=== PATIENT | male | born 1945 | race Caucasian/White ===

== ENCOUNTER 2018-07-17 23:59 | Observation (INO) ==
[2018-07-18 00:23] VITALS: BMI 27.2
--- NOTE | 2018-07-18 00:27 | DR.GENAD ---
HPI - Complaint/Symptoms Chief Complaint Doctors Comments: Patient states he has been having problems with his speech for the past three hours with a dull headache. states he has had a subdural 2002 and has been having TIA since. States he has had a lacunar infarct and has been diagnosed with cognitive decline. He denies chest pain or SOB. States he has a neuropathy and do not feel pain in his chest and did not feel any pain when he had his last ID. States he had a ID in 2000 and had two stents placed in [place]. He denies tobacco or alcohol usage. He is a patient of Dr. galeano and states he just saw his doctor in [place], neurologist a few months ago. States he is not taking a baby aspirin any more and is not taking any anticoagulation. Patient denies any recent trauma. - Nurses notes reviewed Nurses Notes Review: Yes - Source History Provided: Patient, Family Member - Mode of Arrival Mode of Arrival: Ambulatory - Timing Came on: Gradually - Duration Duration: Constant How lon Duration: Hours - Location Location: slurred speech; headache - Severity Severity: Mild - Modifying Factors Worsens:: nothing Improves:: nothing PMH - PMH Past Medical History: Coronary Artery Disease, Diabetes (Controlled with diet), Dyslipidemia, Hypertension, Kidney Stones Past Surgical History: Yes Surgical History: Angioplasty/Stents, Cholecystectomy, Lithotripsy - Family History Family Medical History: Diabetes Mellitus, Cancer, ID, Coronary Artery Disease, Heart Failure, Hypertension - Social History Do you use any recreational Drugs:: No ROS - Review of Systems Constitutional: No Symptoms Reported. negative: See HPI, Chills, Diaphoresis, Fever, Malaise, Weakness, Irritable, Fatigue, Loss of Appetite, Other Eyes: No Symptoms Reported ENTM: No Symptoms Reported Respiratoy: No Symptoms Reported. negative: See HPI, Productive Cough, Non- Productive Cough, Moist Cough, Dry Cough, Hacking Cough, Barking Cough, Brassy Cough, Orthopnea, Short of Breath, Stridor, Wheezing, Hemoptysis, Other Cardiovascular: No Symptoms Reported. negative: See HPI, Chest Pain, Edema, Palpitations, Syncope, Cyanosis, Skin Mottling, Other Gastrointestinal/Abdominal: No Symptoms Reported. negative: See HPI, Abdominal Pain, Constipation, Diarrhea, Nausea, Vomiting, Food Intolerance, Other Genitourinary: No Symptoms Reported. negative: See HPI, Discharge, Dysuria, Frequency, Hematuria, Pain, Bleeding, Other Neurological: No Symptoms Reported, Headache, Speech Problem Musculoskeletal: No Symptoms Reported Integumentary: No Symptoms Reported. negative: See HPI, Change in Color, Change in Hair/Nails, Dryness, Lesions, Lumps, Rash, Itching, Wound, Bruises, Juandice, Other Hematologic/Lymphatic: No Symptoms Reported Endocrine: No Symptoms Reported Psychiatric: No Symptoms Reported. negative: See HPI, Anxiety, Depression, Hallucinations, Excessive crying, Suicidal, Other PE - General Limitations: No Limitations General Appearance: Alert, In Distress (slight) - Head Head Exam: Normal Inspection, Atraumatic, Normocephalic - Eyes Eye exam: Normal Appearance, PERRL, EOMI. negative: Scleral Icterus, Conjunctival Injection, Nystagmus, Miosis, Mydrasis, Periorbital Swelling, Periorbital Tenderness, Other - ENT ENT Exam: Normal Exam, Normal Oropharynx, Normal External Ear Exam, Mucous Membranes Moist, TM's Normal Bilaterally External Ear Exam: Normal External Inspection TM/Canal Exam: Bilateral Normal Nose Exam: Normal Nose Exam Mouth Exam: Normal Inspection. negative: Drooling, Trismus, Lip Swelling, Tongue Elevation, Tongue Swelling, Laceration, Other Throat Exam: Normal Inspection. negative: Tonsillar Erythema, Tonsillomegaly, Tonsillar Exudate, R Peritonsillar Mass, L Peritonsillar Mass, Muffled Voice, Other - Neck Neck Exam: Normal Inspection, Full ROM, Trachea Midline. negative: Tenderness, Meningismus, Lymphadenopathy, Thyromegaly, Other - Chest Chest Inspection: Normal Inspection, Symmetric Chest Wall Rise - Respiratory Respiratory Exam: Normal Lung Sounds Bilat Respiratory Exam: Bilateral Clear to Auscultation - Cardiovascular Cardiovascular Exam: Regular Rate, Normal Rhythm, Normal Heart Sounds, Systolic Murmur - Abdominal Exam Abdominal Exam: Normal Inspection, Normal Bowel Sounds, Soft. negative: Distention, Tenderness, Guarding, Rebound, Rigidity, Dimnished Bowel Sounds, Hyperactive Bowel Sounds, Hypoactive Bowel Sounds, Organomegaly, Trauma, Incision, Ascites, Mass, Bruit, Pulsatile Mass, Hernia, Other Abdominal Tenderness: negative: RUQ, RLQ, LUQ, LLQ, Epigastrium, Suprapubic, Diffuse, Mild, Moderate, Severe, Other - Extremities Extremities Exam: Normal Inspection, Full ROM, Normal Capillary Refill. negative: Tenderness, Edema, Joint Swelling, Calf Tenderness, Other - Back Back Exam: Normal Inspection, Full ROM. negative: Tenderness, (R) CVA Tende rness, (L) CVA Tenderness, Muscle Spasm, Paraspinal Tenderness, Vertebral Tenderness, Rashes, (R) Sciatic Notch Tenderness, (L) Sciatic Notch Tendern, (R) Straight Leg Raise, (L) Straight Leg Raise, Other - Neurologic Neurological Exam: Alert, Oriented X3, CN II-XII Intact, Reflexes Normal. negative: Normal Gait (gait not tested) - Psychiatric Psychiatric Exam: Normal Affect, Normal Mood. negative: Depressed, Agitated, Anxious, Flat Affect, Manic, Homicidal Ideation, Suicidal Ideation, Other - Skin Skin Exam: Warm, Dry, Intact, Normal Color - Vital Signs Vitals: Temperature 97.8 F Pulse Rate [Apical] 67 Pulse Rate 76 Respiratory Rate 16 Blood Pressure [Left Arm] 183/97 Blood Pressure 193/95 O2 Sat by Pulse Oximetry 100 Course - Reevaluation 1st: Improved - Consultation Called: : Call Returned: :28 (Dr. Galeano to admit) - Education/Counseling Education/Counseling: Patient, Family Educated On: Treatment, Diagnosis, Needs for Follow Up ROR - Labs Reviewed Laboratory Results Reviewed?: Yes (All labs and x-ray results reviewed and discussed with patient and spouse) Result Diagrams: 07/18/18 00:20 07/18/18 00:20 - XRAY XRAY Interpreted by: Radiologist (CT head: No acute intracranial abnormality. Lacunar infarct of left thalamus, chronic) XRAY Findings: CXR: No acute cardiopulmonary changes noted. - Labs Reviewed Laboratory: WBC 8.5 X10^3/uL (3.6-10.0) 07/18/18 00:20 RBC 5.28 X10^6/uL (4.7-6.0) 07/18/18 00:20 Hgb 16.0 g/dL (13.5-18.0) 07/18/18 00:20 Hct 47.2 % (42.0-54.0) 07/18/18 00:20 MCV 89.4 fL (80.0-100.0) 07/18/18 00:20 MCH 30.3 pg (27.0-34.0) 12/09/18 00:20 MCHC 33.9 g/dL (33.0-35.0) 07/18/18 00:20 RDW 14.4 % (11.6-16.5) 07/18/18 00:20 Plt Count 168 X10^3/uL (150.0-450.0) 07/18/18 00:20 MPV 8.7 fL (7.4-11.0) 07/18/18 00:20 Neut % (Auto) 66.1 % (42.0-75.0) 07/18/18 00:20 Lymph % (Auto) 19.7 % (21.0-51.0) L 07/18/18 00:20 [place] % (Auto) 9.4 % (0.0-13.0) 07/18/18 00:20 Eos % (Auto) 4.2 % (0.9-2.9) H 07/18/18 00:20 Baso % (Auto) 0.6 % (0.2-1.0) 07/18/18 00:20 Neut # (Auto) 5.6 x10^3/uL (2.2-4.8) H 07/18/18 00:20 Lymph # (Auto) 1.7 X10^3/uL (1.3-2.9) 07/18/18 00:20 [place] # (Auto) 0.8 x10^3/uL (0.3-0.8) 07/18/18 00:20 Eos # (Auto) 0.4 x10^3/uL (0.0-0.2) H 07/18/18 00:20 Baso # (Auto) 0.0 X10^3/uL (0.0-0.1) 07/18/18 00:20 Absolute Nucleated RBC 0.1 /100WBC 07/18/18 00:20 INR Target Range - 07/18/18 00:20 INR 0.98 (0.8-1.3) 07/18/18 00:20 APTT 26.1 SECONDS (22.9-36.5) 07/18/18 00:20 PTT Comment - 07/18/18 00:20 Sodium 141 mmol/L (136-145) 07/18/18 00:20 Corrected Sodium TNP 07/18/18 00:20 Potassium 3.9 mmol/L (3.5-5.1) 07/18/18 00:20 Chloride 104 mmol/L (98-107) 07/18/18 00:20 Carbon Dioxide 27.1 mmol/L (21-32) 07/18/18 00:20 BUN 11 mg/dL (7-18) 07/18/18 00:20 Creatinine 1.01 mg/dL (0.70-1.30) 07/18/18 00:20 Est GFR (MDRD) Af Amer > 60 (>60) 07/18/18 00:20 Est GFR (MDRD) Non-Af > 60 (>60) 07/18/18 00:20 Glucose 100 mg/dL (65-99) H 07/18/18 00:20 Calcium 8.6 mg/dL (8.5-10.1) 07/18/18 00:20 Corrected Calcium TNP 07/18/18 00:20 Magnesium 1.8 mg/dL (1.7-2.9) 07/18/18 00:20 Total Bilirubin 1.40 mg/dL (0.2-1.0) H 07/18/18 00:20 AST 17 Units/L (15-37) 07/18/18 00:20 ALT 21 Units/L (12-78) 07/18/18 00:20 Alkaline Phosphatase 83 Units/L (46-116) 07/18/18 00:20 Creatine Kinase 81 Units/L (39-308) 07/18/18 00:20 CK-MB (CK-2) 2.0 ng/mL (0-4.0) 07/18/18 00:20 CK/CKMB % Calc 2.5 % (<4) 07/18/18 00:20 Troponin I < 0.02 ng/mL (0-1.5) 07/18/18 00:20 Total Protein 7.2 g/dL (6.4-8.2) 07/18/18 00:20 Albumin 3.8 g/dL (3.4-5.0) 07/18/18 00:20 Globulin 3.4 g/dL (2.5-4.5) 07/18/18 00:20 Albumin/Globulin Ratio 1.1 Ratio (1.1-2.1) 07/18/18 00:20 - Diagnosis Discharge Problem: Acute alteration in mental status, Speech abnormality, TIA (transient ischemic attack), Essential hypertension, History of subdural hemorrhage, Left sided lacunar infarction - Discharge Plan Disposition: ADMITTED INPATIENT Condition: Stable - Follow ups/Referrals Follow ups/Referrals: GORDO SETHI [Primary Care Provider] - 3 days - Instructions
[2018-07-18 00:33] LABS: BASOPHILS % (AUTO) 0.6 % (0.2-1.0); EOSINOPHILS # (AUTO) 0.4 x10^3/uL (0.0-0.2); EOSINOPHILS % (AUTO) 4.2 % (0.9-2.9); HEMATOCRIT 47.2 % (42.0-54.0); LYMPHOCYTES # (AUTO) 1.7 X10^3/uL (1.3-2.9); LYMPHOCYTES % (AUTO) 19.7 % (21.0-51.0); MEAN CORPUSCULAR HEMOGLOBIN 30.3 pg (27.0-34.0); MEAN CORPUSCULAR HGB CONC 33.9 g/dL (33.0-35.0); MEAN CORPUSCULAR VOLUME 89.4 fL (80.0-100.0); MEAN PLATELET VOLUME 8.7 fL (7.4-11.0); MONOCYTES # (AUTO) 0.8 x10^3/uL (0.3-0.8); MONOCYTES % (AUTO) 9.4 % (0.0-13.0); NEUTROPHILS # (AUTO) 5.6 x10^3/uL (2.2-4.8); NEUTROPHILS % (AUTO) 66.1 % (42.0-75.0); PLATELET COUNT 168 X10^3/uL (150.0-450.0); RED BLOOD COUNT 5.28 X10^6/uL (4.7-6.0); RED CELL DISTRIBUTION WIDTH 14.4 % (11.6-16.5); WHITE BLOOD COUNT 8.5 X10^3/uL (3.6-10.0)
--- NOTE | 2018-07-18 00:50 | CT ---
CT head without contrast Indication: Slurred speech, headache Technique: Helical CT images of the brain were obtained without IV contrast. Reformatted images in the coronal and sagittal planes were also generated for review. Comparison: None Findings: There is age-appropriate generalized cerebral atrophy with commensurate ventricular and sulcal enlargement. There is a small chronic lacunar infarct of the left thalamus. There are patchy and confluent areas of periventricular and subcortical white matter hypoattenuation, which are nonspecific but likely reflect chronic microangiopathic disease. Juan-white differentiation is otherwise maintained. No visible acute infarction, intracranial hemorrhage, extra-axial collection, hydrocephalus or mass is identified. The visualized paranasal sinuses and mastoid air cells are grossly clear. Ana holes are present within the right frontal and parietal calvarium. The remaining imaged extracranial structures are grossly unremarkable. Impression: No acute intracranial abnormality. Age-related atrophy, moderate microangiopathy and additional chronic findings as above. Reported By:
[2018-07-18 00:58] LABS: BLOOD UREA NITROGEN 11 mg/dL (7-18); CALCIUM 8.6 mg/dL (8.5-10.1); CARBON DIOXIDE 27.1 mmol/L (21-32); CHLORIDE 104 mmol/L (98-107); CREATININE 1.01 mg/dL (0.70-1.30); SODIUM 141 mmol/L (136-145); TROPONIN I < 0.02 ng/mL (0-1.5); eGFR NON BLACK RACES > 60 (>60)
[2018-07-18 01:12] LABS: ALANINE AMINOTRANSFERASE 21 Units/L (12-78); ALBUMIN 3.8 g/dL (3.4-5.0); ALKALINE PHOSPHATASE 83 Units/L (46-116); ASPARTATE AMINO TRANSFERASE 17 Units/L (15-37); CKMB % 2.5 % (<4); CREATINE KINASE 81 Units/L (39-308); MAGNESIUM 1.8 mg/dL (1.7-2.9); TOTAL PROTEIN 7.2 g/dL (6.4-8.2)
[2018-07-18] MEDS ORDERED: CATAPRES TAB 0.2 MG PO ONE (01:25)
[2018-07-18] MEDS ORDERED: CATAPRES TAB 0.1 MG PO ONE (01:32)
[2018-07-18] MEDS ORDERED: CATAPRES TAB 0.1 MG ONE (01:32)
--- NOTE | 2018-07-18 01:45 | RAD ---
Chest, one view Indication: Chest pain Comparison: None Findings: The heart is borderline enlarged without congestive failure. No focal infiltrate, significant effusion or pneumothorax is identified. There is no acute osseous abnormality. Impression: Mild cardiomegaly without CHF or additional acute cardiopulmonary abnormality. Reported By:
[2018-07-18] MEDS ORDERED: FIORICET TAB PO ONE ×3 (02:56→08:07)
[2018-07-18 03:31] LABS: BILIRUBIN,URINE NEGATIVE (NEGATIVE); BLOOD/HEMOGLOBIN,URINE NEGATIVE (NEGATIVE); GLUCOSE, URINE NEGATIVE (NEGATIVE); KETONES,URINE 1+ (NEGATIVE); LEUKOCYTE ESTERASE ,URINE 1+ (NEGATIVE); NITRITES,URINE NEGATIVE (NEGATIVE); PROTEIN,URINE 1+ (NEGATIVE); UROBILINOGEN,URINE NORMAL (NORMAL)
[2018-07-18 03:37] LABS: APPEARANCE,URINE SLIGHTLY HAZY (CLEAR); COLOR,URINE YELLOW (YELLOW)
[2018-07-18 03:43] LABS: BACTERIA,URINE NEGATIVE /HPF (NEGATIVE); MUCUS,URINE FEW /HPF (NEGATIVE); RBC,URINE NONE SEEN /HPF (NONE SEEN); SQUAMOUS EPITHELIAL CELL,UR RARE /HPF (NEGATIVE)
[2018-07-18 06:32] LABS: CHOL/HDL RATIO 3.6 (0.0-5.0)
[2018-07-18] MEDS ORDERED: FIORICET TAB PO PRN (08:03)
[2018-07-18] MEDS: ZESTRIL TAB 5 MG PO SCH (08:16)
[2018-07-18] MEDS: LOPRESSOR TAB 50 MG PO SCH ×2 (08:16→20:37)
[2018-07-18] MEDS: CHOLECALCIFEROL 800 UNIT PO SCH (08:17)
[2018-07-18] MEDS: VITAMIN B-12 PO SCH (08:17)
[2018-07-18] MEDS: ALPHA LIPOIC ACID PO SCH (08:19)
[2018-07-18] MEDS: MAGNESIUM 250 MG PO SCH (08:19)
[2018-07-18] MEDS: COENZYME Q10 100 MG PO SCH (08:20)
[2018-07-18] MEDS: NORVASC TAB 5 MG PO SCH (10:57)
[2018-07-18] MEDS ORDERED: ZOCOR TAB 40 MG PO SCH (21:00)
[2018-07-19 05:24] LABS: BASOPHILS % (AUTO) 0.8 % (0.2-1.0); EOSINOPHILS # (AUTO) 0.3 x10^3/uL (0.0-0.2); HEMATOCRIT 45.5 % (42.0-54.0); HEMOGLOBIN 15.4 g/dL (13.5-18.0); LYMPHOCYTES # (AUTO) 1.4 X10^3/uL (1.3-2.9); LYMPHOCYTES % (AUTO) 21.6 % (21.0-51.0); MEAN CORPUSCULAR HEMOGLOBIN 30.7 pg (27.0-34.0); MEAN CORPUSCULAR HGB CONC 33.9 g/dL (33.0-35.0); MEAN CORPUSCULAR VOLUME 90.4 fL (80.0-100.0); MEAN PLATELET VOLUME 8.9 fL (7.4-11.0); MONOCYTES # (AUTO) 0.7 x10^3/uL (0.3-0.8); MONOCYTES % (AUTO) 10.8 % (0.0-13.0); NEUTROPHILS % (AUTO) 62.8 % (42.0-75.0); PLATELET COUNT 149 X10^3/uL (150.0-450.0); RED BLOOD COUNT 5.03 X10^6/uL (4.7-6.0); RED CELL DISTRIBUTION WIDTH 14.4 % (11.6-16.5); WHITE BLOOD COUNT 6.3 X10^3/uL (3.6-10.0)
[2018-07-19 05:36] LABS: ALANINE AMINOTRANSFERASE 18 Units/L (12-78); ALBUMIN 3.4 g/dL (3.4-5.0); ALKALINE PHOSPHATASE 70 Units/L (46-116); ASPARTATE AMINO TRANSFERASE 15 Units/L (15-37); BLOOD UREA NITROGEN 11 mg/dL (7-18); CALCIUM 8.3 mg/dL (8.5-10.1); CARBON DIOXIDE 27.1 mmol/L (21-32); CHLORIDE 105 mmol/L (98-107); CREATININE 1.04 mg/dL (0.70-1.30); SODIUM 142 mmol/L (136-145); TOTAL PROTEIN 6.5 g/dL (6.4-8.2); eGFR NON BLACK RACES > 60 (>60)
[2018-07-19] MEDS: NORVASC TAB 5 MG PO SCH (08:23)
[2018-07-19] MEDS: ZESTRIL TAB 5 MG PO SCH (08:23)
[2018-07-19] MEDS: ALPHA LIPOIC ACID PO SCH (08:23)
[2018-07-19] MEDS: MAGNESIUM 250 MG PO SCH (08:23)
[2018-07-19] MEDS: CHOLECALCIFEROL 800 UNIT PO SCH (08:23)
[2018-07-19] MEDS: LOPRESSOR TAB 50 MG PO SCH (08:23)
[2018-07-19] MEDS: COENZYME Q10 100 MG PO SCH (08:23)
[2018-07-19] MEDS: VITAMIN B-12 PO SCH (08:23)
[2018-07-19 12:32] VITALS: BP 132/77
--- NOTE | 2018-07-19 12:52 | MRI ---
MRI of the brain without contrast Indication: Altered mental status, speech aphasia Comparison: CT head 07/18/2018 Technique: Multiplanar multi sequence MR images of the brain were obtained without contrast. Findings: There is no abnormal restricted diffusion to suggest acute or subacute infarct. There are small chronic lacunar infarcts of both thalami and nadege. There is periventricular and patchy deep white matter T2/FLAIR hyperintensity, compatible with moderate chronic microangiopathy. Multiple small scattered foci of cerebral and cerebellar blooming artifact are observed on the gradient sequence. No acute bleed, mass, mass effect, or abnormal extra-axial collection is identified. The major intracranial flow voids are noted. 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 Impression: No acute intracranial abnormality. Chronic white matter microangiopathy with multiple small old lacunar infarcts. Scattered small foci of blooming artifact, suggestive for chronic microhemorrhages, possibly hypertensive or secondary to amyloid angiopathy. Reported By:
--- NOTE | 2018-07-27 08:43 | DR.CARTERS ---
Short Stay Summary - Admission Date Date of Admission: 07/18/18 - Discharge Date Discharge Date: 07/19/18 - Admission Diagnoses (1) Acute alteration in mental status Status: Acute (2) Speech abnormality Status: Acute (3) TIA (transient ischemic attack) Status: Acute (4) Essential hypertension Status: Acute - Hospital Course Hospital Course: IS A 73 YEAR OLD WHITE MALE WHO PRESENTED TO THE ER WITH COMPLAINTS OF CHANGES IN SPEECH FOR THE PAST THREE HOURS WITH A DULL HEADACHE. PATIENT REPORTED A SUBDURAL IN 2001 WHICH HAS CAUSED MULTIPLE TIAs SINCE. HE REPORTED BEING DIAGNOSED WITH COGNITIVE DECLINE FROM A LACUNAR INFARCT. HE DENIED CHEST PAIN OR SOB. PATIENT ALSO HAS A HISTORY OF MA IN 2000 FOR WHICH STENTS WERE PLACED. ON ARRIVAL, VITALS WERE 97.8-76-20-97%-193/95. LABS WERE OBTAINED. GLUCOSE 100, TOTAL BILI 1.40, OTHERWISE, HE WAS HEMODYNAMICALLY STABLE. CHEST XRAY REVEALED: Mild cardiomegaly without CHF or additional acute cardiopulmonary abnormality. BRAIN CT REVEALED: No acute intracranial abnormality. Age-related atrophy, moderate microangiopathy and additional chronic findings as above. EKG REVEALED: SINUS RHYTHM WITH HR 67. HE WAS GIVEN CAPATRES 0.1MG PO X 1 DOSE AND FIORCET IN THE ER. BLOOD PRESSURE DECREASED TO 164/94. HE WAS ADMITTED FOR FURTHER EVALUATION AND TREATMENT OF AMS, TIA, SPEECH APHASIA. WE ADDED AMLODIPINE 5MG PO DAILY. OTHERWISE, WE PLANNED TO FOLLOW UP WITH AM LABS AND MRI AND CONTINUE TO MONITOR. THE MORNING FOLLOWING ADMISSION, PATIENT IS ALERT AND ORIENTED, LYING IN BED ON MORNING ROUNDS. HE DENIES HEADACHE OR SLURRED SPEECH. HIS VITALS ON MORNING ROUNDS WERE 98.0-73-18-96%-144/88. LABS WERE HEMODYNAMICALLY STABLE. A BRAIN MRI WAS OBTAINED THIS MORNING AND REVEALED: No acute intracranial abnormality. Chronic white matter microangiopathy with multiple small old lacunar infarcts. Scattered small foci of blooming artifact, suggestive for chronic microhemorrhages, possibly hypertensive or secondary to amyloid angiopathy. WE PLANNED FOR DISCHARGE. INSTRUCTIONS FOR MEDICATIONS AND FOLLOW UP WERE DISCUSSED WITH PATIENT AND SPOUSE. THEY VERBALIZED UNDERSTANDING. HE WAS DISCHARGED WITH A NEW PRESCRIPTION FOR NORVASC 5MG PO DAILY AND INSTRUCTED TO FOLLOW UP WITH HIS PRIMARY CARE PHYSICIAN. HE WAS DISCHARGED HOME WITH FAMILY IN STABLE CONDITION. - Discharge Medications Discharge Medications: Home Medication List amitriptyline 10 mg PO QHS PRN 07/18/18 [History] lisinopril 5 mg PO QDAY 07/18/18 [History] amlodipine 5 mg PO DAILY #30 tab 07/19/18 [Rx] Prescriptions: amlodipine Jose Roberto Henderson - Discharge Plan Disposition: HOME, SELF-CARE Condition: Stable Prescriptions: amlodipine 5 mg PO DAILY #30 tab - Follow up/Referrals Follow up/Referrals: Jose Roberto Henderson [STAFF PHYSICIAN] - 07/26/18 10:50 am GORDO SETHI [Primary Care Provider] - 07/22/18 10:30 am - Instructions Instructions: Coronary Artery Disease, Male, Transient Ischemic Attack, [id number], Hypertension, [id number], General Headache Without Cause, [id number] Additional Instructions: DIET TOLERATED. ACTIVITY TOLERATED. Forms: Patient Portal
== END 2018-07-19 15:47 | disposition home or self-care (01) ==
LOC: ER 07-18 00:03 → MED/SURG 07-18 00:03
PROVIDERS: ADMIT Internal Medicine; ATTEND Internal Medicine
DX: E78.2 Mixed hyperlipidemia; R47.81 Slurred speech; I25.10 Atherosclerotic heart disease of native coronary artery without angina pectoris; Z86.79 Personal history of other diseases of the circulatory system; I25.2 Old myocardial infarction; G45.8 Other transient cerebral ischemic attacks and related syndromes; R40.4 Transient alteration of awareness; Z95.5 Presence of coronary angioplasty implant and graft; Z79.899 Other long term (current) drug therapy; I10 Essential (primary) hypertension; R51 Headache; R94.31 Abnormal electrocardiogram [ECG] [EKG]
CPT/HCPCS: 36415; 70450; 70551; 71010; 71045; 80053; 80061; 81001; 82550; 82553; 83735; 84484; 85025; 85610; 85730; 93005; 94760; 96365; 99284; A4222; G0378

== ENCOUNTER 2021-09-08 06:18 | Observation (INO) ==
[2021-09-08] MEDS ORDERED: APRESOLINE INJ 20 MG VIAL IVP ONE (06:30)
--- NOTE | 2021-09-08 06:33 | DR.HTN ---
HPI <Kailyn Santiago - Last Filed: 09/08/21 08:00> Time Seen Time Seen by Provider: 09/08/21 06:30 HPI Comment HPI Comment: Pt with Parkinson's with dementia brought in by ems for "making no sense" this morning when he woke to go to bathroom; according to his , his bp was elevated and he had a bower so she called ems; no cp, sob, cough, fever, chills, abd pain, n/v/d <CASEYNICOL NUVIAOWALE - Last Filed: 09/08/21 09:20> Primary Care Physician Primary Care Physician: Santiago HPI Comment HPI Comment: 76 y/o male presenting with altered mental status according to his spouse. Pt. was endorsed over to me by Dr. Santiago. The hx. was reviewed and I went by to see pt., examine him. His spouse was in the room PMH <Kailyn Santiago - Last Filed: 09/08/21 08:00> PMH Past Medical History: Coronary Artery Disease, Dementia, Depression, Diabetes, Dyslipidemia, Hypertension, Kidney Stones and Sleep Apnea Past Surgical History: Yes Surgical History: Angioplasty/Stents, Cholecystectomy, Ortho Surgery, Li thotripsy and Other Family History Family Medical History: Diabetes Mellitus, Cancer, [place], Coronary Artery Disease, Heart Failure and Hypertension Social History Do you use any recreational Drugs:: No ROS <Kailyn Santiago - Last Filed: 09/08/21 08:00> Review of Systems Unable to Obtain Due To: Dementia PE <Kailyn Santiago - Last Filed: 09/08/21 08:00> Vital Signs Vitals: Temperature 98.2 F Pulse Rate 90 Respiratory Rate 16 Blood Pressure [Left Arm] 112/65 Blood Pressure [Standing] 138/65 Blood Pressure [Sitting] 140/68 Blood Pressure [Lying] 135/73 Blood Pressure 167/83 O2 Sat by Pulse Oximetry 99 General Limitations: No Limitations General Appearance: Alert and In No Apparent Distress Head Head Exam: Normal Inspection Eyes Eye exam: Normal Appearance ENT ENT Exam: Normal Exam Neck Neck Exam: Normal Inspection Chest Chest Inspection: Normal Inspection and Symmetric Chest Wall Rise Respiratory Respiratory Exam: Normal Lung Sounds Bilat Respiratory Exam: Bilateral: Clear to Auscultation Cardiovascular Cardiovascular Exam: Regular Rate and Normal Rhythm Abdominal Exam Abdominal Exam: Normal Inspection, Normal Bowel Sounds and Soft Extremities Extremities Exam: Normal Inspection Neurologic Neurological Exam: Alert Skin Skin Exam: Warm, Dry, Intact and Normal Color <STACIE ALSTON - Last Filed: 09/08/21 09:20> Vital Signs Vitals: Temperature 98.2 F Pulse Rate 90 Respiratory Rate 16 Blood Pressure [Left Arm] 112/65 Blood Pressure [Standing] 138/65 Blood Pressure [Sitting] 140/68 Blood Pressure [Lying] 135/73 Blood Pressure 167/83 O2 Sat by Pulse Oximetry 99 General Limitations: No Limitations General Appearance: Alert and In No Apparent Distress Head Head Exam: Normal Inspection, Atraumatic and Normocephalic Eyes Eye exam: Normal Appearance and EOMI ENT ENT Exam: Normal Exam, Normal Oropharynx, Normal External Ear Exam and Mucous Membranes Moist Neck Neck Exam: Normal Inspection, Full ROM and Trachea Midline Chest Chest Inspection: Normal Inspection and Symmetric Chest Wall Rise Respiratory Respiratory Exam: Normal Lung Sounds Bilat Cardiovascular Cardiovascular Exam: Regular Rate, Normal Rhythm, Normal Heart Sounds, +S1 and +S2 Abdominal Exam Abdominal Exam: Normal Inspection, Normal Bowel Sounds and Soft Extremities Extremities Exam: Normal Inspection Back Back Exam: Normal Inspection Neurologic Neurological Exam: Alert Psychiatric Psychiatric Exam: Normal Affect and Normal Mood Skin Skin Exam: Intact MDM <Kailyn Santiago - Last Filed: 09/08/21 08:00> Differential Diagnosis Differential Diagnosis: HTN encephalopathy and Hypertensive urgency Differential Diagnosis Comment: cva, uti COURSE <Kailyn Santiago - Last Filed: 09/08/21 08:00> Treatment Treatment: 714 several runs of vtach caught on telemetry; tsh, mag added to bloodwork; vss 0745 pt with cp per ; he nods yes when asked; no vomiting; wants him "shipped out as soon as you can" for the vtach; living will wants everything done as long as md has reasonable expectation of recovery 0800 76 y/o with Parkinson's, dementia, cad w/several runs of vtach now with cp; ntg placed; asa and lopressor 5mg given; cardiac enzymes drawn; ekg benign; care to Dr Alston <STACIE ALSTON - Last Filed: 09/08/21 09:20> Treatment Treatment: I have reviewed labs. ( before my arrival and pending). His cardiac enzyme set was normal. I then spoke with Dr. Steve about presentation, v/s and events here with recommendation for admit to observation status. Dr. Steve admits to placement in obsevation. Admit orders have been written. Reevaluation 1st: Resolved Education/Counseling Education/Counseling: Patient, Family, Education and Counseling Educated On: Treatment, Diagnosis, Prognosis and Needs for Follow Up ROR <Kailyn Santiago - Last Filed: 09/08/21 08:00> Labs Reviewed Result Diagrams: 09/08/21 06:44 09/08/21 06:44 Laboratory: WBC 5.5 X10^3/uL (3.6-10.0) 09/08/21 06:44 RBC 4.35 X10^6/uL (4.7-6.0) L 09/08/21 06:44 Hgb 12.8 g/dL (13.5-18.0) L 09/08/21 06:44 Hct 37.8 % (42.0-54.0) L 09/08/21 06:44 MCV 86.9 fL (80.0-100.0) 09/08/21 06:44 MCH 29.5 pg (27.0-34.0) 09/08/21 06:44 MCHC 34.0 g/dL (33.0-35.0) 09/08/21 06:44 RDW 14.7 % (11.6-16.5) 09/08/21 06:44 Plt Count 110 X10^3/uL (150.0-450.0) L 09/08/21 06:44 MPV 8.0 fL (7.4-11.0) 09/08/21 06:44 Neut % (Auto) 63.6 % (42.0-75.0) 09/08/21 06:44 Lymph % (Auto) 23.5 % (21.0-51.0) 09/08/21 06:44 [place] % (Auto) 9.2 % (0.0-13.0) 09/08/21 06:44 Eos % (Auto) 3.3 % (0.9-2.9) H 09/08/21 06:44 Baso % (Auto) 0.4 % (0.2-1.0) 09/08/21 06:44 Neut # (Auto) 3.5 x10^3/uL (2.2-4.8) 09/08/21 06:44 Lymph # (Auto) 1.3 X10^3/uL (1.3-2.9) 09/08/21 06:44 [place] # (Auto) 0.5 x10^3/uL (0.3-0.8) 09/08/21 06:44 Eos # (Auto) 0.2 x10^3/uL (0.0-0.2) 09/08/21 06:44 Baso # (Auto) 0.0 X10^3/uL (0.0-0.1) 09/08/21 06:44 Absolute Nucleated RBC 0.0 /100WBC 09/08/21 06:44 Sodium 140 mmol/L (136-145) 09/08/21 06:44 Corrected Sodium 141 mmol/L (136-145) 09/08/21 06:44 Potassium 3.8 mmol/L (3.5-5.1) 09/08/21 06:44 Chloride 103 mmol/L (98-107) 09/08/21 06:44 Carbon Dioxide 26.9 mmol/L (21-32) 09/08/21 06:44 BUN 18 mg/dL (7-18) 09/08/21 06:44 Creatinine 0.91 mg/dL (0.70-1.30) 09/08/21 06:44 Est GFR (MDRD) Af Amer > 60 (>60) 09/08/21 06:44 Est GFR (MDRD) Non-Af > 60 (>60) 09/08/21 06:44 Glucose 132 mg/dL (65-99) H 09/08/21 06:44 Calcium 9.1 mg/dL (8.5-10.1) 09/08/21 06:44 Corrected Calcium Cancelled 09/08/21 06:44 Total Bilirubin Cancelled 09/08/21 06:44 AST Cancelled 09/08/21 06:44 ALT Cancelled 09/08/21 06:44 Alkaline Phosphatase Cancelled 09/08/21 06:44 Creatine Kinase 36 Units/L (39-308) L 09/08/21 06:44 CK-MB (CK-2) 1.3 ng/mL (0-4.0) 09/08/21 06:44 CK/CKMB % Calc 3.6 % (<4) 09/08/21 06:44 Troponin I High Sens 15.2 ng/L (4.0-60.0) 09/08/21 06:44 Total Protein Cancelled 09/08/21 06:44 Albumin Cancelled 09/08/21 06:44 Globulin Cancelled 09/08/21 06:44 Albumin/Globulin Ratio Cancelled 09/08/21 06:44 TSH 3rd Generation Cancelled 09/08/21 06:41 Specimen Type Clean catch urine 09/08/21 07:12 Urine Color Yellow (YELLOW) 09/08/21 07:12 Urine Appearance Clear (CLEAR) 09/08/21 07:12 Urine pH 8.0 (5.0 - 8.0) 09/08/21 07:12 Ur Specific [place] 1.015 (1.000-1.030) 09/08/21 07:12 Urine Protein 2+ (NEGATIVE) 09/08/21 07:12 Urine Glucose (UA) Negative (NEGATIVE) 09/08/21 07:12 Urine Ketones Negative (NEGATIVE) 09/08/21 07:12 Urine Occult Blood 5+ (NEGATIVE) 09/08/21 07:12 Urine Nitrite Negative (NEGATIVE) 09/08/21 07:12 Urine Bilirubin Negative (NEGATIVE) 09/08/21 07:12 Urine Urobilinogen Normal (NORMAL) 09/08/21 07:12 Ur Leukocyte Esterase Negative (NEGATIVE) 09/08/21 07:12 Urine RBC Tntc /HPF (0-3) A 09/08/21 07:12 Urine WBC 0-2 /HPF (0-5) 09/08/21 07:12 Ur Squamous Epith Cells Negative /HPF (NEGATIVE) 09/08/21 07:12 Urine Bacteria Negative /HPF (NEGATIVE) 09/08/21 07:12 Ur Culture Indicated? No/not indicated 09/08/21 07:12 SARS CoV-2 RNA Rapid JOHNNY Negative (NEGATIVE) 09/08/21 07:41 <ADEWUNMI SOBOWALE - Last Filed: 09/08/21 09:20> Labs Reviewed Laboratory Results Reviewed?: Yes Laboratory: WBC 5.5 X10^3/uL (3.6-10.0) 09/08/21 06:44 RBC 4.35 X10^6/uL (4.7-6.0) L 09/08/21 06:44 Hgb 12.8 g/dL (13.5-18.0) L 09/08/21 06:44 Hct 37.8 % (42.0-54.0) L 09/08/21 06:44 MCV 86.9 fL (80.0-100.0) 09/08/21 06:44 MCH 29.5 pg (27.0-34.0) 09/08/21 06:44 MCHC 34.0 g/dL (33.0-35.0) 09/08/21 06:44 RDW 14.7 % (11.6-16.5) 09/08/21 06:44 Plt Count 110 X10^3/uL (150.0-450.0) L 09/08/21 06:44 MPV 8.0 fL (7.4-11.0) 09/08/21 06:44 Neut % (Auto) 63.6 % (42.0-75.0) 09/08/21 06:44 Lymph % (Auto) 23.5 % (21.0-51.0) 09/08/21 06:44 [place] % (Auto) 9.2 % (0.0-13.0) 09/08/21 06:44 Eos % (Auto) 3.3 % (0.9-2.9) H 09/08/21 06:44 Baso % (Auto) 0.4 % (0.2-1.0) 09/08/21 06:44 Neut # (Auto) 3.5 x10^3/uL (2.2-4.8) 09/08/21 06:44 Lymph # (Auto) 1.3 X10^3/uL (1.3-2.9) 09/08/21 06:44 [place] # (Auto) 0.5 x10^3/uL (0.3-0.8) 09/08/21 06:44 Eos # (Auto) 0.2 x10^3/uL (0.0-0.2) 09/08/21 06:44 Baso # (Auto) 0.0 X10^3/uL (0.0-0.1) 09/08/21 06:44 Absolute Nucleated RBC 0.0 /100WBC 09/08/21 06:44 Sodium 140 mmol/L (136-145) 09/08/21 06:44 Corrected Sodium 141 mmol/L (136-145) 09/08/21 06:44 Potassium 3.8 mmol/L (3.5-5.1) 09/08/21 06:44 Chloride 103 mmol/L (98-107) 09/08/21 06:44 Carbon Dioxide 26.9 mmol/L (21-32) 09/08/21 06:44 BUN 18 mg/dL (7-18) 09/08/21 06:44 Creatinine 0.91 mg/dL (0.70-1.30) 09/08/21 06:44 Est GFR (MDRD) Af Amer > 60 (>60) 09/08/21 06:44 Est GFR (MDRD) Non-Af > 60 (>60) 09/08/21 06:44 Glucose 132 mg/dL (65-99) H 09/08/21 06:44 Calcium 9.1 mg/dL (8.5-10.1) 09/08/21 06:44 Corrected Calcium Cancelled 09/08/21 06:44 Total Bilirubin Cancelled 09/08/21 06:44 AST Cancelled 09/08/21 06:44 ALT Cancelled 09/08/21 06:44 Alkaline Phosphatase Cancelled 09/08/21 06:44 Creatine Kinase 36 Units/L (39-308) L 09/08/21 06:44 CK-MB (CK-2) 1.3 ng/mL (0-4.0) 09/08/21 06:44 CK/CKMB % Calc 3.6 % (<4) 09/08/21 06:44 Troponin I High Sens 15.2 ng/L (4.0-60.0) 09/08/21 06:44 Total Protein Cancelled 09/08/21 06:44 Albumin Cancelled 09/08/21 06:44 Globulin Cancelled 09/08/21 06:44 Albumin/Globulin Ratio Cancelled 09/08/21 06:44 TSH 3rd Generation Cancelled 09/08/21 06:41 Specimen Type Clean catch urine 09/08/21 07:12 Urine Color Yellow (YELLOW) 09/08/21 07:12 Urine Appearance Clear (CLEAR) 09/08/21 07:12 Urine pH 8.0 (5.0 - 8.0) 09/08/21 07:12 Ur Specific [place] 1.015 (1.000-1.030) 09/08/21 07:12 Urine Protein 2+ (NEGATIVE) 09/08/21 07:12 Urine Glucose (UA) Negative (NEGATIVE) 09/08/21 07:12 Urine Ketones Negative (NEGATIVE) 09/08/21 07:12 Urine Occult Blood 5+ (NEGATIVE) 09/08/21 07:12 Urine Nitrite Negative (NEGATIVE) 09/08/21 07:12 Urine Bilirubin Negative (NEGATIVE) 09/08/21 07:12 Urine Urobilinogen Normal (NORMAL) 09/08/21 07:12 Ur Leukocyte Esterase Negative (NEGATIVE) 09/08/21 07:12 Urine RBC Tntc /HPF (0-3) A 09/08/21 07:12 Urine WBC 0-2 /HPF (0-5) 09/08/21 07:12 Ur Squamous Epith Cells Negative /HPF (NEGATIVE) 09/08/21 07:12 Urine Bacteria Negative /HPF (NEGATIVE) 09/08/21 07:12 Ur Culture Indicated? No/not indicated 09/08/21 07:12 SARS CoV-2 RNA Rapid JOHNNY Negative (NEGATIVE) 09/08/21 07:41 Opioid <Kailyn Santiago - Last Filed: 09/08/21 08:00> Opioid Risk Tool Age (Jorge box if 16-45): No History of Preadolescent Sexual Abuse: No Total: 0 Total Score Risk Category: Low Risk Copyright: Marck HAYES predicting aberrant behaviors <ADEWUNMI SOBOWALE - Last Filed: 09/08/21 09:20> Opioid Risk Tool Total: 0 Total Score Risk Category: Low Risk <Kailyn Santiago - Last Filed: 09/08/21 08:00> Diagnosis Discharge Problem: Non-sustained ventricular tachycardia, Hypertension, uncontrolled Instructions Forms: Precautions for COVID19 [facility] Social Distancing
[2021-09-08] MEDS ORDERED: APRESOLINE INJ 20 MG VIAL ONE (06:41)
[2021-09-08 06:51] LABS: BASOPHILS % (AUTO) 0.4 % (0.2-1.0); EOSINOPHILS # (AUTO) 0.2 x10^3/uL (0.0-0.2); EOSINOPHILS % (AUTO) 3.3 % (0.9-2.9); HEMATOCRIT 37.8 % (42.0-54.0); HEMOGLOBIN 12.8 g/dL (13.5-18.0); LYMPHOCYTES # (AUTO) 1.3 X10^3/uL (1.3-2.9); LYMPHOCYTES % (AUTO) 23.5 % (21.0-51.0); MEAN CORPUSCULAR HEMOGLOBIN 29.5 pg (27.0-34.0); MEAN CORPUSCULAR VOLUME 86.9 fL (80.0-100.0); MONOCYTES # (AUTO) 0.5 x10^3/uL (0.3-0.8); MONOCYTES % (AUTO) 9.2 % (0.0-13.0); NEUTROPHILS # (AUTO) 3.5 x10^3/uL (2.2-4.8); NEUTROPHILS % (AUTO) 63.6 % (42.0-75.0); RED BLOOD COUNT 4.35 X10^6/uL (4.7-6.0); RED CELL DISTRIBUTION WIDTH 14.7 % (11.6-16.5); WHITE BLOOD COUNT 5.5 X10^3/uL (3.6-10.0)
[2021-09-08] MEDS ORDERED: ZOFRAN INJ 4 MG VIAL ONE ×2 (06:52→08:45)
[2021-09-08] MEDS ORDERED: ZOFRAN INJ 4 MG VIAL IVP ONE ×2 (06:53→08:56)
[2021-09-08 07:05] LABS: BLOOD UREA NITROGEN 18 mg/dL (7-18); CALCIUM 9.1 mg/dL (8.5-10.1); CARBON DIOXIDE 26.9 mmol/L (21-32); CHLORIDE 103 mmol/L (98-107); COR NA(FOR HYPERGLY) 141 mmol/L (136-145); CREATININE 0.91 mg/dL (0.70-1.30); SODIUM 140 mmol/L (136-145); eGFR NON BLACK RACES > 60 (>60)
[2021-09-08 07:16] LABS: BILIRUBIN,URINE NEGATIVE (NEGATIVE); BLOOD/HEMOGLOBIN,URINE 5+ (NEGATIVE); GLUCOSE, URINE NEGATIVE (NEGATIVE); KETONES,URINE NEGATIVE (NEGATIVE); LEUKOCYTE ESTERASE ,URINE NEGATIVE (NEGATIVE); NITRITES,URINE NEGATIVE (NEGATIVE); PROTEIN,URINE 2+ (NEGATIVE); UROBILINOGEN,URINE NORMAL (NORMAL)
[2021-09-08 07:20] LABS: APPEARANCE,URINE CLEAR (CLEAR); BACTERIA,URINE NEGATIVE /HPF (NEGATIVE); COLOR,URINE YELLOW (YELLOW); RBC,URINE TNTC /HPF (0-3); SQUAMOUS EPITHELIAL CELL,UR NEGATIVE /HPF (NEGATIVE)
[2021-09-08] MEDS ORDERED: NITRO-BID OINT 2% UD (E.R. USE ONLY) TD ONE (07:26)
--- NOTE | 2021-09-08 07:28 | CT ---
HISTORYAMS, HTNSTUDYCT HEAD WITHOUT CONTRASTCOMPARISONDecember 2020TECHNIQUEAxial CT of the head is performed from the base of the skull through the vertex WITHOUT contrast . Multiplaner reformats are generated from the original axial data.FINDINGSAge related cortical volume loss is observed. There is commensurate dilation of the lateral ventricles. Moderate chronic microangiopathic ischemic white matter changes of the supratentorial brain are observed. There is also a chronic appearing lacunar infarct associated with the left lateral thalamic nucleus. There is no evidence of an acute intracranial hemorrhage or extra-axial fluid collection. There is no mass effect, shift or cerebral edema. Atherosclerotic calcifications are associated with the cavernous ICA segments. There is no acute stage, large artery territorial infarct.Sinuses and mastoid air cells are predominantly clear. Surgical sandra holes of the right frontal and parietal skull are observed. Otherwise the calvarium is intact. The cranial cervical alignment is maintained. The cerebellar tonsils are in a normal position. There is no suprasellar asymmetry identified.IMPRESSIONNo acute intracranial abnormalitiesAge related involutional changes of the brain parenchyma and chronic small vessel ischemic changes, as detailed above.Radiation dose reduction was achieved through individualized adjustment of kVP and/or mA, through adaptive statistical iterative reconstruction, and/or through automated tube current modulation.Electronically signed by: ALFREDO HIDALGO (Sep 08, 2021 07:27:13)
[2021-09-08] MEDS ORDERED: LOPRESSOR INJ 5 MG AMP IVP ONE (07:31)
[2021-09-08] MEDS ORDERED: NITRO-BID OINT 2% UD (E.R. USE ONLY) ONE (07:34)
[2021-09-08] MEDS ORDERED: ASPIRIN 81 MG CHEWTAB ONE (07:34)
[2021-09-08] MEDS ORDERED: LOPRESSOR INJ 5 MG AMP ONE (07:36)
[2021-09-08] MEDS ORDERED: ASPIRIN 81 MG CHEWTAB PO ONE (07:39)
[2021-09-08 08:09] LABS: CKMB % 3.6 % (<4); CREATINE KINASE MB 1.3 ng/mL (0-4.0)
[2021-09-08] MEDS ORDERED: COMPAZINE INJ IM ONE (08:43)
[2021-09-08] MEDS ORDERED: COMPAZINE INJ ONE (08:44)
[2021-09-08] MEDS ORDERED: COMPAZINE INJ IVP ONE (08:54)
[2021-09-08] MEDS ORDERED: ASPIRIN PO SCH (09:00)
[2021-09-08] MEDS ORDERED: GLUCOPHAGE PO SCH (09:46)
[2021-09-08] MEDS ORDERED: PRASTERONE 25 MG PO SCH (09:46)
[2021-09-08] MEDS ORDERED: ESCITALOPRAM OXALATE 20 MG PO SCH (09:46)
[2021-09-08] MEDS ORDERED: CHOLECALCIFEROL 400 UNIT PO SCH (09:46)
[2021-09-08] MEDS ORDERED: PATIENT'S HOME MEDICATION (Iron-Folic Acid-Mv, Min Cmb#15 [Hemocyte-Plus] 106 mg iron- 1 m PO SCH (09:46)
[2021-09-08] MEDS ORDERED: LOPRESSOR TAB 50 MG PO SCH (09:46)
[2021-09-08] MEDS ORDERED: NovoLIN R (or HumuLIN R) SC PRN (09:46)
[2021-09-08] MEDS ORDERED: EXELON PO SCH (09:46)
[2021-09-08] MEDS ORDERED: ADVIL TAB 200 MG PO PRN (09:46)
[2021-09-08] MEDS ORDERED: ULTRAM PO PRN (09:46)
[2021-09-08] MEDS ORDERED: APRESOLINE INJ 20 MG VIAL IVP PRN (10:15)
[2021-09-08 10:20] VITALS: BMI 22.4
[2021-09-08] MEDS ORDERED: GLUCOPHAGE ONE (11:01)
[2021-09-08] MEDS ORDERED: ATIVAN TAB 1 MG PO ONE (11:32)
--- NOTE | 2021-09-08 11:37 | DR.H&P ---
H&P History & Physical for Day of: H&P Date: 09/08/21 Chief Complaint Chief Complaint: Chest pain Altered mental status Allergies Allergies Allergy/AdvReac Type Severity Reaction Status Date / Time codeine Allergy Verified 07/10/21 17:07 haloperidol [From Haldol] Allergy Verified 07/10/21 17:07 lactose Allergy Verified 07/10/21 17:07 promethazine [From Phenergan] Allergy Verified 07/10/21 17:07 shellfish derived Allergy Verified 07/10/21 17:07 History of Present Illness History of Present Illness: Pt is a 76 year old male past medical history of Lewy Body Dementia, Parkinson's Disease, Hypertension, DMT2, presenting with altered mental status and chest pain that per his started this morning. Pt was then taken to ER via EMS and was noted to have accelerated hypertension and few brief episodes of non-sustained ventricular tachycardia. Labs/imaging: Wbc 5.5, Hgb 12.8, Plt 110, Na 140, K 3.8, Creatinine 0.91, Glucose 132, Ekg atrial flutter, Troponin negative, UA not c/w infection. CT head: no acute intracranial abnormality. Pt was admitted for chest pain rule out and altered mental status. Due to dementia, difficult to determine baseline mentation. Per pt appears more agitated than usual, will give ativan 1mg x [address] on telemetry, trend cardiac enzymes and restart home medications. IV hydralazine prn for hypertension. CXR does not appear to be have been performed, will order. Magnesium pending. Will continue to monitor and follow up labs/imaging. Past Medical History Past Medical History: Coronary Artery Disease, Dementia, Depression, Diabetes, Dyslipidemia, Hypertension, Kidney Stones and Sleep Apnea Additional Medical History: Urinary Retention, Vision Deficit, Subdural Hematoma, [place], Sleep Apnea, Esophageal Disorders, UTI's, BPH, Muscle Weakness Past Surgical History Surgical History: Angioplasty/Stents, Cholecystectomy, Ortho Surgery, Lithotripsy and Other Additional Surgical History: Vasectomy, Cardiac Stents x2, Right Ulnar Relocation, Esphageal Dilation Family History Family Medical History: Diabetes Mellitus, Cancer, [place], Coronary Artery Disease, Heart Failure and Hypertension Social History Does patient currently use any type of tobacco product: No Have you used tobacco products in the last 12 months: No Type of Tobacco Use: None Does any household member use tobacco: No Alcohol Use: None Drug Use: None Medications Home Medications: codeine Allergy (Verified 07/10/21 17:07) haloperidol [From Haldol] Allergy (Verified 07/10/21 17:07) lactose Allergy (Verified 07/10/21 17:07) promethazine [From Phenergan] Allergy (Verified 07/10/21 17:07) shellfish derived Allergy (Verified 07/10/21 17:07) CONTINUE taking the following medications doxazosin 2 mg PO HS 09/08/21 [History] ibuprofen 200 mg PO PRN PRN 09/08/21 [History] niacin [Slo-Niacin] 500 mg PO BID 09/08/21 [History] Labs Result Diagrams: 09/08/21 06:44 09/08/21 06:44 Labs: Laboratory WBC 5.5 X10^3/uL (3.6-10.0) 09/08/21 06:44 RBC 4.35 X10^6/uL (4.7-6.0) L 09/08/21 06:44 Hgb 12.8 g/dL (13.5-18.0) L 09/08/21 06:44 Hct 37.8 % (42.0-54.0) L 09/08/21 06:44 MCV 86.9 fL (80.0-100.0) 09/08/21 06:44 MCH 29.5 pg (27.0-34.0) 09/08/21 06:44 MCHC 34.0 g/dL (33.0-35.0) 09/08/21 06:44 RDW 14.7 % (11.6-16.5) 09/08/21 06:44 Plt Count 110 X10^3/uL (150.0-450.0) L 09/08/21 06:44 MPV 8.0 fL (7.4-11.0) 09/08/21 06:44 Neut % (Auto) 63.6 % (42.0-75.0) 09/08/21 06:44 Lymph % (Auto) 23.5 % (21.0-51.0) 09/08/21 06:44 [place] % (Auto) 9.2 % (0.0-13.0) 09/08/21 06:44 Eos % (Auto) 3.3 % (0.9-2.9) H 09/08/21 06:44 Baso % (Auto) 0.4 % (0.2-1.0) 09/08/21 06:44 Neut # (Auto) 3.5 x10^3/uL (2.2-4.8) 09/08/21 06:44 Lymph # (Auto) 1.3 X10^3/uL (1.3-2.9) 09/08/21 06:44 [place] # (Auto) 0.5 x10^3/uL (0.3-0.8) 09/08/21 06:44 Eos # (Auto) 0.2 x10^3/uL (0.0-0.2) 09/08/21 06:44 Baso # (Auto) 0.0 X10^3/uL (0.0-0.1) 09/08/21 06:44 Absolute Nucleated RBC 0.0 /100WBC 09/08/21 06:44 Sodium 140 mmol/L (136-145) 09/08/21 06:44 Corrected Sodium 141 mmol/L (136-145) 09/08/21 06:44 Potassium 3.8 mmol/L (3.5-5.1) 09/08/21 06:44 Chloride 103 mmol/L (98-107) 09/08/21 06:44 Carbon Dioxide 26.9 mmol/L (21-32) 09/08/21 06:44 BUN 18 mg/dL (7-18) 09/08/21 06:44 Creatinine 0.91 mg/dL (0.70-1.30) 09/08/21 06:44 Est GFR (MDRD) Af Amer > 60 (>60) 09/08/21 06:44 Est GFR (MDRD) Non-Af > 60 (>60) 09/08/21 06:44 Glucose 132 mg/dL (65-99) H 09/08/21 06:44 POC Glucose (mg/dL) 178 mg/dL (65-99) H 09/08/21 11:16 Calcium 9.1 mg/dL (8.5-10.1) 09/08/21 06:44 Corrected Calcium Cancelled 09/08/21 06:44 Total Bilirubin Cancelled 09/08/21 06:44 AST Cancelled 09/08/21 06:44 ALT Cancelled 09/08/21 06:44 Alkaline Phosphatase Cancelled 09/08/21 06:44 Creatine Kinase 36 Units/L (39-308) L 09/08/21 06:44 CK-MB (CK-2) 1.3 ng/mL (0-4.0) 09/08/21 06:44 CK/CKMB % Calc 3.6 % (<4) 09/08/21 06:44 Troponin I High Sens 15.2 ng/L (4.0-60.0) 09/08/21 06:44 Total Protein Cancelled 09/08/21 06:44 Albumin Cancelled 09/08/21 06:44 Globulin Cancelled 09/08/21 06:44 Albumin/Globulin Ratio Cancelled 09/08/21 06:44 TSH 3rd Generation Cancelled 09/08/21 06:41 Specimen Type Clean catch urine 09/08/21 07:12 Urine Color Yellow (YELLOW) 09/08/21 07:12 Urine Appearance Clear (CLEAR) 09/08/21 07:12 Urine pH 8.0 (5.0 - 8.0) 09/08/21 07:12 Ur Specific [place] 1.015 (1.000-1.030) 09/08/21 07:12 Urine Protein 2+ (NEGATIVE) 09/08/21 07:12 Urine Glucose (UA) Negative (NEGATIVE) 09/08/21 07:12 Urine Ketones Negative (NEGATIVE) 09/08/21 07:12 Urine Occult Blood 5+ (NEGATIVE) 09/08/21 07:12 Urine Nitrite Negative (NEGATIVE) 09/08/21 07:12 Urine Bilirubin Negative (NEGATIVE) 09/08/21 07:12 Urine Urobilinogen Normal (NORMAL) 09/08/21 07:12 Ur Leukocyte Esterase Negative (NEGATIVE) 09/08/21 07:12 Urine RBC Tntc /HPF (0-3) A 09/08/21 07:12 Urine WBC 0-2 /HPF (0-5) 09/08/21 07:12 Ur Squamous Epith Cells Negative /HPF (NEGATIVE) 09/08/21 07:12 Urine Bacteria Negative /HPF (NEGATIVE) 09/08/21 07:12 Ur Culture Indicated? No/not indicated 09/08/21 07:12 SARS CoV-2 RNA Rapid JOHNNY Negative (NEGATIVE) 09/08/21 07:41 Review of Systems Constitutional: No Symptoms Reported Eyes: No Symptoms Reported ENT: No Symptoms Reported Respiratory: No Symptoms Reported Cardiovascular: Chest Pain Gastrointestinal: No Symptoms Reported Genitourinary: No Symptoms Reported Musculoskeletal: No Symptoms Reported Skin: No Symptoms Reported Neurological: No Symptoms Reported Physical Exam Vital Signs: Temperature 98.3 F Pulse Rate [Left Radial] 102 Pulse Rate 98 Respiratory Rate 18 Blood Pressure [Left Arm] 197/99 Blood Pressure [Standing] 138/65 Blood Pressure [Sitting] 140/68 Blood Pressure [Lying] 135/73 Blood Pressure 158/91 O2 Sat by Pulse Oximetry 98 Oriented: Not Oriented Eyes: Normal Ear: Normal Nose: Normal Throat: Normal Respiratory: Clear Throughout Cardiovascular: Tachycardia : Normal Auscultation: Bowel Sounds: Normal Palpation: Normal Tenderness: Normal Skin: Normal Musculoskeletal: Normal Psychiatric: Other Affect: Anxious Speech Pattern: Inappropriate Assessment/Plan (1) Chest pain, rule out acute myocardial infarction: Status: Acute Plan: Trend cardiac enzymes Telemetry (2) Hypertension, uncontrolled: Status: Acute (3) Altered mental status: Status: Acute Review H&P Reviewed: Yes Patient was examined?: Yes
[2021-09-08] MEDS ORDERED: BENADRYL INJ 50 MG VIAL IVP PRN (13:14)
[2021-09-08] MEDS ORDERED: LOPRESSOR INJ 5 MG AMP IVP PRN (13:14)
[2021-09-08] MEDS ORDERED: LOPRESSOR INJ 5 MG AMP IVP SCH (14:00)
[2021-09-08] MEDS ORDERED: BENADRYL INJ 50 MG VIAL IVP SCH (14:00)
[2021-09-08] MEDS ORDERED: CARDIZEM INJ 50 MG VIAL IVP ONE (15:29)
[2021-09-08] MEDS ORDERED: GEODON INJ IM ONE ×3 (15:50→15:58)
--- NOTE | 2021-09-08 15:51 | RAD ---
HISTORYCHEST PAINSTUDYCHEST, 1 VIEWCOMPARISONNoneTECHNIQUEChest x-ray portable single frontal viewFINDINGSHeart size and mediastinal contours are normal. Lungs are clear as are the pleural spaces. No free air or pneumothorax. No acute osseous abnormalities are demonstrated. Degenerative changes of the bilateral acromioclavicular and glenohumeral joints are observed.There is minimal scarring or discoid type atelectasis of the medial aspect of the left lung base.IMPRESSIONMinimal scarring or discoid type atelectasis of the medial aspect of the left lung base. Otherwise, no acute radiographic abnormalities of the chest.Electronically signed by: ALFREDO HIDALGO (Sep 08, 2021 15:50:39)
[2021-09-08] MEDS ORDERED: CARDIZEM INJ 50 MG VIAL ONE (16:00)
[2021-09-08] MEDS ORDERED: GEODON INJ IM NR (16:00)
[2021-09-08 16:10] LABS: CKMB % 8.5 % (<4)
[2021-09-08 16:16] LABS: CREATINE KINASE MB 13.7 ng/mL (0-4.0)
[2021-09-08] MEDS ORDERED: HEPARIN SODIUM IN D5W 25,000 UNITS/500 ML BAG IV PRN (16:21)
[2021-09-08 16:44] VITALS: BP 140/77
[2021-09-08] MEDS ORDERED: HEPARIN SODIUM INJ 5000 UNITS IVP ONE (17:18)
[2021-09-08] MEDS ORDERED: ZESTRIL TAB 5 MG PO SCH (21:00)
[2021-09-08] MEDS ORDERED: NIASPAN ER TAB 500 MG PO SCH (21:00)
[2021-09-08] MEDS ORDERED: ZOCOR TAB 40 MG PO SCH (21:00)
[2021-09-08] MEDS ORDERED: COENZYME Q10 100 MG PO SCH (21:00)
[2021-09-08] MEDS ORDERED: CARDURA PO SCH (21:00)
[2021-09-08] MEDS ORDERED: DESYREL PO SCH (21:00)
[2021-09-09] MEDS ORDERED: LEXAPRO PO SCH (09:00)
[2021-09-09] MEDS ORDERED: ASPIRIN 81 MG CHEWTAB PO SCH (09:00)
== END 2021-09-08 19:05 | disposition short-term general hospital (02) ==
LOC: ER 06:18 → MED/SURG 06:18
PROVIDERS: ADMIT Internal Medicine; ATTEND Internal Medicine
DX: G20 Parkinson's disease; I25.10 Atherosclerotic heart disease of native coronary artery without angina pectoris; Z20.822 Contact with and (suspected) exposure to COVID-19; I10 Essential (primary) hypertension; E11.65 Type 2 diabetes mellitus with hyperglycemia; R94.31 Abnormal electrocardiogram [ECG] [EKG]; R07.89 Other chest pain; R41.82 Altered mental status, unspecified

== ENCOUNTER 2021-11-11 17:07 | Inpatient (IN) ==
--- NOTE | 2021-11-11 17:27 | DR.AMS ---
HPI Time Seen Time Seen by Provider: 11/11/21 17:25 HPI Comment HPI Comment: PATIENT IS 76YR OLD MALE IN ER WITH INCREASING LLE PAIN WITH DISCOLORATION SINCE YESTERDAY. Complaint Cheif Complaint Doctors Comments: LEFT LOWER EXTREMITY PAIN. COVID-19 Coronavirus risk:travel/contact w/high risk person: No Has patient experienced Coronavirus symptoms: No Coronavirus symptoms experienced: Fever Reviewed Nurses Notes Reviewed: Yes Source History Provided: Patient PMH PMH Past Medical History: Coronary Artery Disease, Dementia, Depression, Diabetes, Dyslipidemia, Hypertension, Kidney Stones and Sleep Apnea Past Surgical History: Yes Surgical History: Angioplasty/Stents, Cholecystectomy, Ortho Surgery, Lithotripsy and Other Family History Family Medical History: Diabetes Mellitus, Cancer, PA, Coronary Artery Disease, Heart Failure and Hypertension Social History Do you use any recreational Drugs:: No ROS Review of Systems Constitutional: No Symptoms Reported Eyes: No Symptoms Reported ENTM: No Symptoms Reported Respiratoy: No Symptoms Reported Cardiovascular: No Symptoms Reported Gastrointestinal/Abdominal: No Symptoms Reported Genitourinary: No Symptoms Reported Neurological: No Symptoms Reported Musculoskeletal: No Symptoms Reported Integumentary: No Symptoms Reported Hematologic/Lymphatic: No Symptoms Reported Endocrine: No Symptoms Reported Psychiatric: No Symptoms Reported All Other Systems: Reviewed and Negative PE Vitals Vital Signs: Temp Pulse Resp BP BP Pulse Ox 11/11/21 20:31 115 H 26 H 107/64 95 11/11/21 20:30 133 H 21 96 11/11/21 20:25 17 11/11/21 20:15 130 H 21 138/61 97 11/11/21 20:00 142 H 21 136/67 98 11/11/21 19:45 143 H 23 150/70 98 11/11/21 19:30 132 H 20 146/72 98 11/11/21 19:25 16 11/11/21 19:15 133 H 22 148/78 11/11/21 19:12 122 H 20 139/81 11/11/21 19:00 153 H 22 134/77 96 11/11/21 18:50 153 H 23 127/84 96 11/11/21 18:47 154 H 24 129/92 94 L 11/11/21 18:35 151 H 21 136/73 96 11/11/21 18:30 159 H 24 152/86 95 11/11/21 18:28 162 H 23 143/95 95 11/11/21 18:15 160 H 23 95 11/11/21 18:00 157 H 26 H 128/95 95 11/11/21 17:55 157 H 24 95 11/11/21 17:20 98.8 F 101 H 20 188/87 95 09/08/21 16:00 140/77 General Limitations: Language Barrier General Appearance: Alert Head Head Exam: Normal Inspection Eyes Eye exam: Normal Appearance ENT ENT Exam: Normal Exam External Ear Exam: Normal External Inspection Nose Exam: Normal Nose Exam Mouth Exam: Normal Inspection Throat Exam: Normal Inspection Neck Neck Exam: Normal Inspection Chest Chest Inspection: Normal Inspection Respiratory Respiratory Exam: Normal Lung Sounds Bilat Cardiovascular Cardiovascular Exam: Regular Rate and Normal Rhythm Abdominal Exam Abdominal Exam: Normal Inspection, Normal Bowel Sounds and Soft Extremities Extremities Exam: Normal Inspection Back Back Exam: Normal Inspection Neurological Neurological Exam: Alert and Oriented X3 Psychological Psychiatric Exam: Normal Affect and Normal Mood Skin Skin Exam: Warm, Dry, Intact and Normal Color MDM Additional Information Obtained Additional Information Obtained From: Old Records COURSE Treatment Treatment: Labs, EKG, xray and Brain CT Reevaluation 1st: Unchanged Consultation Called: 19:17 Consultation Comments: Spoke with Dr. Sarmiento agrees to admit patient Education/Counseling Education/Counseling: Patient and Family Educated On: Treatment and Diagnosis ROR Labs Reviewed Laboratory Results Reviewed?: Yes Result Diagrams: 11/18/21 05:20 11/18/21 05:20 Laboratory: 11/11/21 19:15 Blood Blood Culture - Final 11/11/21 18:53 Blood Blood Culture - Final WBC 4.9 X10^3/uL (3.6-10.0) 11/11/21 18:53 RBC 4.01 X10^6/uL (4.7-6.0) L 11/11/21 18:53 Hgb 11.6 g/dL (13.5-18.0) L 11/11/21 18:53 Hct 34.3 % (42.0-54.0) L 11/11/21 18:53 MCV 85.5 fL (80.0-100.0) 11/11/21 18:53 MCH 28.8 pg (27.0-34.0) 11/11/21 18:53 MCHC 33.7 g/dL (33.0-35.0) 11/11/21 18:53 RDW 15.2 % (11.6-16.5) 11/11/21 18:53 Plt Count 106 X10^3/uL (150.0-450.0) L 11/11/21 18:53 MPV 8.6 fL (7.4-11.0) 11/11/21 18:53 Neut % (Auto) 85.3 % (42.0-75.0) H 11/11/21 18:53 Lymph % (Auto) 7.7 % (21.0-51.0) L 11/11/21 18:53 [place] % (Auto) 6.4 % (0.0-13.0) 11/11/21 18:53 Eos % (Auto) 0.5 % (0.9-2.9) L 11/11/21 18:53 Baso % (Auto) 0.1 % (0.2-1.0) L 11/11/21 18:53 Neut # (Auto) 4.2 x10^3/uL (2.2-4.8) 11/11/21 18:53 Lymph # (Auto) 0.4 X10^3/uL (1.3-2.9) L 11/11/21 18:53 [place] # (Auto) 0.3 x10^3/uL (0.3-0.8) 11/11/21 18:53 Eos # (Auto) 0.0 x10^3/uL (0.0-0.2) 11/11/21 18:53 Baso # (Auto) 0.0 X10^3/uL (0.0-0.1) 11/11/21 18:53 Absolute Nucleated RBC 0.0 /100WBC 11/11/21 18:53 PT 14.5 SECONDS (11.8-14.3) 11/11/21 18:53 INR Target Range - 11/11/21 18:53 INR 1.17 (0.8-1.3) 11/11/21 18:53 APTT 30.0 SECONDS (22.9-36.5) 11/11/21 18:53 PTT Comment - 11/11/21 18:53 Sodium 141 mmol/L (136-145) 11/11/21 18:53 Corrected Sodium 142 mmol/L (136-145) 11/11/21 18:53 Potassium 3.4 mmol/L (3.5-5.1) L 11/11/21 18:53 Chloride 107 mmol/L (98-107) 11/11/21 18:53 Carbon Dioxide 23.4 mmol/L (21-32) 11/11/21 18:53 BUN 12 mg/dL (7-18) 11/11/21 18:53 Creatinine 0.90 mg/dL (0.70-1.30) 11/11/21 18:53 Est GFR (MDRD) Af Amer > 60 (>60) 11/11/21 18:53 Est GFR (MDRD) Non-Af > 60 (>60) 11/11/21 18:53 Glucose 122 mg/dL (65-99) H 11/11/21 18:53 Lactic Acid 1.2 mmol/L (0.4-2.0) 11/11/21 18:53 Calcium 8.9 mg/dL (8.5-10.1) 11/11/21 18:53 Corrected Calcium 9.5 mg/dL (8.5-10.1) 11/11/21 18:53 Magnesium 1.3 mg/dL (1.7-2.9) L 11/11/21 18:53 Total Bilirubin 1.50 mg/dL (0.2-1.0) H 11/11/21 18:53 AST 12 Units/L (15-37) L 11/11/21 18:53 ALT 12 Units/L (12-78) 11/11/21 18:53 Alkaline Phosphatase 81 Units/L (46-116) 11/11/21 18:53 Creatine Kinase 22 Units/L (39-308) L 11/11/21 18:53 CK-MB (CK-2) < 1.0 ng/mL (0-4.0) 11/11/21 18:53 CK/CKMB % Calc 4.6 % (<4) 11/11/21 18:53 Troponin I High Sens 33.5 ng/L (4.0-60.0) 11/11/21 18:53 Total Protein 6.8 g/dL (6.4-8.2) 11/11/21 18:53 Albumin 3.2 g/dL (3.4-5.0) L 11/11/21 18:53 Globulin 3.6 g/dL (2.5-4.5) 11/11/21 18:53 Albumin/Globulin Ratio 0.9 Ratio (1.1-2.1) L 11/11/21 18:53 XRAY XRAY Interpreted by: Radiologist X-ray Results: Name: SHADIA SALINAS : 1945 Sex: M Location: ER Order Number(s): [id number] Procedure(s):BRAIN W/O CON Ordering Physician: LARRY BIRMINGHAM Primary Care: Jose Roberto Henderson Service Date: 11/11/21 Service Time: 1805 HISTORY EMS STATES PATIENTS STATED PATIENT WASN'T ACTING LIKE HIS NORMAL FOR APPROX 1 HOUR. PATIENT WENT TO PCP AND HAD A URINE DONE TODAY WHICH WAS NEGATIVE. Altered mental status for 1 hour. Witnessed by the . STUDY BRAIN W/O CON COMPARISON Head CT 09/08/[address] axial images of the head were obtained without IV contrast. Coronal and sagittal images were reconstructed. Dose reduction techniques included Automated Exposure Control (AEC) and adjustment of mA and kV. FINDINGS Age-related findings include central and cortical atrophy with areas of low density in the periventricular white matter compatible with micro-ischemic changes. 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 Cerebellar tonsils are at an appropriate level. No fluid in the sinuses or mucosal thickening to suggest sinusitis. There is no mastoid effusion. IMPRESSION 1. No acute finding Electronically signed by: Samy Santiago (Nov 11, 2021 19:06:09) Report Electronically signed: 11/11/211905 CC: Larry Birmingham Name: SHADIA SALINAS : 1945 Sex: M Location: ER Order Number(s): [id number] Procedure(s):CHEST, 1 VIEW Ordering Physician: LARRY BIRMINGHAM Primary Care: Jose Roberto Henderson Service Date: 11/11/21 Service Time: 1805 HISTORY EMS STATES PATIENTS STATED PATIENT WASN'T ACTING LIKE HIS NORMAL FOR APPROX 1 HOUR. PATIENT WENT TO PCP AND HAD A URINE DONE TODAY WHICH WAS NEGATIVE. Relevant Clinical Information STUDY CHEST, 1 VIEW COMPARISON Chest x-ray dated September 08, 2021. FINDINGS The trachea is midline. The cardiac silhouette is unremarkable. Chronic emphysematous and interstitial lung changes. Patchy bibasilar airspace disease. No significant pleural effusion or pneumothorax. The bony thorax is unremarkable. IMPRESSION Patchy bibasilar airspace disease. Recommend clinical/laboratory correlation and following to resolution. Electronically signed by: AMBER KING (Nov 11, 2021 19:28:31) Report Electronically signed: 11/11/211927 CC: Larry Birmingham EKG Rate: 161 Rhythm: Afib (RVR) Opioid Opioid Risk Tool Age (Jorge box if 16-45): No History of Preadolescent Sexual Abuse: No Total: 0 Total Score Risk Category: Low Risk Copyright: Acharya predicting aberrant behaviors Instructions Instructions: Fall Prevention in the Home, Adult, Cadq-wd-Uttg Type 2 Diabetes Mellitus, Self-Care, Adult, Oont-uv-Erbn Weakness, Qfny-ya-Cmhg Hypertension, Adult, Ivez-cf-Oikz Atrial Fibrillation, Extp-ep-Ijmb Community-Acquired Pneumonia, Adult, Rfes-ug-Pzlf Forms: Precautions for COVID19 [facility] Social Distancing ADDITIONAL NOTES Additional Notes Additional Notes: Pt admitted to hospital with medications started for tx of A FIB with RVR and Pneumonia
[2021-11-11 17:36] VITALS: BMI 22.4
[2021-11-11] MEDS ORDERED: CARDIZEM INJ 50 MG VIAL IVP ONE ×4 (18:10→19:17)
[2021-11-11] MEDS ORDERED: CARDIZEM INJ 50 MG VIAL ONE (18:21)
[2021-11-11] MEDS ORDERED: NS 100 ML IV 100 ML ONE ×2 (18:21→20:51)
[2021-11-11] MEDS ORDERED: CARDIZEM INJ 125 MG VIAL ONE (18:22)
[2021-11-11] MEDS: CARDIZEM INJ 125 MG VIAL 125 MG in NS 100 ML IV 100 ML IV PRN (18:34)
--- NOTE | 2021-11-11 19:06 | CT ---
HISTORYEMS STATES PATIENTS STATED PATIENT WASN'T ACTING LIKE HIS NORMAL FOR APPROX 1 HOUR. PATIENT WENT TO PCP AND HAD A URINE DONE TODAY WHICH WAS NEGATIVE. Altered mental status for 1 hour. Witnessed by the .STUDYBRAIN W/O CONCOMPARISONHead CT 09/08/2021TECHNIQUEMultiple CT axial images of the head were obtained without IV contrast. Coronal and sagittal images were reconstructed. Dose reduction techniques included Automated Exposure Control (AEC) and adjustment of mA and kV.FINDINGSAge-related findings include central and cortical atrophy with areas of low density in the periventricular white matter compatible with micro-ischemic changes. 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 Cerebellar tonsils are at an appropriate level. No fluid in the sinuses or mucosal thickening to suggest sinusitis. There is no mastoid effusion.IMPRESSION1. No acute findingElectronically signed by: Samy Santiago (Nov 11, 2021 19:06:09)
[2021-11-11 19:23] LABS: BASOPHILS % (AUTO) 0.1 % (0.2-1.0); EOSINOPHILS % (AUTO) 0.5 % (0.9-2.9); HEMATOCRIT 34.3 % (42.0-54.0); HEMOGLOBIN 11.6 g/dL (13.5-18.0); LYMPHOCYTES # (AUTO) 0.4 X10^3/uL (1.3-2.9); LYMPHOCYTES % (AUTO) 7.7 % (21.0-51.0); MEAN CORPUSCULAR HEMOGLOBIN 28.8 pg (27.0-34.0); MEAN CORPUSCULAR HGB CONC 33.7 g/dL (33.0-35.0); MEAN CORPUSCULAR VOLUME 85.5 fL (80.0-100.0); MEAN PLATELET VOLUME 8.6 fL (7.4-11.0); MONOCYTES # (AUTO) 0.3 x10^3/uL (0.3-0.8); MONOCYTES % (AUTO) 6.4 % (0.0-13.0); NEUTROPHILS # (AUTO) 4.2 x10^3/uL (2.2-4.8); NEUTROPHILS % (AUTO) 85.3 % (42.0-75.0); RED BLOOD COUNT 4.01 X10^6/uL (4.7-6.0); RED CELL DISTRIBUTION WIDTH 15.2 % (11.6-16.5); WHITE BLOOD COUNT 4.9 X10^3/uL (3.6-10.0)
[2021-11-11] MEDS ORDERED: TYLENOL 325 MG TAB PO ONE ×2 (19:25→19:31)
--- NOTE | 2021-11-11 19:28 | RAD ---
HISTORYEMS STATES PATIENTS STATED PATIENT WASN'T ACTING LIKE HIS NORMAL FOR APPROX 1 HOUR. PATIENT WENT TO PCP AND HAD A URINE DONE TODAY WHICH WAS NEGATIVE. Relevant Clinical InformationSTUDYCHEST, 1 VIEWCOMPARISONChest x-ray dated September 08, 2021.FINDINGSThe trachea is midline. The cardiac silhouette is unremarkable. Chronic emphysematous and interstitial lung changes. Patchy bibasilar airspace disease. No significant pleural effusion or pneumothorax. The bony thorax is unremarkable.IMPRESSIONPatchy bibasilar airspace disease. Recommend clinical/laboratory correlation and following to resolution.Electronically signed by: AMBER KING (Nov 11, 2021 19:28:31)
[2021-11-11 19:36] LABS: LACTIC ACID 1.2 mmol/L (0.4-2.0)
[2021-11-11 19:44] LABS: ALANINE AMINOTRANSFERASE 12 Units/L (12-78); ALBUMIN 3.2 g/dL (3.4-5.0); ALKALINE PHOSPHATASE 81 Units/L (46-116); ASPARTATE AMINO TRANSFERASE 12 Units/L (15-37); BLOOD UREA NITROGEN 12 mg/dL (7-18); CALCIUM 8.9 mg/dL (8.5-10.1); CARBON DIOXIDE 23.4 mmol/L (21-32); CHLORIDE 107 mmol/L (98-107); CKMB % 4.6 % (<4); COR CA(FOR HYPOALB) 9.5 mg/dL (8.5-10.1); COR NA(FOR HYPERGLY) 142 mmol/L (136-145); CREATINE KINASE 22 Units/L (39-308); CREATINE KINASE MB < 1.0 ng/mL (0-4.0); MAGNESIUM 1.3 mg/dL (1.7-2.9); SODIUM 141 mmol/L (136-145); TOTAL PROTEIN 6.8 g/dL (6.4-8.2); eGFR NON BLACK RACES > 60 (>60)
[2021-11-11] MEDS ORDERED: ZOSYN VIAL 3.375 GRAMS 3.375 G in NS 100 ML IV 100 ML IV SCH (20:43)
[2021-11-11] MEDS ORDERED: ZOSYN VIAL 3.375 GRAMS IV ONE (20:51)
[2021-11-11] MEDS ORDERED: NS 1,000 ML IV 1,000 ML ONE (20:51)
[2021-11-11] MEDS: NS 1,000 ML IV 1,000 ML IV SCH (21:02)
[2021-11-11] MEDS ORDERED: LEVAQUIN PREMIX IV 500 MG 500 MG/100 ML BAG IV ONE (21:07)
[2021-11-11] MEDS ORDERED: ZOSYN VIAL 3.375 GRAMS 3.375 G in NS 100 ML IV 100 ML IV ONE (21:24)
[2021-11-11] MEDS ORDERED: LEVAQUIN PREMIX IV 500 MG 500 MG/100 ML BAG IV SCH (22:00)
[2021-11-11] MEDS ORDERED: MICRO K EXTEN CAP 10 MEQ PO PRN (23:05)
[2021-11-11] MEDS ORDERED: POTASSIUM CHL 40 MEQ/NS 0.45% 500 ML IV PRN (23:05)
[2021-11-11] MEDS ORDERED: K-RIDER 10 MEQ/NS 100 ML 10 MEQ/100 ML BAG IV PRN (23:05)
[2021-11-11] MEDS ORDERED: POTASSIUM CHL 60 MEQ/NS 0.45% 500 ML IV PRN (23:05)
[2021-11-11] MEDS ORDERED: POTASSIUM CHLORIDE LIQ 20 MEQ UDC PO PRN (23:05)
[2021-11-11] MEDS ORDERED: KLOR-CON PO PRN (23:05)
[2021-11-11] MEDS: MAGNESIUM SULFATE 1 GRAM/100 mL PREMIX 1 G/100 ML BAG IV PRN (23:28)
[2021-11-11] MEDS: K-DUR TAB 20 MEQ PO PRN (23:28)
[2021-11-11 23:53] LABS: CKMB % 1.5 % (<4); CREATINE KINASE 66 Units/L (39-308); CREATINE KINASE MB < 1.0 ng/mL (0-4.0)
[2021-11-12] MEDS: MAGNESIUM SULFATE 1 GRAM/100 mL PREMIX 1 G/100 ML BAG IV PRN ×3 (00:30→03:54)
[2021-11-12 05:10] LABS: HEMOGLOBIN 10.5 g/dL (13.5-18.0); WHITE BLOOD COUNT 7.3 X10^3/uL (3.6-10.0)
[2021-11-12 05:14] LABS: BASOPHILS % (AUTO) 0.2 % (0.2-1.0); EOSINOPHILS # (AUTO) 0.1 x10^3/uL (0.0-0.2); EOSINOPHILS % (AUTO) 1.1 % (0.9-2.9); HEMATOCRIT 30.5 % (42.0-54.0); LYMPHOCYTES # (AUTO) 0.8 X10^3/uL (1.3-2.9); LYMPHOCYTES % (AUTO) 10.5 % (21.0-51.0); MEAN CORPUSCULAR HEMOGLOBIN 29.3 pg (27.0-34.0); MEAN CORPUSCULAR HGB CONC 34.4 g/dL (33.0-35.0); MEAN PLATELET VOLUME 8.6 fL (7.4-11.0); MONOCYTES # (AUTO) 0.6 x10^3/uL (0.3-0.8); MONOCYTES % (AUTO) 8.2 % (0.0-13.0); NEUTROPHILS # (AUTO) 5.8 x10^3/uL (2.2-4.8); RED BLOOD COUNT 3.58 X10^6/uL (4.7-6.0)
[2021-11-12 05:33] LABS: ALANINE AMINOTRANSFERASE 9 Units/L (12-78); ALBUMIN 2.6 g/dL (3.4-5.0); ALKALINE PHOSPHATASE 69 Units/L (46-116); ASPARTATE AMINO TRANSFERASE 10 Units/L (15-37); BLOOD UREA NITROGEN 12 mg/dL (7-18); CALCIUM 8.6 mg/dL (8.5-10.1); CARBON DIOXIDE 24.7 mmol/L (21-32); CHLORIDE 107 mmol/L (98-107); CKMB % 4.1 % (<4); COR CA(FOR HYPOALB) 9.7 mg/dL (8.5-10.1); CREATINE KINASE 27 Units/L (39-308); CREATINE KINASE MB 1.1 ng/mL (0-4.0); CREATININE 0.89 mg/dL (0.70-1.30); MAGNESIUM 2.2 mg/dL (1.7-2.9); SODIUM 140 mmol/L (136-145); TOTAL PROTEIN 5.8 g/dL (6.4-8.2); eGFR NON BLACK RACES > 60 (>60)
[2021-11-12] MEDS: CARDIZEM INJ 125 MG VIAL 125 MG in NS 100 ML IV 100 ML IV PRN (08:00)
[2021-11-12 09:21] LABS: CKMB % 4.8 % (<4); CREATINE KINASE MB 1.2 ng/mL (0-4.0)
[2021-11-12] MEDS ORDERED: PRASTERONE 25 MG PO SCH (09:45)
[2021-11-12] MEDS: VITAMIN B-12 PO SCH (11:41)
[2021-11-12] MEDS: LOPRESSOR TAB 25 MG PO SCH ×2 (11:41→20:16)
[2021-11-12] MEDS: WELCHOL PO SCH ×2 (11:41→20:15)
[2021-11-12] MEDS: ECOTRIN TAB 325 MG PO SCH (11:41)
[2021-11-12] MEDS: ULTRAM PO PRN (11:41)
[2021-11-12] MEDS: EXELON PO SCH ×2 (11:42→20:14)
[2021-11-12] MEDS: LOVENOX INJ 40 MG SYR SC SCH (11:42)
[2021-11-12 11:51] LABS: BILIRUBIN,URINE NEGATIVE (NEGATIVE); BLOOD/HEMOGLOBIN,URINE 1+ (NEGATIVE); GLUCOSE, URINE NEGATIVE (NEGATIVE); KETONES,URINE NEGATIVE (NEGATIVE); LEUKOCYTE ESTERASE ,URINE NEGATIVE (NEGATIVE); NITRITES,URINE NEGATIVE (NEGATIVE); PROTEIN,URINE 1+ (NEGATIVE); UROBILINOGEN,URINE NORMAL (NORMAL)
[2021-11-12 11:56] LABS: APPEARANCE,URINE CLEAR (CLEAR); COLOR,URINE YELLOW (YELLOW)
[2021-11-12 11:57] LABS: BACTERIA,URINE NEGATIVE /HPF (NEGATIVE); RBC,URINE 0-2 /HPF (0-3); SQUAMOUS EPITHELIAL CELL,UR NEGATIVE /HPF (NEGATIVE)
[2021-11-12 13:31] LABS: CKMB % 4.4 % (<4); CREATINE KINASE 23 Units/L (39-308); CREATINE KINASE MB < 1.0 ng/mL (0-4.0)
[2021-11-12] MEDS: NS 1,000 ML IV 1,000 ML IV SCH ×2 (15:40→22:36)
--- NOTE | 2021-11-12 17:58 | DR.H&P ---
H&P - History & Physical for Day of: H&P Date: 11/11/21 - Chief Complaint Chief Complaint: LEFT LEG PAIN, COUGH, SOB, WEAKNESS - History of Present Illness History of Present Illness: IS A 76 YEAR OLD PATIENT OF OURS. HE PRESENTED TO THE ER WITH COMPLAINTS OF LEFT LOWER EXTREMITY PAIN AND SHORTNESS OF BREATH X 1 DAY. HIS SPOUSE REPORTS THAT HE HAS HAD FEVER, AND COUGH X 2 DAYS. HE HAS TAKEN TYLENOL AND MOTRIN AT HOME. THIS HAS HELPED WITH FEVER, BUT HE CONTINUES WITH LEG PAIN AND SHORTNESS OF BREATH. HE DESCRIBED PAIN CONSTANT, DULL, AND RATED IT A 5/10 ON ARRIVAL. SPOUSE REPORTS THAT PATIENT ALSO HAS ALTERED MENTAL STATUS, ONSET APPROXIMATELY 1 HOUR PRIOR. EXAMINATION REVEALED TENDERNESS TO THE LEFT LOWER LEG. NO REDNESS OR EDEMA NOTED. AUSCULTATION OF HEART REVEALED ATRIAL FIBRILLATION WITH RAPID HEART RATE. AUSCULTATION OF LUNG LLOYD REVEALED RHONCHI THROUGHOUT, DIMINISHED. HE WAS ORIENTED AND ABLE TO FOLLOW COMMANDS APPROPRIATELY. PMH INCLUDES CAD, HTN, SLEEP APNEA, KIDNEY STONES, DM TYPE I, DEPRESSION, CARDIAC STENTS, CHOLECYSTECTOMY, PROSTECTOMY, DRAINAGE OF SUBDURAL HEMATOMA. ON ARRIVAL TO THE ER, VITALS WERE 98.8-157-24-95%-188/87. LABS WERE OBTAINED. WBC 4.9, RBC 4.01, HGB 11.6, HCT 34.3, PLT COUNT 106, D-DIMER 1.59, SODIUM 141, POTASISUM 3.4, BUN 12, CREATININE 0.90, GLUCOSE 122, LACTIC ACID 1.2, MAGNESIUM 1.3, TOTAL BILI 1.50, AST 12, ALT 12, ALK PHOS 81, CREATINE KINASE 22, TOTAL PROTEIN 6.8, ALBUMIN 3.2. CARDIAC ENZYMES WERE WITHIN NORMAL LIMITS. URINALYSIS OBTAINED AND REVEALED: WBC NONE, RBC 0-2, BACTERIA NEGATIVE, LEUKOCYTES NEGATIVE. BLOOD CULTURES WERE SET UP. EKG REVEALED: ATRIAL FIBRILLATION WITH RVR. HR 161. A BRAIN CT WITHOUT CONTRAST WAS OBTAINED AND REVEALED NO ACUTE FINDINGS. A CHEST XRAY WAS OBTAINED AND REVEALED: Patchy bibasilar airspace disease. Recommend clinical/laboratory correlation and following to resolution. IN THE ER, HE WAS GIVEN CARDIZEM 5 IV BOLUS X 2 DOSES. HR REMAINED ELEVATED, THEREFORE, HE WAS STARTED ON A CARDIZEM DRIP. HE WAS ALSO GIVEN TYLENOL 650MG PO X 1 AND LEVAQUIN 500MG IV X 1 DOSE. HR DECREASED TO 105 ON THE CARDIZEM DRIP. HE WAS ADMITTED TO THE HOSPITAL INPATIENT STATUS FOR FURTHER EVALUATION AND TREATMENT OF NEW ONSET A-FIB WITH RVR, PNEUMONIA, GENERALIZED WEAKNESS, AND AMS. HE WAS STARTED ON NORMAL SALINE AT KVO, LEVAQUIN 500MG IV DAILY, CARDIZEM IV DRIP, XOPENEX NEB TX TID, LOVENOX 40MG SC DAILY, ECOTRIN 325MG PO DAILY, THE POTASSIUM AND MAGNESIUM PROTOCOLS, AND HIS HOME MEDICATIONS WERE RESUMED. WE WILL OBTAIN A LOWER EXTREMITY VENOUS DOPPLER TO RULE OUT DVT. OTHERWISE, WE PLAN TO FOLLOW UP WITH AM LABS AND CONTINUE TO [facility]. TIME SPENT ON CLINICAL ASSESSMENT, REVIEWING LABS AND IMAGING, DECISION MAKING, AND DOCUMENTATION GREATER THAN 75 MINUTES. - Past Medical History Past Medical History: Coronary Artery Disease, Hypertension, Dyslipidemia, Diabetes, Dementia, Depression, Kidney Stones, Sleep Apnea Additional Medical History: Urinary Retention, Vision Deficit, Subdural Hematoma, MT, Sleep Apnea, Esophageal Disorders, UTI's, BPH, Muscle Weakness - Past Surgical History Surgical History: Angioplasty/Stents, Cholecystectomy, Ortho Surgery Additional Surgical History: Vasectomy, Cardiac Stents x2, Right Ulnar Relocation, Esphageal Dilation - Family History Family Medical History: Diabetes Mellitus, MT, Heart Failure, Hypertension - Social History Does patient currently use any type of tobacco product: No Have you used tobacco products in the last 12 months: No Type of Tobacco Use: None Does any household member use tobacco: No Alcohol Use: None - Medications Home Medications: amoxicillin [From Augmentin] Allergy (Verified 11/11/21 21:01) clavulanic acid [From Augmentin] Allergy (Verified 11/11/21 21:01) codeine Allergy (Verified 07/10/21 17:07) haloperidol [From Haldol] Allergy (Verified 07/10/21 17:07) lactose Allergy (Verified 07/10/21 17:07) promethazine [From Phenergan] Allergy (Verified 07/10/21 17:07) shellfish derived Allergy (Verified 07/10/21 17:07) CONTINUE taking the following medications colesevelam 3.75 g PO DAILY 11/11/21 [History] cyanocobalamin (vitamin B-12) [B-12 DOTS] 500 mcg PO DAILY 11/11/21 [History] - Review of Systems Constitutional: Fever, Weakness Eyes: No Symptoms Reported ENT: No Symptoms Reported Respiratory: Cough, Shortness of Breath Cardiovascular: See HPI, Palpitations Gastrointestinal: No Symptoms Reported Genitourinary: No Symptoms Reported Musculoskeletal: See HPI, Leg Pain (LEFT LEG PAIN AND TENDERNESS ) Skin: No Symptoms Reported Neurological: Weakness, Confusion - Physical Exam Vital Signs: Temperature 97.7 F Pulse Rate [Bilateral Radial] 101 Pulse Rate 60 Respiratory Rate 37 Blood Pressure [Left Arm] 123/57 Blood Pressure 130/62 O2 Sat by Pulse Oximetry 99 Oriented: Person, Place Eyes: Normal Ear: Normal Nose: Normal Throat: Normal Respiratory: Diminished Throughout, Rhonchi Throughout Cardiovascular: Tachycardia, Irregular : Normal Auscultation: Bowel Sounds: Normal Palpation: Normal Tenderness: Normal Skin: Normal Musculoskeletal: Right, Leg, Tender Psychiatric: Normal Mood Description: Calm Affect: Normal Speech Pattern: Clear, Appropriate - Assessment/Plan (1) Atrial fibrillation with RVR Status: Acute Plan: ADMIT, NORMAL SALINE AT KVO, LEVAQUIN 500MG IV DAILY, CARDIZEM IV DRIP, XOPENEX NEB TX TID, LOVENOX 40MG SC DAILY, ECOTRIN 325MG PO DAILY, THE POTASSIUM AND MAGNESIUM PROTOCOLS, AND HIS HOME MEDICATIONS WERE RESUMED. OBTAIN LEFT LEG VENOUS DOPPLER (2) Pneumonia Qualifiers: Pneumonia type: due to unspecified organism Laterality: bilateral Lung location: lower lobe of lung Qualified Code(s): J18.9 - Pneumonia, unspecified organism Status: Acute (3) Shortness of breath Status: Acute (4) Left leg pain Status: Acute (5) Generalized weakness Status: Acute - Allergies Allergies/Adverse Reactions: Allergies Allergy/AdvReac Type Severity Reaction Status Date / Time amoxicillin [From Augmentin] Allergy Verified 11/11/21 21:01 clavulanic acid Allergy Verified 11/11/21 21:01 [From Augmentin] codeine Allergy Verified 07/10/21 17:07 haloperidol [From Haldol] Allergy Verified 07/10/21 17:07 lactose Allergy Verified 07/10/21 17:07 promethazine [From Phenergan] Allergy Verified 07/10/21 17:07 shellfish derived Allergy Verified 07/10/21 17:07
[2021-11-12] MEDS ORDERED: XOPENEX 1.25 MG/3 ML NEBULE NEB ONE (19:39)
[2021-11-12] MEDS: DESYREL PO SCH (20:14)
[2021-11-12] MEDS: CARDURA PO SCH (20:14)
[2021-11-12] MEDS: ZOCOR TAB 40 MG PO SCH (20:15)
[2021-11-12] MEDS: ZESTRIL TAB 5 MG PO SCH (20:15)
[2021-11-12] MEDS: XOPENEX 1.25 MG/3 ML NEBULE NEB SCH (20:43)
[2021-11-12] MEDS ORDERED: COENZYME Q10 100 MG PO SCH (21:00)
[2021-11-12] MEDS: LEVAQUIN PREMIX IV 500 MG 500 MG/100 ML BAG IV SCH (22:36)
[2021-11-13] MEDS: ULTRAM PO PRN ×2 (01:26→22:16)
[2021-11-13 04:01] LABS: BASOPHILS % (AUTO) 0.1 % (0.2-1.0); EOSINOPHILS # (AUTO) 0.1 x10^3/uL (0.0-0.2); EOSINOPHILS % (AUTO) 2.2 % (0.9-2.9); HEMATOCRIT 27.2 % (42.0-54.0); HEMOGLOBIN 9.3 g/dL (13.5-18.0); LYMPHOCYTES # (AUTO) 0.8 X10^3/uL (1.3-2.9); LYMPHOCYTES % (AUTO) 14.4 % (21.0-51.0); MEAN CORPUSCULAR HEMOGLOBIN 29.4 pg (27.0-34.0); MEAN CORPUSCULAR HGB CONC 34.3 g/dL (33.0-35.0); MEAN CORPUSCULAR VOLUME 85.8 fL (80.0-100.0); MEAN PLATELET VOLUME 8.9 fL (7.4-11.0); MONOCYTES # (AUTO) 0.5 x10^3/uL (0.3-0.8); MONOCYTES % (AUTO) 9.7 % (0.0-13.0); NEUTROPHILS # (AUTO) 3.9 x10^3/uL (2.2-4.8); NEUTROPHILS % (AUTO) 73.6 % (42.0-75.0); RED BLOOD COUNT 3.17 X10^6/uL (4.7-6.0); RED CELL DISTRIBUTION WIDTH 15.2 % (11.6-16.5); WHITE BLOOD COUNT 5.3 X10^3/uL (3.6-10.0)
[2021-11-13 04:02] LABS: ALANINE AMINOTRANSFERASE 10 Units/L (12-78); ALBUMIN 2.3 g/dL (3.4-5.0); ALKALINE PHOSPHATASE 65 Units/L (46-116); ASPARTATE AMINO TRANSFERASE 9 Units/L (15-37); BLOOD UREA NITROGEN 10 mg/dL (7-18); CALCIUM 8.4 mg/dL (8.5-10.1); CARBON DIOXIDE 25.2 mmol/L (21-32); CHLORIDE 106 mmol/L (98-107); COR CA(FOR HYPOALB) 9.8 mg/dL (8.5-10.1); COR NA(FOR HYPERGLY) 139 mmol/L (136-145); CREATININE 0.86 mg/dL (0.70-1.30); SODIUM 139 mmol/L (136-145); TOTAL PROTEIN 5.6 g/dL (6.4-8.2); eGFR NON BLACK RACES > 60 (>60)
[2021-11-13] MEDS: K-DUR TAB 20 MEQ PO PRN (05:45)
[2021-11-13] MEDS: XOPENEX 1.25 MG/3 ML NEBULE NEB SCH ×3 (05:55→20:49)
[2021-11-13] MEDS: CARDIZEM INJ 125 MG VIAL 125 MG in NS 100 ML IV 100 ML IV PRN (06:53)
--- NOTE | 2021-11-13 07:18 | RAD ---
HISTORYShortness of breathSTUDYChest AP [id number] heart is upper limits normal in size. No congestive heart failure is noted. The yasmine are normal. The aorta is calcified. The upper lung nair are clear. Increased density in the right lung base is likely due to subsegmental atelectasis. Increased density in the retrocardiac area medially obscuring the medial hemidiaphragm could be due to atelectasis or infiltrate. Findings are unchanged. Bony thorax is unremarkable.IMPRESSIONNo significant change from the prior examinationElectronically signed by: MELECIO SHAW (Nov 13, 2021 07:18:45)
--- NOTE | 2021-11-13 07:24 | VAS ---
HISTORYBIL LEG PAIN, R>L, ELEVATED D-DIMERSTUDYLOWER EXT VENOUS, BILATERALCOMPARISON[None.]TECHNIQUEDoppl er ultrasound of the [bilateral lower] extremity deep venous system.FINDINGSNegative for DVT in the [bilateral lower] extremity deep venous system.IMPRESSION[Negative for DVT in the visualized veins.]Electronically signed by: Rob Servin (Nov 13, 2021 07:24:36)
[2021-11-13] MEDS ORDERED: LEXAPRO ONE (08:51)
[2021-11-13] MEDS: ECOTRIN TAB 325 MG PO SCH (08:52)
[2021-11-13] MEDS: EXELON PO SCH ×2 (08:53→20:46)
[2021-11-13] MEDS: LOPRESSOR TAB 25 MG PO SCH ×2 (08:54→20:46)
[2021-11-13] MEDS: HEMOCYTE-PLUS PO SCH (08:54)
[2021-11-13] MEDS: LEXAPRO PO SCH (08:54)
[2021-11-13] MEDS: WELCHOL PO SCH ×2 (08:55→20:46)
[2021-11-13] MEDS: VITAMIN D3 25 mcg (1,000 UNITS) PO SCH (08:55)
[2021-11-13] MEDS: LOVENOX INJ 40 MG SYR SC SCH (08:56)
[2021-11-13] MEDS: VITAMIN B-12 PO SCH (09:03)
--- NOTE | 2021-11-13 09:37 | PCM.PROG ---
Progress Note - Progress Note for Day of Date of Exam: 11/13/21 - Subjective Subjective: WAS ADMITTED INPATIENT STATUS FOR TREATMENT OF NEW ONSET A-FIB WITH RVR, PNEUMONIA, AND GENERALIZED WEAKNESS. TODAY, HE IS ALERT AND ORIENTED, LYING IN BED ON MORNING ROUNDS. HE CONTINUES WITH COMPLAINTS OF A NON- PRODUCTIVE COUGH, INTERMITTENT SHORTNESS OF BREATH, AND INTERMITTENT LEFT LEG PAIN. HE REMAINS IN THE INTENSIVE CARE UNIT ON A CARDIZEM DRIP. HR HAS BEEN IN THE 70s-80s THIS MORNING AND THROUGHOUT THE NIGHT. ON EXAMINATION, A-FIB NOTED TO AUSCULTATION WITH NORMAL HR. BILATERAL LUNGS NOTED WITH DIMINISHED LUNG SOUNDS THROUGHOUT. ABDOMEN IS ROUND, SOFT, AND NON-TENDER WITH NORMAL BOWEL SOUNDS NOTED IN ALL QUADRANTS. LLE TENDERNESS NOTED. NO UPPER OR LOWER EXTREMITY EDEMA NOTED. HIS VITALS THIS MORNING ARE: 97.7-79-19-94%-129/63. LABS WERE OBTAINED. ABNORMAL LAB VALUES INCLUDE THE FOLLOWING: RBC 3.17, HGB 9.3, HCT 27.2, GLUCOSE 118, CALCIUM 8.4, AST 9, ALT 10, TOTAL PROTEIN 5.6, ALBUMIN 2.3. TROPONIN HAS DECREASED TO 220.9. NO CHANGES NOTED TO EKGs. I FEEL THAT INCREASED TROPONIN IS DUE TO A-FIB, BUT WE WILL CONSULT WITH , [employer] TODAY. A CHEST XRAY WAS OBTAINED TODAY AND REVEALED: The heart is upper limits normal in size. No congestive heart failure is noted. The yasmine are normal. The aorta is calcified. The upper lung nair are clear. Increased density in the right lung base is likely due to subsegmental atelectasis. Increased density in the retrocardiac area medially obscuring the medial hemidiaphragm could be due to atelectasis or infiltrate. Findings are unchanged. Bony thorax is unremarkable. WE OBTAINED A LLE VENOUS DOPPLER YESTERDAY. IT WAS NEGATIVE FOR DVT. HE IS CURRENTLY RECEIVING NORMAL SALINE AT KVO, LEVAQUIN 500MG IV DAILY, CARDIZEM IV DRIP, XOPENEX NEB TX TID, LOVENOX 40MG SC DAILY, ECOTRIN 325MG PO DAILY, THE POTASSIUM AND MAGNESIUM PROTOCOLS, AND HIS HOME MEDICATIONS WERE RESUMED. WE WILL DISCONTINUE THE CARDIZEM DRIP AND START CARDIZEM CD 120MG PO DAILY. OTHERWISE, WE PLAN TO FOLLOW UP WITH AM LABS AND CHEST XRAY AND CONTINUE TO MONITOR. TIME SPENT ON CLINICAL ASSESSMENT, REVIEWING LABS AND IMAGING, DECISION MAKING, AND DOCUMENTATION GREATER THAN 45 MINUTES. - Past Medical Family Social History Past Med/Fam/Surg Hx: No changes since H&P Allergies: Allergies amoxicillin [From Augmentin] Allergy (Verified 11/11/21 21:01) clavulanic acid [From Augmentin] Allergy (Verified 11/11/21 21:01) codeine Allergy (Verified 07/10/21 17:07) haloperidol [From Haldol] Allergy (Verified 07/10/21 17:07) lactose Allergy (Verified 07/10/21 17:07) promethazine [From Phenergan] Allergy (Verified 07/10/21 17:07) shellfish derived Allergy (Verified 07/10/21 17:07) - Review of Systems ROS: No change since H&P - Vital Signs and I&O's Vital Signs: Temperature 97.7 F Pulse Rate [Bilateral Radial] 101 Pulse Rate 75 Respiratory Rate 22 Blood Pressure [Left Arm] 123/57 Blood Pressure 123/57 O2 Sat by Pulse Oximetry 97 Intake and Output: Intake & Output 11/10/21 11/11/21 11/12/21 11/13/21 11:59 11:59 11:59 11:59 Intake Total 1112 / 1112 1754 / 1754 Balance 1112 / 1112 1754 / 1754 - Physical Exam Oriented: Person, Place Eyes: Normal Ear: Normal Nose: Normal Throat: Normal Respiratory: Generalized, Diminished Cardiovascular: Tachycardia, Irregular : Normal Auscultation: Bowel Sounds: Normal Palpation: Normal Tenderness: Normal Skin: Normal Musculoskeletal: Right, Leg, Tender Psychiatric: Normal Mood Description: Calm Affect: Normal Speech Pattern: Clear, Appropriate - Laboratory and Diagnostics Result Diagrams: 11/13/21 03:05 11/13/21 03:05 Labs: Laboratory WBC 5.3 X10^3/uL (3.6-10.0) 11/13/21 03:05 RBC 3.17 X10^6/uL (4.7-6.0) L 11/13/21 03:05 Hgb 9.3 g/dL (13.5-18.0) L 11/13/21 03:05 Hct 27.2 % (42.0-54.0) L 11/13/21 03:05 MCV 85.8 fL (80.0-100.0) 11/13/21 03:05 MCH 29.4 pg (27.0-34.0) 11/13/21 03:05 MCHC 34.3 g/dL (33.0-35.0) 11/13/21 03:05 RDW 15.2 % (11.6-16.5) 11/13/21 03:05 Plt Count 106 X10^3/uL (150.0-450.0) L 11/13/21 03:05 MPV 8.9 fL (7.4-11.0) 11/13/21 03:05 Neut % (Auto) 73.6 % (42.0-75.0) 11/13/21 03:05 Lymph % (Auto) 14.4 % (21.0-51.0) L 11/13/21 03:05 [place] % (Auto) 9.7 % (0.0-13.0) 11/13/21 03:05 Eos % (Auto) 2.2 % (0.9-2.9) 11/13/21 03:05 Baso % (Auto) 0.1 % (0.2-1.0) L 11/13/21 03:05 Neut # (Auto) 3.9 x10^3/uL (2.2-4.8) 11/13/21 03:05 Lymph # (Auto) 0.8 X10^3/uL (1.3-2.9) L 11/13/21 03:05 [place] # (Auto) 0.5 x10^3/uL (0.3-0.8) 11/13/21 03:05 Eos # (Auto) 0.1 x10^3/uL (0.0-0.2) 11/13/21 03:05 Baso # (Auto) 0.0 X10^3/uL (0.0-0.1) 11/13/21 03:05 Absolute Nucleated RBC 0.0 /100WBC 11/13/21 03:05 PT 14.5 SECONDS (11.8-14.3) 11/11/21 18:53 INR Target Range - 11/11/21 18:53 INR 1.17 (0.8-1.3) 11/11/21 18:53 APTT 30.0 SECONDS (22.9-36.5) 11/11/21 18:53 PTT Comment - 11/11/21 18:53 D-Dimer 1.59 ug/ml (0.0-0.57) H* 11/12/21 04:40 Sodium 139 mmol/L (136-145) 11/13/21 03:05 Corrected Sodium 139 mmol/L (136-145) 11/13/21 03:05 Potassium 3.7 mmol/L (3.5-5.1) 11/13/21 03:05 Chloride 106 mmol/L (98-107) 11/13/21 03:05 Carbon Dioxide 25.2 mmol/L (21-32) 11/13/21 03:05 BUN 10 mg/dL (7-18) 11/13/21 03:05 Creatinine 0.86 mg/dL (0.70-1.30) 11/13/21 03:05 Est GFR (MDRD) Af Amer > 60 (>60) 11/13/21 03:05 Est GFR (MDRD) Non-Af > 60 (>60) 11/13/21 03:05 Glucose 118 mg/dL (65-99) H 11/13/21 03:05 Lactic Acid 1.2 mmol/L (0.4-2.0) 11/11/21 18:53 Calcium 8.4 mg/dL (8.5-10.1) L 11/13/21 03:05 Corrected Calcium 9.8 mg/dL (8.5-10.1) 11/13/21 03:05 Magnesium 2.2 mg/dL (1.7-2.9) 11/12/21 04:40 Total Bilirubin 1.00 mg/dL (0.2-1.0) 11/13/21 03:05 AST 9 Units/L (15-37) L 11/13/21 03:05 ALT 10 Units/L (12-78) L 11/13/21 03:05 Alkaline Phosphatase 65 Units/L (46-116) 11/13/21 03:05 Creatine Kinase 23 Units/L (39-308) L 11/12/21 12:53 CK-MB (CK-2) < 1.0 ng/mL (0-4.0) 11/12/21 12:53 CK/CKMB % Calc 4.4 % (<4) 11/12/21 12:53 Troponin I High Sens 220.9 ng/L (4.0-60.0) H* 11/12/21 12:53 Total Protein 5.6 g/dL (6.4-8.2) L 11/13/21 03:05 Albumin 2.3 g/dL (3.4-5.0) L 11/13/21 03:05 Globulin 3.3 g/dL (2.5-4.5) 11/13/21 03:05 Albumin/Globulin Ratio 0.7 Ratio (1.1-2.1) L 11/13/21 03:05 Specimen Type Clean catch urine 11/12/21 11:10 Urine Color Yellow (YELLOW) 11/12/21 11:10 Urine Appearance Clear (CLEAR) 11/12/21 11:10 Urine pH 6.0 (5.0 - 8.0) 11/12/21 11:10 Ur Specific [place] 1.020 (1.000-1.030) 11/12/21 11:10 Urine Protein 1+ (NEGATIVE) 11/12/21 11:10 Urine Glucose (UA) Negative (NEGATIVE) 11/12/21 11:10 Urine Ketones Negative (NEGATIVE) 11/12/21 11:10 Urine Blood 1+ (NEGATIVE) 11/12/21 11:10 Urine Nitrite Negative (NEGATIVE) 11/12/21 11:10 Urine Bilirubin Negative (NEGATIVE) 11/12/21 11:10 Urine Urobilinogen Normal (NORMAL) 11/12/21 11:10 Ur Leukocyte Esterase Negative (NEGATIVE) 11/12/21 11:10 Urine RBC 0-2 /HPF (0-3) 11/12/21 11:10 Urine WBC None seen /HPF (0-5) 11/12/21 11:10 Ur Squamous Epith Cells Negative /HPF (NEGATIVE) 11/12/21 11:10 Amorphous Sediment Trace /HPF (NEGATIVE) 11/12/21 11:10 Urine Bacteria Negative /HPF (NEGATIVE) 11/12/21 11:10 Ur Culture Indicated? No/not indicated 11/12/21 11:10 - Plan (1) Atrial fibrillation with RVR Status: Acute Plan: NORMAL SALINE AT KVO, LEVAQUIN 500MG IV DAILY, CARDIZEM CD 120MG PO DAILY, XOPENEX NEB TX TID, LOVENOX 40MG SC DAILY, ECOTRIN 325MG PO DAILY, THE POTASSIUM AND MAGNESIUM PROTOCOLS, AND HIS HOME MEDICATIONS WERE RESUMED. OBTAIN LEFT LEG VENOUS DOPPLER (2) Pneumonia Status: Acute Qualifiers: Pneumonia type: due to unspecified organism Laterality: bilateral Lung location: lower lobe of lung Qualified Code(s): J18.9 - Pneumonia, unspecified organism (3) Shortness of breath Status: Acute (4) Left leg pain Status: Acute (5) Generalized weakness Status: Acute
[2021-11-13] MEDS ORDERED: CARDIZEM CD 120 MG 24-HR PO SCH (10:00)
--- NOTE | 2021-11-13 11:59 | CT ---
HISTORYELEVATED D-DIMER, AFIBSTUDYCTA CHESTCOMPARISONNoneTECHNIQUEPulmonary angiogram protocol was performed after the administration of contrast. 3D MIPS images were performed. CT scan was performed following ALARA (As low as Reasonably Achievable).Coronal and Sagittal reformatted images were performed.FINDINGSThere are small bilateral pleural effusions. The thyroid gland is no significant enlarged. There is no axillary adenopathy. There is a pretracheal lymph node measuring in short axis 9 millimeters. There is fluid in the pericardial recesses. The ascending aorta measures 3.8 centimeters. No pericardial effusions. There is no evidence of adrenal masses, the spleen is nonenlarged. The stomach is not distended, patient is status post cholecystectomy, the pancreas demonstrate no dominant lesions.There is no evidence of pulmonary embolism, no focal filling defects in the pulmonary arteries is seen. There is bibasal nonenhancing alveolar infiltrates since prior study suspicious for pneumonia and aspiration pneumonia. There is also an alveolar radiopacity with air bronchogram in the right middle lobe posteriorly.Bone windows no evidence of aggressive bone lesions. No acute fractures. Multiple anterior bridging osteophytes.IMPRESSIONNo evidence of pulmonary embolism.Small bilateral pleural effusions with bibasal infiltrates with air bronchogram involving also the right middle lobe, consider pneumonia and aspiration pneumonia.Electronically signed by: Ruby Mooney (Nov 13, 2021 11:58:50)
[2021-11-13] MEDS: NS 1,000 ML IV 1,000 ML IV SCH ×2 (14:34→23:46)
[2021-11-13] MEDS ORDERED: CORDARONE TAB 200 MG ONE (14:57)
[2021-11-13] MEDS: CORDARONE TAB 200 MG PO SCH (14:58)
[2021-11-13] MEDS: ZESTRIL TAB 5 MG PO SCH (20:46)
[2021-11-13] MEDS: ZOCOR TAB 40 MG PO SCH (20:46)
[2021-11-13] MEDS: CARDURA PO SCH (20:46)
[2021-11-13] MEDS: DESYREL PO SCH (20:46)
[2021-11-13] MEDS: COLACE CAP 100 MG PO PRN (21:00)
[2021-11-13] MEDS: LEVAQUIN PREMIX IV 500 MG 500 MG/100 ML BAG IV SCH (23:00)
[2021-11-14] MEDS: NS 1,000 ML IV 1,000 ML IV SCH ×2 (03:05→17:16)
[2021-11-14 05:05] LABS: BASOPHILS % (AUTO) 0.3 % (0.2-1.0); EOSINOPHILS # (AUTO) 0.1 x10^3/uL (0.0-0.2); EOSINOPHILS % (AUTO) 2.1 % (0.9-2.9); HEMATOCRIT 27.7 % (42.0-54.0); HEMOGLOBIN 9.5 g/dL (13.5-18.0); LYMPHOCYTES # (AUTO) 0.8 X10^3/uL (1.3-2.9); LYMPHOCYTES % (AUTO) 12.9 % (21.0-51.0); MEAN CORPUSCULAR HGB CONC 34.2 g/dL (33.0-35.0); MEAN CORPUSCULAR VOLUME 84.9 fL (80.0-100.0); MEAN PLATELET VOLUME 8.6 fL (7.4-11.0); MONOCYTES # (AUTO) 0.6 x10^3/uL (0.3-0.8); MONOCYTES % (AUTO) 10.5 % (0.0-13.0); NEUTROPHILS # (AUTO) 4.4 x10^3/uL (2.2-4.8); NEUTROPHILS % (AUTO) 74.2 % (42.0-75.0); RED BLOOD COUNT 3.26 X10^6/uL (4.7-6.0); RED CELL DISTRIBUTION WIDTH 15.1 % (11.6-16.5); WHITE BLOOD COUNT 5.9 X10^3/uL (3.6-10.0)
[2021-11-14 05:32] LABS: ALANINE AMINOTRANSFERASE 9 Units/L (12-78); ALBUMIN 2.2 g/dL (3.4-5.0); ALKALINE PHOSPHATASE 68 Units/L (46-116); ASPARTATE AMINO TRANSFERASE 10 Units/L (15-37); BLOOD UREA NITROGEN 9 mg/dL (7-18); CALCIUM 8.5 mg/dL (8.5-10.1); CARBON DIOXIDE 25.2 mmol/L (21-32); CHLORIDE 105 mmol/L (98-107); CKMB % 7.1 % (<4); COR CA(FOR HYPOALB) 9.9 mg/dL (8.5-10.1); CREATINE KINASE 14 Units/L (39-308); CREATINE KINASE MB < 1.0 ng/mL (0-4.0); CREATININE 0.86 mg/dL (0.70-1.30); SODIUM 137 mmol/L (136-145); TOTAL PROTEIN 5.6 g/dL (6.4-8.2); eGFR NON BLACK RACES > 60 (>60)
--- NOTE | 2021-11-14 06:18 | RAD ---
HISTORYShortness of breathSTUDYChest AP [id number]/2022 chest x-ray and CTA chestFINDINGSThe heart is upper limits normal in size. The yasmine are normal. No congestive heart failure is noted. Increasing density is present in the right lung base likely due to right basilar lung infiltrate. Increased density in the retrocardiac area of the left lower lobe obscuring the medial left hemidiaphragm could be due to atelectasis or infiltrate. It is unchanged. The upper lung nair remain clear. The pleural effusions detected on the recent CTA chest are not well demonstrated on plain film likely being subpulmonic in location. Bony thorax is unremarkable.IMPRESSIONIncreasing right basilar lung infiltrateNo change retrocardiac density which could represent infiltrate or atelectasisElectronically signed by: MELECIO SHWA (Nov 14, 2021 06:17:40)
[2021-11-14] MEDS: XOPENEX 1.25 MG/3 ML NEBULE NEB SCH ×3 (06:27→21:05)
[2021-11-14] MEDS ORDERED: LEXAPRO ONE (08:02)
[2021-11-14] MEDS: CORDARONE TAB 200 MG PO SCH ×2 (08:05→17:16)
[2021-11-14] MEDS: ECOTRIN TAB 325 MG PO SCH (08:06)
[2021-11-14] MEDS: HEMOCYTE-PLUS PO SCH (08:07)
[2021-11-14] MEDS: EXELON PO SCH ×2 (08:07→20:08)
[2021-11-14] MEDS: LEXAPRO PO SCH (08:07)
[2021-11-14] MEDS: LOPRESSOR TAB 25 MG PO SCH ×2 (08:07→20:09)
[2021-11-14] MEDS: LOVENOX INJ 40 MG SYR SC SCH (08:08)
[2021-11-14] MEDS: VITAMIN B-12 PO SCH (08:08)
[2021-11-14] MEDS: VITAMIN D3 25 mcg (1,000 UNITS) PO SCH (08:08)
[2021-11-14] MEDS: WELCHOL PO SCH ×2 (08:09→20:07)
[2021-11-14] MEDS ORDERED: LASIX IVP ONE (08:49)
[2021-11-14] MEDS: CARDIZEM CD 120 MG 24-HR PO SCH (09:48)
[2021-11-14] MEDS: ULTRAM PO PRN ×2 (10:23→17:23)
[2021-11-14] MEDS: DESYREL PO SCH (20:08)
[2021-11-14] MEDS: ZESTRIL TAB 5 MG PO SCH (20:08)
[2021-11-14] MEDS: ZOCOR TAB 40 MG PO SCH (20:08)
[2021-11-14] MEDS: CARDURA PO SCH (20:08)
[2021-11-14] MEDS: COLACE CAP 100 MG PO PRN (20:43)
[2021-11-14] MEDS: LEVAQUIN PREMIX IV 500 MG 500 MG/100 ML BAG IV SCH (22:30)
--- NOTE | 2021-11-15 05:18 | RAD ---
HISTORYSOB CAD, HTN, DYSLIPIDEMIA, DM, DEPRESSION, KIDNEY STONES, SLEEP APNEA SX: STENTS, CHOLECYSTECTOMY, LITHOTRIPSY, ORTHOSTUDYCHEST, 1 [id number]/07/2022FINDINGSThe trachea is midline. The cardiac silhouette is stable.. Right basilar infiltrate unchanged. Retrocardiac density in left lower lobe unchanged. No pneumothorax.. The bony thorax is unremarkable.IMPRESSIONStable portable chest.Electronically signed by: Juan Drew (Nov 15, 2021 05:18:22)
[2021-11-15 05:43] LABS: BASOPHILS % (AUTO) 0.3 % (0.2-1.0); EOSINOPHILS # (AUTO) 0.2 x10^3/uL (0.0-0.2); EOSINOPHILS % (AUTO) 3.8 % (0.9-2.9); HEMATOCRIT 27.5 % (42.0-54.0); HEMOGLOBIN 9.5 g/dL (13.5-18.0); LYMPHOCYTES # (AUTO) 0.8 X10^3/uL (1.3-2.9); LYMPHOCYTES % (AUTO) 16.4 % (21.0-51.0); MEAN CORPUSCULAR HEMOGLOBIN 29.2 pg (27.0-34.0); MEAN CORPUSCULAR HGB CONC 34.4 g/dL (33.0-35.0); MEAN CORPUSCULAR VOLUME 84.9 fL (80.0-100.0); MEAN PLATELET VOLUME 8.1 fL (7.4-11.0); MONOCYTES # (AUTO) 0.6 x10^3/uL (0.3-0.8); MONOCYTES % (AUTO) 11.5 % (0.0-13.0); NEUTROPHILS # (AUTO) 3.3 x10^3/uL (2.2-4.8); RED BLOOD COUNT 3.24 X10^6/uL (4.7-6.0); RED CELL DISTRIBUTION WIDTH 14.9 % (11.6-16.5); WHITE BLOOD COUNT 4.9 X10^3/uL (3.6-10.0)
[2021-11-15] MEDS: XOPENEX 1.25 MG/3 ML NEBULE NEB SCH ×3 (06:02→21:25)
[2021-11-15 06:07] LABS: ALANINE AMINOTRANSFERASE 11 Units/L (12-78); ALBUMIN 2.2 g/dL (3.4-5.0); ALKALINE PHOSPHATASE 72 Units/L (46-116); ASPARTATE AMINO TRANSFERASE 11 Units/L (15-37); BLOOD UREA NITROGEN 10 mg/dL (7-18); CALCIUM 8.6 mg/dL (8.5-10.1); CARBON DIOXIDE 24.9 mmol/L (21-32); CHLORIDE 103 mmol/L (98-107); CKMB % 7.7 % (<4); COR NA(FOR HYPERGLY) 138 mmol/L (136-145); CREATINE KINASE 13 Units/L (39-308); CREATINE KINASE MB < 1.0 ng/mL (0-4.0); CREATININE 0.91 mg/dL (0.70-1.30); SODIUM 138 mmol/L (136-145); TOTAL PROTEIN 5.6 g/dL (6.4-8.2); eGFR NON BLACK RACES > 60 (>60)
[2021-11-15] MEDS: CORDARONE TAB 200 MG PO SCH ×2 (06:21→16:33)
[2021-11-15] MEDS ORDERED: LEXAPRO ONE (07:43)
[2021-11-15] MEDS: ECOTRIN TAB 325 MG PO SCH (08:20)
[2021-11-15] MEDS: LEXAPRO PO SCH (08:20)
[2021-11-15] MEDS: EXELON PO SCH ×2 (08:20→20:47)
[2021-11-15] MEDS: CARDIZEM CD 120 MG 24-HR PO SCH (08:20)
[2021-11-15] MEDS: LOVENOX INJ 40 MG SYR SC SCH (08:21)
[2021-11-15] MEDS: LOPRESSOR TAB 25 MG PO SCH ×2 (08:21→20:50)
[2021-11-15] MEDS: HEMOCYTE-PLUS PO SCH (08:21)
[2021-11-15] MEDS: VITAMIN B-12 PO SCH (08:21)
[2021-11-15] MEDS: WELCHOL PO SCH ×2 (08:21→20:58)
[2021-11-15] MEDS: VITAMIN D3 25 mcg (1,000 UNITS) PO SCH (08:21)
[2021-11-15] MEDS: NS 1,000 ML IV 1,000 ML IV SCH ×2 (08:53→22:21)
[2021-11-15] MEDS: ULTRAM PO PRN (18:12)
[2021-11-15] MEDS ORDERED: TYLENOL 325 MG TAB PO PRN (20:44)
[2021-11-15] MEDS: DESYREL PO SCH (20:47)
[2021-11-15] MEDS: ZOCOR TAB 40 MG PO SCH (20:47)
[2021-11-15] MEDS: ZESTRIL TAB 5 MG PO SCH (20:48)
[2021-11-15] MEDS: CARDURA PO SCH (20:48)
[2021-11-15] MEDS: COLACE CAP 100 MG PO PRN (21:01)
[2021-11-15] MEDS: LEVAQUIN PREMIX IV 500 MG 500 MG/100 ML BAG IV SCH (22:45)
[2021-11-16] MEDS: ULTRAM PO PRN (04:15)
[2021-11-16] MEDS: XOPENEX 1.25 MG/3 ML NEBULE NEB SCH ×3 (05:50→20:52)
[2021-11-16] MEDS: CORDARONE TAB 200 MG PO SCH ×2 (06:24→16:02)
[2021-11-16 06:48] LABS: BASOPHILS % (AUTO) 0.3 % (0.2-1.0); EOSINOPHILS # (AUTO) 0.2 x10^3/uL (0.0-0.2); HEMATOCRIT 27.1 % (42.0-54.0); HEMOGLOBIN 9.2 g/dL (13.5-18.0); LYMPHOCYTES # (AUTO) 0.8 X10^3/uL (1.3-2.9); LYMPHOCYTES % (AUTO) 18.4 % (21.0-51.0); MEAN CORPUSCULAR HEMOGLOBIN 28.7 pg (27.0-34.0); MEAN CORPUSCULAR VOLUME 84.5 fL (80.0-100.0); MEAN PLATELET VOLUME 8.2 fL (7.4-11.0); MONOCYTES # (AUTO) 0.4 x10^3/uL (0.3-0.8); NEUTROPHILS # (AUTO) 2.9 x10^3/uL (2.2-4.8); NEUTROPHILS % (AUTO) 66.3 % (42.0-75.0); RED BLOOD COUNT 3.21 X10^6/uL (4.7-6.0); RED CELL DISTRIBUTION WIDTH 14.7 % (11.6-16.5); WHITE BLOOD COUNT 4.4 X10^3/uL (3.6-10.0)
--- NOTE | 2021-11-16 06:48 | RAD ---
HISTORYSOB HX: HTN, CAD, DM SX: STENTS, GBSTUDYCHEST, 1 [id number]/08/2022FINDINGSTrachea is midline. Stable mild cardiomegaly. There is persistent right lower lobe radiopacity t, here has interval improvement of aeration at the left base. There is a skin fold in the left apex. In the right, there is a focal density that could correspond with and skin fold however pneumothorax is not excluded short-term follow-up is recommended.IMPRESSIONImprovement aeration at the left base. Persistent right lower lobe radiopacity.Skin fold versus pneumothorax in the right apex. Short-term follow-up is recommended.Electronically signed by: Ruby Mooney (Nov 16, 2021 06:47:50)
[2021-11-16 07:01] LABS: ALANINE AMINOTRANSFERASE 11 Units/L (12-78); ALBUMIN 2.1 g/dL (3.4-5.0); ALKALINE PHOSPHATASE 69 Units/L (46-116); ASPARTATE AMINO TRANSFERASE 11 Units/L (15-37); BLOOD UREA NITROGEN 9 mg/dL (7-18); CALCIUM 8.5 mg/dL (8.5-10.1); CHLORIDE 107 mmol/L (98-107); CREATININE 0.88 mg/dL (0.70-1.30); SODIUM 142 mmol/L (136-145); TOTAL PROTEIN 5.5 g/dL (6.4-8.2); eGFR NON BLACK RACES > 60 (>60)
[2021-11-16] MEDS ORDERED: LEXAPRO ONE (08:15)
[2021-11-16] MEDS ORDERED: MILK OF MAGNESIA PO PRN (09:09)
[2021-11-16] MEDS: COLACE CAP 100 MG PO PRN (09:48)
[2021-11-16] MEDS: CARDIZEM CD 120 MG 24-HR PO SCH (09:49)
[2021-11-16] MEDS: EXELON PO SCH ×2 (09:49→20:53)
[2021-11-16] MEDS: ECOTRIN TAB 325 MG PO SCH (09:49)
[2021-11-16] MEDS: HEMOCYTE-PLUS PO SCH (09:50)
[2021-11-16] MEDS: LEXAPRO PO SCH (09:50)
[2021-11-16] MEDS: LOPRESSOR TAB 25 MG PO SCH ×2 (09:50→20:52)
[2021-11-16] MEDS: VITAMIN D3 25 mcg (1,000 UNITS) PO SCH (09:51)
[2021-11-16] MEDS: LOVENOX INJ 40 MG SYR SC SCH (09:51)
[2021-11-16] MEDS: VITAMIN B-12 PO SCH (09:51)
[2021-11-16] MEDS: WELCHOL PO SCH ×2 (09:51→20:53)
[2021-11-16] MEDS: K-DUR TAB 20 MEQ PO PRN (09:52)
[2021-11-16] MEDS: NS 1,000 ML IV 1,000 ML IV SCH ×2 (14:09→20:54)
[2021-11-16] MEDS: DESYREL PO SCH (20:52)
[2021-11-16] MEDS: ZESTRIL TAB 5 MG PO SCH (20:53)
[2021-11-16] MEDS: ZOCOR TAB 40 MG PO SCH (20:53)
[2021-11-16] MEDS: CARDURA PO SCH (20:54)
[2021-11-16] MEDS: MIRALAX POWDER (1 DOSE 17 G) PO SCH (20:54)
[2021-11-16] MEDS: LEVAQUIN PREMIX IV 500 MG 500 MG/100 ML BAG IV SCH (22:20)
[2021-11-17] MEDS: NS 1,000 ML IV 1,000 ML IV SCH ×2 (01:21→15:15)
[2021-11-17] MEDS: ULTRAM PO PRN ×2 (01:31→09:58)
[2021-11-17 05:48] LABS: BASOPHILS % (AUTO) 0.3 % (0.2-1.0); EOSINOPHILS # (AUTO) 0.2 x10^3/uL (0.0-0.2); EOSINOPHILS % (AUTO) 3.7 % (0.9-2.9); HEMATOCRIT 27.6 % (42.0-54.0); HEMOGLOBIN 9.5 g/dL (13.5-18.0); LYMPHOCYTES # (AUTO) 0.9 X10^3/uL (1.3-2.9); MEAN CORPUSCULAR HEMOGLOBIN 28.8 pg (27.0-34.0); MEAN CORPUSCULAR HGB CONC 34.4 g/dL (33.0-35.0); MEAN CORPUSCULAR VOLUME 83.9 fL (80.0-100.0); MEAN PLATELET VOLUME 7.6 fL (7.4-11.0); MONOCYTES # (AUTO) 0.5 x10^3/uL (0.3-0.8); MONOCYTES % (AUTO) 8.8 % (0.0-13.0); NEUTROPHILS # (AUTO) 3.7 x10^3/uL (2.2-4.8); NEUTROPHILS % (AUTO) 70.2 % (42.0-75.0); RED BLOOD COUNT 3.29 X10^6/uL (4.7-6.0); RED CELL DISTRIBUTION WIDTH 14.8 % (11.6-16.5); WHITE BLOOD COUNT 5.3 X10^3/uL (3.6-10.0)
[2021-11-17 06:04] LABS: ALANINE AMINOTRANSFERASE 13 Units/L (12-78); ALBUMIN 2.2 g/dL (3.4-5.0); ALKALINE PHOSPHATASE 74 Units/L (46-116); ASPARTATE AMINO TRANSFERASE 12 Units/L (15-37); BLOOD UREA NITROGEN 9 mg/dL (7-18); CALCIUM 8.5 mg/dL (8.5-10.1); CARBON DIOXIDE 29.6 mmol/L (21-32); CHLORIDE 105 mmol/L (98-107); COR CA(FOR HYPOALB) 9.9 mg/dL (8.5-10.1); CREATININE 0.77 mg/dL (0.70-1.30); SODIUM 141 mmol/L (136-145); TOTAL PROTEIN 5.8 g/dL (6.4-8.2); eGFR NON BLACK RACES > 60 (>60)
[2021-11-17] MEDS: XOPENEX 1.25 MG/3 ML NEBULE NEB SCH ×3 (06:12→20:05)
--- NOTE | 2021-11-17 07:38 | RAD ---
HISTORYSOBSTUDYAP chestCOMPARISONApril 2021FINDINGSHeart size is stable/similar. There is increasing confluent airspace disease in both lower lobes. No pleural fluid component or pneumothorax identified.IMPRESSIONIncreasing bilateral lower lobe pneumonia. No pneumothorax or other extrapulmonary air identified.Electronically signed by: EMERSON IVAN (Nov 17, 2021 07:38:24)
[2021-11-17] MEDS ORDERED: LEXAPRO ONE (07:51)
[2021-11-17] MEDS: CORDARONE TAB 200 MG PO SCH ×2 (08:06→16:43)
[2021-11-17] MEDS: CARDIZEM CD 120 MG 24-HR PO SCH (08:06)
[2021-11-17] MEDS: LEXAPRO PO SCH (08:07)
[2021-11-17] MEDS: LOPRESSOR TAB 25 MG PO SCH ×2 (08:07→20:33)
[2021-11-17] MEDS: EXELON PO SCH ×2 (08:07→20:33)
[2021-11-17] MEDS: ECOTRIN TAB 325 MG PO SCH (08:07)
[2021-11-17] MEDS: HEMOCYTE-PLUS PO SCH (08:07)
[2021-11-17] MEDS: VITAMIN D3 25 mcg (1,000 UNITS) PO SCH (08:08)
[2021-11-17] MEDS: WELCHOL PO SCH ×2 (08:08→20:33)
[2021-11-17] MEDS: VITAMIN B-12 PO SCH (08:08)
[2021-11-17] MEDS: LOVENOX INJ 40 MG SYR SC SCH (08:08)
[2021-11-17] MEDS: K-DUR TAB 20 MEQ PO PRN (08:09)
[2021-11-17] MEDS ORDERED: KLONOPIN TAB 0.5 MG ONE (18:59)
[2021-11-17] MEDS: DESYREL PO SCH (20:32)
[2021-11-17] MEDS: MIRALAX POWDER (1 DOSE 17 G) PO SCH (20:32)
[2021-11-17] MEDS: ZOCOR TAB 40 MG PO SCH (20:33)
[2021-11-17] MEDS: ZESTRIL TAB 5 MG PO SCH (20:34)
[2021-11-17] MEDS: CARDURA PO SCH (20:34)
[2021-11-17] MEDS ORDERED: KLONOPIN TAB 0.5 MG PO SCH (21:00)
[2021-11-17] MEDS: LEVAQUIN PREMIX IV 500 MG 500 MG/100 ML BAG IV SCH (23:07)
[2021-11-18] MEDS: NS 1,000 ML IV 1,000 ML IV SCH (05:31)
[2021-11-18] MEDS: XOPENEX 1.25 MG/3 ML NEBULE NEB SCH ×2 (06:00→11:30)
--- NOTE | 2021-11-18 06:19 | RAD ---
HISTORYleft lower lobe pnemoniaSTUDYCHEST, 1 [id number]/10/2022.TECHNIQUEAP view of the chestFINDINGSThe cardiac and mediastinal contours appear normal. There is mild improvement in bibasilar airspace opacities. No discernible pleural effusion or pneumothorax.IMPRESSIONMild improvement in bibasilar airspace opacities consistent with pneumonia.Electronically signed by: Rob Servin (Nov 18, 2021 06:17:32)
[2021-11-18 07:01] LABS: BASOPHILS % (AUTO) 0.4 % (0.2-1.0); EOSINOPHILS # (AUTO) 0.2 x10^3/uL (0.0-0.2); EOSINOPHILS % (AUTO) 3.6 % (0.9-2.9); HEMATOCRIT 29.6 % (42.0-54.0); HEMOGLOBIN 10.3 g/dL (13.5-18.0); LYMPHOCYTES # (AUTO) 0.9 X10^3/uL (1.3-2.9); LYMPHOCYTES % (AUTO) 15.4 % (21.0-51.0); MEAN CORPUSCULAR HEMOGLOBIN 29.1 pg (27.0-34.0); MEAN CORPUSCULAR HGB CONC 34.7 g/dL (33.0-35.0); MEAN CORPUSCULAR VOLUME 83.8 fL (80.0-100.0); MEAN PLATELET VOLUME 7.8 fL (7.4-11.0); MONOCYTES # (AUTO) 0.5 x10^3/uL (0.3-0.8); MONOCYTES % (AUTO) 8.3 % (0.0-13.0); NEUTROPHILS # (AUTO) 4.3 x10^3/uL (2.2-4.8); NEUTROPHILS % (AUTO) 72.3 % (42.0-75.0); RED BLOOD COUNT 3.53 X10^6/uL (4.7-6.0); RED CELL DISTRIBUTION WIDTH 14.8 % (11.6-16.5); WHITE BLOOD COUNT 5.9 X10^3/uL (3.6-10.0)
[2021-11-18] MEDS ORDERED: LEXAPRO ONE (07:26)
[2021-11-18 07:31] LABS: ALANINE AMINOTRANSFERASE 15 Units/L (12-78); ALBUMIN 2.3 g/dL (3.4-5.0); ALKALINE PHOSPHATASE 79 Units/L (46-116); ASPARTATE AMINO TRANSFERASE 16 Units/L (15-37); BLOOD UREA NITROGEN 8 mg/dL (7-18); CALCIUM 8.8 mg/dL (8.5-10.1); CARBON DIOXIDE 28.1 mmol/L (21-32); CHLORIDE 105 mmol/L (98-107); COR CA(FOR HYPOALB) 10.2 mg/dL (8.5-10.1); CREATININE 0.78 mg/dL (0.70-1.30); SODIUM 140 mmol/L (136-145); TOTAL PROTEIN 6.1 g/dL (6.4-8.2); eGFR NON BLACK RACES > 60 (>60)
[2021-11-18] MEDS: CORDARONE TAB 200 MG PO SCH (08:22)
[2021-11-18] MEDS: CARDIZEM CD 120 MG 24-HR PO SCH (08:23)
[2021-11-18] MEDS: HEMOCYTE-PLUS PO SCH (08:23)
[2021-11-18] MEDS: ECOTRIN TAB 325 MG PO SCH (08:23)
[2021-11-18] MEDS: LOVENOX INJ 40 MG SYR SC SCH (08:24)
[2021-11-18] MEDS: LEXAPRO PO SCH (08:24)
[2021-11-18] MEDS: EXELON PO SCH (08:24)
[2021-11-18] MEDS: LOPRESSOR TAB 25 MG PO SCH (08:24)
[2021-11-18] MEDS: WELCHOL PO SCH (08:25)
[2021-11-18] MEDS: VITAMIN B-12 PO SCH (08:25)
[2021-11-18] MEDS: VITAMIN D3 25 mcg (1,000 UNITS) PO SCH (08:25)
[2021-11-18 13:56] VITALS: BP 124/59
--- NOTE | 2021-12-26 15:52 | PCM.PROG ---
Progress Note - Progress Note for Day of Date of Exam: 11/12/21 - Subjective Subjective: WAS ADMITTED INPATIENT STATUS FOR TREATMENT OF NEW ONSET A-FIB WITH RVR, PNEUMONIA, AND GENERALIZED WEAKNESS. TODAY, HE IS ALERT AND ORIENTED, LYING IN BED ON MORNING ROUNDS. HE CONTINUES WITH COMPLAINTS OF A NON- PRODUCTIVE COUGH, INTERMITTENT SHORTNESS OF BREATH, AND INTERMITTENT LEFT LEG PAIN. HE REMAINS IN THE INTENSIVE CARE UNIT ON A CARDIZEM DRIP. HR HAS BEEN IN THE 70s-80s THIS MORNING AND THROUGHOUT THE NIGHT. ON EXAMINATION, A-FIB NOTED TO AUSCULTATION WITH NORMAL HR. BILATERAL LUNGS NOTED WITH DIMINISHED LUNG SOUNDS THROUGHOUT. ABDOMEN IS ROUND, SOFT, AND NON-TENDER WITH NORMAL BOWEL SOUNDS NOTED IN ALL QUADRANTS. LLE TENDERNESS NOTED. NO UPPER OR LOWER EXTREMITY EDEMA NOTED. HIS VITALS THIS MORNING ARE: 98.2-75-19-98%-136/59. LABS WERE OBTAINED. ABNORMAL LAB VALUES INCLUDE THE FOLLOWING: RBC 3.58, HGB 10.5, HCT 30.5, PLT COUNT 107, GLUCOSE 107, TOTAL BILI 1.70, AST 10, ALT 9, CREATINE KINASE 27, TROPONIN 325.3, TOTAL PROTEIN 5.8, ALBUMIN 2.6. I FEEL THAT INCREASED TROPONIN IS DUE TO A-FIB, BUT WE WILL CONTINUE TO MONITOR AND CONSULT WITH , ICU TECH, WHEN HE IS AVAILABLE TOMORROW. HE IS CURRENTLY RECEIVING NORMAL SALINE AT KVO, LEVAQUIN 500MG IV DAILY, CARDIZEM IV DRIP, XOPENEX NEB TX TID, LOVENOX 40MG SC DAILY, ECOTRIN 325MG PO DAILY, THE POTASSIUM AND MAGNESIUM PROTOCOLS, AND HIS HOME MEDICATIONS WERE RESUMED. WE WILL OBTAIN A VENOUS DOPPLER TO RULE OUT DVT. OTHERWISE, WE PLAN TO FOLLOW UP WITH AM LABS AND CHEST XRAY AND CONTINUE TO MONITOR. TIME SPENT ON CLINICAL ASSESSMENT, REVIEWING LABS AND IMAGING, DECISION MAKING, AND DOCUMENTATION GREATER THAN 45 MINUTES. - Past Medical Family Social History Past Med/Fam/Surg Hx: No changes since H&P Allergies: Allergies amoxicillin [From Augmentin] Allergy (Verified 11/11/21 21:01) clavulanic acid [From Augmentin] Allergy (Verified 11/11/21 21:01) codeine Allergy (Verified 07/10/21 17:07) haloperidol [From Haldol] Allergy (Verified 07/10/21 17:07) lactose Allergy (Verified 07/10/21 17:07) promethazine [From Phenergan] Allergy (Verified 07/10/21 17:07) shellfish derived Allergy (Verified 07/10/21 17:07) - Review of Systems ROS: No change since H&P - Vital Signs and I&O's Vital Signs: Temperature 97.9 F Pulse Rate [Bilateral Radial] 101 Pulse Rate 69 Respiratory Rate 22 Blood Pressure [Left Arm] 123/57 Blood Pressure 124/59 O2 Sat by Pulse Oximetry 100 - Physical Exam Oriented: Person, Place Eyes: Normal Ear: Normal Nose: Normal Throat: Normal Respiratory: Generalized, Diminished Cardiovascular: Tachycardia, Irregular : Normal Auscultation: Bowel Sounds: Normal Tenderness: Normal Skin: Normal Musculoskeletal: Right, Leg, Tender Psychiatric: Normal Mood Description: Calm Affect: Normal Speech Pattern: Clear, Appropriate - Laboratory and Diagnostics Result Diagrams: 11/18/21 05:20 11/18/21 05:20 Labs: 11/15/21 11:21 Blood Blood Culture - Final 11/17/21 13:10 Sputum - Expectorated Sputum Sputum Culture - Final Methicillin Resis Staph Aureus 11/17/21 13:10 Sputum - Expectorated Sputum - Final 11/15/21 11:15 Blood Blood Culture - Final 11/11/21 19:15 Blood Blood Culture - Final 11/11/21 18:53 Blood Blood Culture - Final Laboratory WBC 5.9 X10^3/uL (3.6-10.0) 11/18/21 05:20 RBC 3.53 X10^6/uL (4.7-6.0) L 11/18/21 05:20 Hgb 10.3 g/dL (13.5-18.0) L 11/18/21 05:20 Hct 29.6 % (42.0-54.0) L 11/18/21 05:20 MCV 83.8 fL (80.0-100.0) 11/18/21 05:20 MCH 29.1 pg (27.0-34.0) 11/18/21 05:20 MCHC 34.7 g/dL (33.0-35.0) 11/18/21 05:20 RDW 14.8 % (11.6-16.5) 11/18/21 05:20 Plt Count 177 X10^3/uL (150.0-450.0) 11/18/21 05:20 MPV 7.8 fL (7.4-11.0) 11/18/21 05:20 Neut % (Auto) 72.3 % (42.0-75.0) 11/18/21 05:20 Lymph % (Auto) 15.4 % (21.0-51.0) L 11/18/21 05:20 [place] % (Auto) 8.3 % (0.0-13.0) 11/18/21 05:20 Eos % (Auto) 3.6 % (0.9-2.9) H 11/18/21 05:20 Baso % (Auto) 0.4 % (0.2-1.0) 11/18/21 05:20 Neut # (Auto) 4.3 x10^3/uL (2.2-4.8) 11/18/21 05:20 Lymph # (Auto) 0.9 X10^3/uL (1.3-2.9) L 11/18/21 05:20 [place] # (Auto) 0.5 x10^3/uL (0.3-0.8) 11/18/21 05:20 Eos # (Auto) 0.2 x10^3/uL (0.0-0.2) 11/18/21 05:20 Baso # (Auto) 0.0 X10^3/uL (0.0-0.1) 11/18/21 05:20 Absolute Nucleated RBC 0.0 /100WBC 11/18/21 05:20 PT 14.5 SECONDS (11.8-14.3) 11/11/21 18:53 INR Target Range - 11/11/21 18:53 INR 1.17 (0.8-1.3) 11/11/21 18:53 APTT 30.0 SECONDS (22.9-36.5) 11/11/21 18:53 PTT Comment - 11/11/21 18:53 D-Dimer 1.59 ug/ml (0.0-0.57) H* 11/12/21 04:40 Sodium 140 mmol/L (136-145) 11/18/21 05:20 Corrected Sodium TNP 11/18/21 05:20 Potassium 3.9 mmol/L (3.5-5.1) 11/18/21 05:20 Chloride 105 mmol/L (98-107) 11/18/21 05:20 Carbon Dioxide 28.1 mmol/L (21-32) 11/18/21 05:20 BUN 8 mg/dL (7-18) 11/18/21 05:20 Creatinine 0.78 mg/dL (0.70-1.30) 11/18/21 05:20 Est GFR (MDRD) Af Amer > 60 (>60) 11/18/21 05:20 Est GFR (MDRD) Non-Af > 60 (>60) 11/18/21 05:20 Glucose 97 mg/dL (65-99) 11/18/21 05:20 Lactic Acid 1.2 mmol/L (0.4-2.0) 11/11/21 18:53 Calcium 8.8 mg/dL (8.5-10.1) 11/18/21 05:20 Corrected Calcium 10.2 mg/dL (8.5-10.1) H 11/18/21 05:20 Magnesium 2.2 mg/dL (1.7-2.9) 11/12/21 04:40 Total Bilirubin 0.40 mg/dL (0.2-1.0) 11/18/21 05:20 AST 16 Units/L (15-37) 11/18/21 05:20 ALT 15 Units/L (12-78) 11/18/21 05:20 Alkaline Phosphatase 79 Units/L (46-116) 11/18/21 05:20 Creatine Kinase 13 Units/L (39-308) L 11/15/21 05:10 CK-MB (CK-2) < 1.0 ng/mL (0-4.0) 11/15/21 05:10 CK/CKMB % Calc 7.7 % (<4) 11/15/21 05:10 Troponin I High Sens 62.7 ng/L (4.0-60.0) H* 11/15/21 05:10 Total Protein 6.1 g/dL (6.4-8.2) L 11/18/21 05:20 Albumin 2.3 g/dL (3.4-5.0) L 11/18/21 05:20 Globulin 3.8 g/dL (2.5-4.5) 11/18/21 05:20 Albumin/Globulin Ratio 0.6 Ratio (1.1-2.1) L 11/18/21 05:20 Specimen Type Clean catch urine 11/12/21 11:10 Urine Color Yellow (YELLOW) 11/12/21 11:10 Urine Appearance Clear (CLEAR) 11/12/21 11:10 Urine pH 6.0 (5.0 - 8.0) 11/12/21 11:10 Ur Specific [place] 1.020 (1.000-1.030) 11/12/21 11:10 Urine Protein 1+ (NEGATIVE) 11/12/21 11:10 Urine Glucose (UA) Negative (NEGATIVE) 11/12/21 11:10 Urine Ketones Negative (NEGATIVE) 11/12/21 11:10 Urine Blood 1+ (NEGATIVE) 11/12/21 11:10 Urine Nitrite Negative (NEGATIVE) 11/12/21 11:10 Urine Bilirubin Negative (NEGATIVE) 11/12/21 11:10 Urine Urobilinogen Normal (NORMAL) 11/12/21 11:10 Ur Leukocyte Esterase Negative (NEGATIVE) 11/12/21 11:10 Urine RBC 0-2 /HPF (0-3) 11/12/21 11:10 Urine WBC None seen /HPF (0-5) 11/12/21 11:10 Ur Squamous Epith Cells Negative /HPF (NEGATIVE) 11/12/21 11:10 Amorphous Sediment Trace /HPF (NEGATIVE) 11/12/21 11:10 Urine Bacteria Negative /HPF (NEGATIVE) 11/12/21 11:10 Ur Culture Indicated? No/not indicated 11/12/21 11:10 - Plan (1) Atrial fibrillation with RVR Status: Acute Plan: NORMAL SALINE AT KVO, LEVAQUIN 500MG IV DAILY, CARDIZEM DRIP, XOPENEX NEB TX TID, LOVENOX 40MG SC DAILY, ECOTRIN 325MG PO DAILY, THE POTASSIUM AND MAGNE SIUM PROTOCOLS, AND HIS HOME MEDICATIONS WERE RESUMED. OBTAIN LEFT LEG VENOUS DOPPLER (2) Pneumonia Status: Acute Qualifiers: Pneumonia type: due to unspecified organism Laterality: bilateral Lung location: lower lobe of lung Qualified Code(s): J18.9 - Pneumonia, unspecified organism (3) Shortness of breath Status: Acute (4) Left leg pain Status: Acute (5) Generalized weakness Status: Acute
--- NOTE | 2021-12-26 16:34 | PCM.PROG ---
Progress Note - Progress Note for Day of Date of Exam: 11/14/21 - Subjective Subjective: WAS ADMITTED INPATIENT STATUS FOR TREATMENT OF NEW ONSET A-FIB WITH RVR, PNEUMONIA, AND GENERALIZED WEAKNESS. TODAY, HE IS ALERT AND ORIENTED, LYING IN BED ON MORNING ROUNDS. HE CONTINUES WITH COMPLAINTS OF A NON- PRODUCTIVE COUGH, INTERMITTENT SHORTNESS OF BREATH, AND INTERMITTENT LEFT LEG PAIN. SLIGHT INCREASE IN SHORTNESS OF BREATH TODAY. HE REMAINS IN THE INTENSIVE CARE UNIT. ON EXAMINATION, A-FIB NOTED TO AUSCULTATION WITH NORMAL HR. BILATERAL LUNGS NOTED WITH DIMINISHED LUNG SOUNDS THROUGHOUT. ABDOMEN IS ROUND, SOFT, AND NON-TENDER WITH NORMAL BOWEL SOUNDS NOTED IN ALL QUADRANTS. LLE TENDERNESS NOTED. NO UPPER OR LOWER EXTREMITY EDEMA NOTED. HIS VITALS THIS MORNING ARE: 99.9-100-16-92%-153/86. LABS WERE OBTAINED. ABNORMAL LAB VALUES INCLUDE THE FOLLOWING: RBC 3.26, HGB 9.5, HCT 27.7, PLT COUNT 116, GLUCOSE 108, AST 10, ALT 9, CREATINE KINASE 14, TROPONIN 95.4, TOTAL PROTEIN 5.6, ALBUMIN 2.2. A CHEST XRAY WAS OBTAINED TODAY AND REVEALED: Increasing right basilar lung infiltrate. No change retrocardiac density which could represent infiltrate or atelectasis. A CHEST CTA WAS OBTAINED YESTERDAY AND REVEALED: No evidence of pulmonary embolism. Small bilateral pleural effusions with bibasal infiltrates with air bronchogram involving also the right middle lobe, consider pneumonia and aspiration pneumonia. CONSULTED WITH HIM YESTERDAY AND ADDED AMIODAR ONE 200MG PO BID. HE IS CURRENTLY RECEIVING NORMAL SALINE AT [facility], LEVAQUIN 500MG IV DAILY, CARDIZEM IV DRIP, XOPENEX NEB TX TID, LOVENOX 40MG SC DAILY, ECOTRIN 325MG PO DAILY, THE POTASSIUM AND MAGNESIUM PROTOCOLS, AND HIS HOME MEDICATIONS WERE RESUMED. WE WILL ADMINISTER FUROSEMIDE 40MG IV X 1 DOSE TODAY. OTHERWISE, WE PLAN TO FOLLOW UP WITH AM LABS AND CHEST XRAY AND CONTINUE TO MONITOR. TIME SPENT ON CLINICAL ASSESSMENT, REVIEWING LABS AND IMAGING, DECISION MAKING, AND DOCUMENTATION GREATER THAN 45 MINUTES. - Past Medical Family Social History Past Med/Fam/Surg Hx: No changes since H&P Allergies: Allergies amoxicillin [From Augmentin] Allergy (Verified 11/11/21 21:01) clavulanic acid [From Augmentin] Allergy (Verified 11/11/21 21:01) codeine Allergy (Verified 07/10/21 17:07) haloperidol [From Haldol] Allergy (Verified 07/10/21 17:07) lactose Allergy (Verified 07/10/21 17:07) promethazine [From Phenergan] Allergy (Verified 07/10/21 17:07) shellfish derived Allergy (Verified 07/10/21 17:07) - Review of Systems ROS: No change since H&P - Vital Signs and I&O's Vital Signs: Temperature 97.9 F Pulse Rate [Bilateral Radial] 101 Pulse Rate 69 Respiratory Rate 22 Blood Pressure [Left Arm] 123/57 Blood Pressure 124/59 O2 Sat by Pulse Oximetry 100 - Physical Exam Oriented: Person, Place Eyes: Normal Ear: Normal Nose: Normal Throat: Normal Respiratory: Generalized, Diminished Cardiovascular: Normal, Irregular : Normal Auscultation: Bowel Sounds: Normal Palpation: Normal Tenderness: Normal Skin: Normal Musculoskeletal: Right, Leg, Tender Psychiatric: Normal Mood Description: Calm Affect: Normal Speech Pattern: Clear, Appropriate - Laboratory and Diagnostics Result Diagrams: 11/18/21 05:20 11/18/21 05:20 Labs: 11/15/21 11:21 Blood Blood Culture - Final 11/17/21 13:10 Sputum - Expectorated Sputum Sputum Culture - Final Methicillin Resis Staph Aureus 11/17/21 13:10 Sputum - Expectorated Sputum - Final 11/15/21 11:15 Blood Blood Culture - Final 11/11/21 19:15 Blood Blood Culture - Final 11/11/21 18:53 Blood Blood Culture - Final Laboratory WBC 5.9 X10^3/uL (3.6-10.0) 11/18/21 05:20 RBC 3.53 X10^6/uL (4.7-6.0) L 11/18/21 05:20 Hgb 10.3 g/dL (13.5-18.0) L 11/18/21 05:20 Hct 29.6 % (42.0-54.0) L 11/18/21 05:20 MCV 83.8 fL (80.0-100.0) 11/18/21 05:20 MCH 29.1 pg (27.0-34.0) 11/18/21 05:20 MCHC 34.7 g/dL (33.0-35.0) 11/18/21 05:20 RDW 14.8 % (11.6-16.5) 11/18/21 05:20 Plt Count 177 X10^3/uL (150.0-450.0) 11/18/21 05:20 MPV 7.8 fL (7.4-11.0) 11/18/21 05:20 Neut % (Auto) 72.3 % (42.0-75.0) 11/18/21 05:20 Lymph % (Auto) 15.4 % (21.0-51.0) L 11/18/21 05:20 [place] % (Auto) 8.3 % (0.0-13.0) 11/18/21 05:20 Eos % (Auto) 3.6 % (0.9-2.9) H 11/18/21 05:20 Baso % (Auto) 0.4 % (0.2-1.0) 11/18/21 05:20 Neut # (Auto) 4.3 x10^3/uL (2.2-4.8) 11/18/21 05:20 Lymph # (Auto) 0.9 X10^3/uL (1.3-2.9) L 11/18/21 05:20 [place] # (Auto) 0.5 x10^3/uL (0.3-0.8) 11/18/21 05:20 Eos # (Auto) 0.2 x10^3/uL (0.0-0.2) 11/18/21 05:20 Baso # (Auto) 0.0 X10^3/uL (0.0-0.1) 11/18/21 05:20 Absolute Nucleated RBC 0.0 /100WBC 11/18/21 05:20 PT 14.5 SECONDS (11.8-14.3) 11/11/21 18:53 INR Target Range - 11/11/21 18:53 INR 1.17 (0.8-1.3) 11/11/21 18:53 APTT 30.0 SECONDS (22.9-36.5) 11/11/21 18:53 PTT Comment - 11/11/21 18:53 D-Dimer 1.59 ug/ml (0.0-0.57) H* 11/12/21 04:40 Sodium 140 mmol/L (136-145) 11/18/21 05:20 Corrected Sodium TNP 11/18/21 05:20 Potassium 3.9 mmol/L (3.5-5.1) 11/18/21 05:20 Chloride 105 mmol/L (98-107) 11/18/21 05:20 Carbon Dioxide 28.1 mmol/L (21-32) 11/18/21 05:20 BUN 8 mg/dL (7-18) 11/18/21 05:20 Creatinine 0.78 mg/dL (0.70-1.30) 11/18/21 05:20 Est GFR (MDRD) Af Amer > 60 (>60) 11/18/21 05:20 Est GFR (MDRD) Non-Af > 60 (>60) 11/18/21 05:20 Glucose 97 mg/dL (65-99) 11/18/21 05:20 Lactic Acid 1.2 mmol/L (0.4-2.0) 11/11/21 18:53 Calcium 8.8 mg/dL (8.5-10.1) 11/18/21 05:20 Corrected Calcium 10.2 mg/dL (8.5-10.1) H 11/18/21 05:20 Magnesium 2.2 mg/dL (1.7-2.9) 11/12/21 04:40 Total Bilirubin 0.40 mg/dL (0.2-1.0) 11/18/21 05:20 AST 16 Units/L (15-37) 11/18/21 05:20 ALT 15 Units/L (12-78) 11/18/21 05:20 Alkaline Phosphatase 79 Units/L (46-116) 11/18/21 05:20 Creatine Kinase 13 Units/L (39-308) L 11/15/21 05:10 CK-MB (CK-2) < 1.0 ng/mL (0-4.0) 11/15/21 05:10 CK/CKMB % Calc 7.7 % (<4) 11/15/21 05:10 Troponin I High Sens 62.7 ng/L (4.0-60.0) H* 11/15/21 05:10 Total Protein 6.1 g/dL (6.4-8.2) L 11/18/21 05:20 Albumin 2.3 g/dL (3.4-5.0) L 11/18/21 05:20 Globulin 3.8 g/dL (2.5-4.5) 11/18/21 05:20 Albumin/Globulin Ratio 0.6 Ratio (1.1-2.1) L 11/18/21 05:20 Specimen Type Clean catch urine 11/12/21 11:10 Urine Color Yellow (YELLOW) 11/12/21 11:10 Urine Appearance Clear (CLEAR) 11/12/21 11:10 Urine pH 6.0 (5.0 - 8.0) 11/12/21 11:10 Ur Specific [place] 1.020 (1.000-1.030) 11/12/21 11:10 Urine Protein 1+ (NEGATIVE) 11/12/21 11:10 Urine Glucose (UA) Negative (NEGATIVE) 11/12/21 11:10 Urine Ketones Negative (NEGATIVE) 11/12/21 11:10 Urine Blood 1+ (NEGATIVE) 11/12/21 11:10 Urine Nitrite Negative (NEGATIVE) 11/12/21 11:10 Urine Bilirubin Negative (NEGATIVE) 11/12/21 11:10 Urine Urobilinogen Normal (NORMAL) 11/12/21 11:10 Ur Leukocyte Esterase Negative (NEGATIVE) 11/12/21 11:10 Urine RBC 0-2 /HPF (0-3) 11/12/21 11:10 Urine WBC None seen /HPF (0-5) 11/12/21 11:10 Ur Squamous Epith Cells Negative /HPF (NEGATIVE) 11/12/21 11:10 Amorphous Sediment Trace /HPF (NEGATIVE) 11/12/21 11:10 Urine Bacteria Negative /HPF (NEGATIVE) 11/12/21 11:10 Ur Culture Indicated? No/not indicated 11/12/21 11:10 - Plan (1) Atrial fibrillation with RVR Status: Acute Plan: NORMAL SALINE AT [facility], LEVAQUIN 500MG IV DAILY, CARDIZEM 120MG PO DAILY, AMIODARONE 200MG PO BID, XOPENEX NEB TX TID, LOVENOX 40MG SC DAILY, ECOTRIN 325MG PO DAILY, THE POTASSIUM AND MAGNESIUM PROTOCOLS, AND HIS HOME MEDICATIONS WERE RESUMED. (2) Pneumonia Status: Acute Qualifiers: Pneumonia type: due to unspecified organism Laterality: bilateral Lung location: lower lobe of lung Qualified Code(s): J18.9 - Pneumonia, unspecified organism (3) Shortness of breath Status: Acute (4) Left leg pain Status: Acute (5) Generalized weakness Status: Acute (6) Hypertension Status: Chronic Qualifiers: Hypertension type: primary hypertension Qualified Code(s): I10 - Essential (primary) hypertension (7) Hyperlipidemia Status: Chronic Qualifiers: Hyperlipidemia type: mixed hyperlipidemia Qualified Code(s): E78.2 - Mixed hyperlipidemia (8) Diabetes mellitus, type 2 Status: Chronic Qualifiers: Diabetes mellitus rat exterminator insulin use: without group home use Diabetes mellitus complication status: without complication Qualified Code(s): E11.9 - Type 2 diabetes mellitus without complications (9) BPH (benign prostatic hyperplasia) Status: Chronic Qualifiers: Lower urinary tract symptom presence: symptoms absent Qualified Code(s): N40.0 - Benign prostatic hyperplasia without lower urinary tract symptoms
--- NOTE | 2021-12-26 16:38 | PCM.PROG ---
Progress Note - Progress Note for Day of Date of Exam: 11/15/21 - Subjective Subjective: WAS ADMITTED INPATIENT STATUS FOR TREATMENT OF NEW ONSET A-FIB WITH RVR, PNEUMONIA, AND GENERALIZED WEAKNESS. TODAY, HE IS ALERT AND ORIENTED, LYING IN BED ON MORNING ROUNDS. HE CONTINUES WITH COMPLAINTS OF A NON- PRODUCTIVE COUGH, INTERMITTENT SHORTNESS OF BREATH. HE REPORTS SLIGHT IMPROVEMENT IN SYMPTOMS TODAY. HE REMAINS IN THE INTENSIVE CARE UNIT. HR HAS BEEN 70s-80s THROUGHOUT THE NIGHT. ON EXAMINATION, A-FIB NOTED TO AUSCULTATION WITH NORMAL HR. BILATERAL LUNGS NOTED WITH DIMINISHED LUNG SOUNDS THROUGHOUT. ABDOMEN IS ROUND, SOFT, AND NON-TENDER WITH NORMAL BOWEL SOUNDS NOTED IN ALL QUADRANTS. LLE TENDERNESS NOTED. NO UPPER OR LOWER EXTREMITY EDEMA NOTED. HIS VITALS THIS MORNING ARE: 97.8-92-22-100%-133/58. LABS WERE OBTAINED. ABNORMAL LAB VALUES INCLUDE THE FOLLOWING: RBC 3.24, HGB 9.5, HCT 27.5, PLT COUNT 117, GLUCOSE 112, AST 11, ALT 11, CREATINE KINASE 13, TROPONIN 62.7, TOTAL PROTEIN 5.6, ALBUMIN 2.2. A CHEST XRAY WAS OBTAINED TODAY AND REVEALED: Stable portable chest. HE IS CURRENTLY RECEIVING NORMAL SALINE AT [facility], LEVAQUIN 500MG IV DAILY, CARDIZEM 120MG PO DAILY, AMIODARONE 200MG PO BID, XOPENEX NEB TX TID, LOVENOX 40MG SC DAILY, ECOTRIN 325MG PO DAILY, THE POTASSIUM AND MAGNESIUM PROTOCOLS, AND HIS HOME MEDICATIONS WERE RESUMED. WE WILL CONTINUE WITH CURRENT PLAN OF CARE TODAY. OTHERWISE, WE PLAN TO FOLLOW UP WITH AM LABS AND CHEST XRAY AND CONTINUE TO MONITOR. TIME SPENT ON CLINICAL ASSESSMENT, REVIEWING LABS AND IMAGING, DECISION MAKING, AND DOCUMENTATION GREATER THAN 45 MINUTES. - Past Medical Family Social History Past Med/Fam/Surg Hx: No changes since H&P Allergies: Allergies amoxicillin [From Augmentin] Allergy (Verified 11/11/21 21:01) clavulanic acid [From Augmentin] Allergy (Verified 11/11/21 21:01) codeine Allergy (Verified 07/10/21 17:07) haloperidol [From Haldol] Allergy (Verified 07/10/21 17:07) lactose Allergy (Verified 07/10/21 17:07) promethazine [From Phenergan] Allergy (Verified 07/10/21 17:07) shellfish derived Allergy (Verified 07/10/21 17:07) - Review of Systems ROS: No change since H&P - Vital Signs and I&O's Vital Signs: Temperature 97.9 F Pulse Rate [Bilateral Radial] 101 Pulse Rate 69 Respiratory Rate 22 Blood Pressure [Left Arm] 123/57 Blood Pressure 124/59 O2 Sat by Pulse Oximetry 100 - Physical Exam Oriented: Person, Place Eyes: Normal Ear: Normal Nose: Normal Throat: Normal Respiratory: Generalized, Diminished Cardiovascular: Normal, Irregular : Normal Auscultation: Bowel Sounds: Normal Palpation: Normal Tenderness: Normal Skin: Normal Musculoskeletal: Right, Leg, Tender Psychiatric: Normal Mood Description: Calm Affect: Normal Speech Pattern: Clear, Appropriate - Laboratory and Diagnostics Result Diagrams: 11/18/21 05:20 11/18/21 05:20 Labs: 11/15/21 11:21 Blood Blood Culture - Final 11/17/21 13:10 Sputum - Expectorated Sputum Sputum Culture - Final Methicillin Resis Staph Aureus 11/17/21 13:10 Sputum - Expectorated Sputum - Final 11/15/21 11:15 Blood Blood Culture - Final 11/11/21 19:15 Blood Blood Culture - Final 11/11/21 18:53 Blood Blood Culture - Final Laboratory WBC 5.9 X10^3/uL (3.6-10.0) 11/18/21 05:20 RBC 3.53 X10^6/uL (4.7-6.0) L 11/18/21 05:20 Hgb 10.3 g/dL (13.5-18.0) L 11/18/21 05:20 Hct 29.6 % (42.0-54.0) L 11/18/21 05:20 MCV 83.8 fL (80.0-100.0) 11/18/21 05:20 MCH 29.1 pg (27.0-34.0) 11/18/21 05:20 MCHC 34.7 g/dL (33.0-35.0) 11/18/21 05:20 RDW 14.8 % (11.6-16.5) 11/18/21 05:20 Plt Count 177 X10^3/uL (150.0-450.0) 11/18/21 05:20 MPV 7.8 fL (7.4-11.0) 11/18/21 05:20 Neut % (Auto) 72.3 % (42.0-75.0) 11/18/21 05:20 Lymph % (Auto) 15.4 % (21.0-51.0) L 11/18/21 05:20 [place] % (Auto) 8.3 % (0.0-13.0) 11/18/21 05:20 Eos % (Auto) 3.6 % (0.9-2.9) H 11/18/21 05:20 Baso % (Auto) 0.4 % (0.2-1.0) 11/18/21 05:20 Neut # (Auto) 4.3 x10^3/uL (2.2-4.8) 11/18/21 05:20 Lymph # (Auto) 0.9 X10^3/uL (1.3-2.9) L 11/18/21 05:20 [place] # (Auto) 0.5 x10^3/uL (0.3-0.8) 11/18/21 05:20 Eos # (Auto) 0.2 x10^3/uL (0.0-0.2) 11/18/21 05:20 Baso # (Auto) 0.0 X10^3/uL (0.0-0.1) 11/18/21 05:20 Absolute Nucleated RBC 0.0 /100WBC 11/18/21 05:20 PT 14.5 SECONDS (11.8-14.3) 11/11/21 18:53 INR Target Range - 11/11/21 18:53 INR 1.17 (0.8-1.3) 11/11/21 18:53 APTT 30.0 SECONDS (22.9-36.5) 11/11/21 18:53 PTT Comment - 11/11/21 18:53 D-Dimer 1.59 ug/ml (0.0-0.57) H* 11/12/21 04:40 Sodium 140 mmol/L (136-145) 11/18/21 05:20 Corrected Sodium TNP 11/18/21 05:20 Potassium 3.9 mmol/L (3.5-5.1) 11/18/21 05:20 Chloride 105 mmol/L (98-107) 11/18/21 05:20 Carbon Dioxide 28.1 mmol/L (21-32) 11/18/21 05:20 BUN 8 mg/dL (7-18) 11/18/21 05:20 Creatinine 0.78 mg/dL (0.70-1.30) 11/18/21 05:20 Est GFR (MDRD) Af Amer > 60 (>60) 11/18/21 05:20 Est GFR (MDRD) Non-Af > 60 (>60) 11/18/21 05:20 Glucose 97 mg/dL (65-99) 11/18/21 05:20 Lactic Acid 1.2 mmol/L (0.4-2.0) 11/11/21 18:53 Calcium 8.8 mg/dL (8.5-10.1) 11/18/21 05:20 Corrected Calcium 10.2 mg/dL (8.5-10.1) H 11/18/21 05:20 Magnesium 2.2 mg/dL (1.7-2.9) 11/12/21 04:40 Total Bilirubin 0.40 mg/dL (0.2-1.0) 11/18/21 05:20 AST 16 Units/L (15-37) 11/18/21 05:20 ALT 15 Units/L (12-78) 11/18/21 05:20 Alkaline Phosphatase 79 Units/L (46-116) 11/18/21 05:20 Creatine Kinase 13 Units/L (39-308) L 11/15/21 05:10 CK-MB (CK-2) < 1.0 ng/mL (0-4.0) 11/15/21 05:10 CK/CKMB % Calc 7.7 % (<4) 11/15/21 05:10 Troponin I High Sens 62.7 ng/L (4.0-60.0) H* 11/15/21 05:10 Total Protein 6.1 g/dL (6.4-8.2) L 11/18/21 05:20 Albumin 2.3 g/dL (3.4-5.0) L 11/18/21 05:20 Globulin 3.8 g/dL (2.5-4.5) 11/18/21 05:20 Albumin/Globulin Ratio 0.6 Ratio (1.1-2.1) L 11/18/21 05:20 Specimen Type Clean catch urine 11/12/21 11:10 Urine Color Yellow (YELLOW) 11/12/21 11:10 Urine Appearance Clear (CLEAR) 11/12/21 11:10 Urine pH 6.0 (5.0 - 8.0) 11/12/21 11:10 Ur Specific [place] 1.020 (1.000-1.030) 11/12/21 11:10 Urine Protein 1+ (NEGATIVE) 11/12/21 11:10 Urine Glucose (UA) Negative (NEGATIVE) 11/12/21 11:10 Urine Ketones Negative (NEGATIVE) 11/12/21 11:10 Urine Blood 1+ (NEGATIVE) 11/12/21 11:10 Urine Nitrite Negative (NEGATIVE) 11/12/21 11:10 Urine Bilirubin Negative (NEGATIVE) 11/12/21 11:10 Urine Urobilinogen Normal (NORMAL) 11/12/21 11:10 Ur Leukocyte Esterase Negative (NEGATIVE) 11/12/21 11:10 Urine RBC 0-2 /HPF (0-3) 11/12/21 11:10 Urine WBC None seen /HPF (0-5) 11/12/21 11:10 Ur Squamous Epith Cells Negative /HPF (NEGATIVE) 11/12/21 11:10 Amorphous Sediment Trace /HPF (NEGATIVE) 11/12/21 11:10 Urine Bacteria Negative /HPF (NEGATIVE) 11/12/21 11:10 Ur Culture Indicated? No/not indicated 11/12/21 11:10 - Plan (1) Atrial fibrillation with RVR Status: Acute Plan: NORMAL SALINE AT [facility], LEVAQUIN 500MG IV DAILY, CARDIZEM 120MG PO DAILY, AMIODARONE 200MG PO BID, XOPENEX NEB TX TID, LOVENOX 40MG SC DAILY, ECOTRIN 325MG PO DAILY, THE POTASSIUM AND MAGNESIUM PROTOCOLS, AND HIS HOME MEDICATIONS WERE RESUMED. (2) Pneumonia Status: Acute Qualifiers: Pneumonia type: due to unspecified organism Laterality: bilateral Lung location: lower lobe of lung Qualified Code(s): J18.9 - Pneumonia, unspecified organism (3) Shortness of breath Status: Acute (4) Left leg pain Status: Acute (5) Generalized weakness Status: Acute (6) Hypertension Status: Chronic Qualifiers: Hypertension type: primary hypertension Qualified Code(s): I10 - Essential (primary) hypertension (7) Hyperlipidemia Status: Chronic Qualifiers: Hyperlipidemia type: mixed hyperlipidemia Qualified Code(s): E78.2 - Mixed hyperlipidemia (8) Diabetes mellitus, type 2 Status: Chronic Qualifiers: Diabetes mellitus termite helper insulin use: without termite helper use Diabetes mellitus complication status: without complication Qualified Code(s): E11.9 - Type 2 diabetes mellitus without complications (9) BPH (benign prostatic hyperplasia) Status: Chronic Qualifiers: Lower urinary tract symptom presence: symptoms absent Qualified Code(s): N40.0 - Benign prostatic hyperplasia without lower urinary tract symptoms
--- NOTE | 2021-12-26 16:44 | PCM.PROG ---
Progress Note - Progress Note for Day of Date of Exam: 11/16/21 - Subjective Subjective: WAS ADMITTED INPATIENT STATUS FOR TREATMENT OF NEW ONSET A-FIB WITH RVR, PNEUMONIA, AND GENERALIZED WEAKNESS. TODAY, HE IS ALERT AND ORIENTED, LYING IN BED ON MORNING ROUNDS. HE CONTINUES WITH COMPLAINTS OF A NON- PRODUCTIVE COUGH, INTERMITTENT SHORTNESS OF BREATH. HE REPORTS SLIGHT IMPROVEMENT IN SYMPTOMS TODAY. HE ALSO DENIES A BOWEL MOVEMENT IN SEVERAL DAYS. HE REMAINS IN THE INTENSIVE CARE UNIT. ON EXAMINATION, A-FIB NOTED TO AUSCULTATION WITH NORMAL HR. BILATERAL LUNGS NOTED WITH DIMINISHED LUNG SOUNDS THROUGHOUT. ABDOMEN IS ROUND, SOFT, AND NON-TENDER WITH HYPOACTIVE BOWEL SOUNDS NOTED IN ALL QUADRANTS. NO UPPER OR LOWER EXTREMITY EDEMA NOTED. HIS VITALS THIS MORNING ARE: 97.1-986-80-100%-135/65. LABS WERE OBTAINED. ABNORMAL LAB VALUES INCLUDE THE FOLLOWING: RBC 3.21, HGB 9.2, HCT 27.1, PLT COUNT 127, GLUCOSE 100, AST 11, TERRENCE 11, TOTAL PROTEIN 5.5, ALBUMIN 2.1. A CHEST XRAY WAS OBTAINED TODAY AND REVEALED: Improvement aeration at the left base. Persistent right lower lobe radiopacity. Skin fold versus pneumothorax in the right apex. Short-term follow- up is recommended. HE IS CURRENTLY RECEIVING NORMAL SALINE AT KVO, LEVAQUIN 500MG IV DAILY, CARDIZEM 120MG PO DAILY, AMIODARONE 200MG PO BID, XOPENEX NEB TX TID, LOVENOX 40MG SC DAILY, ECOTRIN 325MG PO DAILY, THE POTASSIUM AND MAGNESIUM PROTOCOLS, AND HIS HOME MEDICATIONS WERE RESUMED. WE WILL CONTINUE WITH CURRENT PLAN OF CARE TODAY AND ADD MILK OF MAGNESIA 30ML PO QID PRN AND MIRALAX 17G PO HS. OTHERWISE, WE PLAN TO FOLLOW UP WITH AM LABS AND CHEST XRAY AND CONTINUE TO MONITOR. TIME SPENT ON CLINICAL ASSESSMENT, REVIEWING LABS AND IMAGING, DECISION MAKING, AND DOCUMENTATION GREATER THAN 45 MINUTES. - Past Medical Family Social History Past Med/Fam/Surg Hx: No changes since H&P Allergies: Allergies amoxicillin [From Augmentin] Allergy (Verified 11/11/21 21:01) clavulanic acid [From Augmentin] Allergy (Verified 11/11/21 21:01) codeine Allergy (Verified 07/10/21 17:07) haloperidol [From Haldol] Allergy (Verified 07/10/21 17:07) lactose Allergy (Verified 07/10/21 17:07) promethazine [From Phenergan] Allergy (Verified 07/10/21 17:07) shellfish derived Allergy (Verified 07/10/21 17:07) - Review of Systems ROS: No change since H&P - Vital Signs and I&O's Vital Signs: Temperature 97.9 F Pulse Rate [Bilateral Radial] 101 Pulse Rate 69 Respiratory Rate 22 Blood Pressure [Left Arm] 123/57 Blood Pressure 124/59 O2 Sat by Pulse Oximetry 100 - Physical Exam Oriented: Person, Place Eyes: Normal Ear: Normal Nose: Normal Throat: Normal Respiratory: Generalized, Diminished Cardiovascular: Normal, Irregular : Normal Auscultation: Bowel Sounds: Decreased Palpation: Normal Tenderness: Normal Skin: Normal Musculoskeletal: Right, Leg, Tender Psychiatric: Normal Mood Description: Calm Affect: Normal Speech Pattern: Clear, Appropriate - Laboratory and Diagnostics Result Diagrams: 11/18/21 05:20 11/18/21 05:20 Labs: 11/15/21 11:21 Blood Blood Culture - Final 11/17/21 13:10 Sputum - Expectorated Sputum Sputum Culture - Final Methicillin Resis Staph Aureus 11/17/21 13:10 Sputum - Expectorated Sputum - Final 11/15/21 11:15 Blood Blood Culture - Final 11/11/21 19:15 Blood Blood Culture - Final 11/11/21 18:53 Blood Blood Culture - Final Laboratory WBC 5.9 X10^3/uL (3.6-10.0) 11/18/21 05:20 RBC 3.53 X10^6/uL (4.7-6.0) L 11/18/21 05:20 Hgb 10.3 g/dL (13.5-18.0) L 11/18/21 05:20 Hct 29.6 % (42.0-54.0) L 11/18/21 05:20 MCV 83.8 fL (80.0-100.0) 11/18/21 05:20 MCH 29.1 pg (27.0-34.0) 11/18/21 05:20 MCHC 34.7 g/dL (33.0-35.0) 11/18/21 05:20 RDW 14.8 % (11.6-16.5) 11/18/21 05:20 Plt Count 177 X10^3/uL (150.0-450.0) 11/18/21 05:20 MPV 7.8 fL (7.4-11.0) 11/18/21 05:20 Neut % (Auto) 72.3 % (42.0-75.0) 11/18/21 05:20 Lymph % (Auto) 15.4 % (21.0-51.0) L 11/18/21 05:20 [place] % (Auto) 8.3 % (0.0-13.0) 11/18/21 05:20 Eos % (Auto) 3.6 % (0.9-2.9) H 11/18/21 05:20 Baso % (Auto) 0.4 % (0.2-1.0) 11/18/21 05:20 Neut # (Auto) 4.3 x10^3/uL (2.2-4.8) 11/18/21 05:20 Lymph # (Auto) 0.9 X10^3/uL (1.3-2.9) L 11/18/21 05:20 [place] # (Auto) 0.5 x10^3/uL (0.3-0.8) 11/18/21 05:20 Eos # (Auto) 0.2 x10^3/uL (0.0-0.2) 11/18/21 05:20 Baso # (Auto) 0.0 X10^3/uL (0.0-0.1) 11/18/21 05:20 Absolute Nucleated RBC 0.0 /100WBC 11/18/21 05:20 PT 14.5 SECONDS (11.8-14.3) 11/11/21 18:53 INR Target Range - 11/11/21 18:53 INR 1.17 (0.8-1.3) 11/11/21 18:53 APTT 30.0 SECONDS (22.9-36.5) 11/11/21 18:53 PTT Comment - 11/11/21 18:53 D-Dimer 1.59 ug/ml (0.0-0.57) H* 11/12/21 04:40 Sodium 140 mmol/L (136-145) 11/18/21 05:20 Corrected Sodium TNP 11/18/21 05:20 Potassium 3.9 mmol/L (3.5-5.1) 11/18/21 05:20 Chloride 105 mmol/L (98-107) 11/18/21 05:20 Carbon Dioxide 28.1 mmol/L (21-32) 11/18/21 05:20 BUN 8 mg/dL (7-18) 11/18/21 05:20 Creatinine 0.78 mg/dL (0.70-1.30) 11/18/21 05:20 Est GFR (MDRD) Af Amer > 60 (>60) 11/18/21 05:20 Est GFR (MDRD) Non-Af > 60 (>60) 11/18/21 05:20 Glucose 97 mg/dL (65-99) 11/18/21 05:20 Lactic Acid 1.2 mmol/L (0.4-2.0) 11/11/21 18:53 Calcium 8.8 mg/dL (8.5-10.1) 11/18/21 05:20 Corrected Calcium 10.2 mg/dL (8.5-10.1) H 11/18/21 05:20 Magnesium 2.2 mg/dL (1.7-2.9) 11/12/21 04:40 Total Bilirubin 0.40 mg/dL (0.2-1.0) 11/18/21 05:20 AST 16 Units/L (15-37) 11/18/21 05:20 ALT 15 Units/L (12-78) 11/18/21 05:20 Alkaline Phosphatase 79 Units/L (46-116) 11/18/21 05:20 Creatine Kinase 13 Units/L (39-308) L 11/15/21 05:10 CK-MB (CK-2) < 1.0 ng/mL (0-4.0) 11/15/21 05:10 CK/CKMB % Calc 7.7 % (<4) 11/15/21 05:10 Troponin I High Sens 62.7 ng/L (4.0-60.0) H* 11/15/21 05:10 Total Protein 6.1 g/dL (6.4-8.2) L 11/18/21 05:20 Albumin 2.3 g/dL (3.4-5.0) L 11/18/21 05:20 Globulin 3.8 g/dL (2.5-4.5) 11/18/21 05:20 Albumin/Globulin Ratio 0.6 Ratio (1.1-2.1) L 11/18/21 05:20 Specimen Type Clean catch urine 11/12/21 11:10 Urine Color Yellow (YELLOW) 11/12/21 11:10 Urine Appearance Clear (CLEAR) 11/12/21 11:10 Urine pH 6.0 (5.0 - 8.0) 11/12/21 11:10 Ur Specific [place] 1.020 (1.000-1.030) 11/12/21 11:10 Urine Protein 1+ (NEGATIVE) 11/12/21 11:10 Urine Glucose (UA) Negative (NEGATIVE) 11/12/21 11:10 Urine Ketones Negative (NEGATIVE) 11/12/21 11:10 Urine Blood 1+ (NEGATIVE) 11/12/21 11:10 Urine Nitrite Negative (NEGATIVE) 11/12/21 11:10 Urine Bilirubin Negative (NEGATIVE) 11/12/21 11:10 Urine Urobilinogen Normal (NORMAL) 11/12/21 11:10 Ur Leukocyte Esterase Negative (NEGATIVE) 11/12/21 11:10 Urine RBC 0-2 /HPF (0-3) 11/12/21 11:10 Urine WBC None seen /HPF (0-5) 11/12/21 11:10 Ur Squamous Epith Cells Negative /HPF (NEGATIVE) 11/12/21 11:10 Amorphous Sediment Trace /HPF (NEGATIVE) 11/12/21 11:10 Urine Bacteria Negative /HPF (NEGATIVE) 11/12/21 11:10 Ur Culture Indicated? No/not indicated 11/12/21 11:10 - Plan (1) Atrial fibrillation with RVR Status: Acute Plan: NORMAL SALINE AT KVO, LEVAQUIN 500MG IV DAILY, CARDIZEM 120MG PO DAILY, AMIODARONE 200MG PO BID, XOPENEX NEB TX TID, LOVENOX 40MG SC DAILY, ECOTRIN 325MG PO DAILY, THE POTASSIUM AND MAGNESIUM PROTOCOLS, AND HIS HOME MEDICATIONS WERE RESUMED. (2) Pneumonia Status: Acute Qualifiers: Pneumonia type: due to unspecified organism Laterality: bilateral Lung location: lower lobe of lung Qualified Code(s): J18.9 - Pneumonia, unspecified organism (3) Constipation Status: Acute Qualifiers: Constipation type: slow transit constipation Qualified Code(s): K59.01 - Slow transit constipation Plan: MILK OF MAGNESIA, COLACE, MIRALAX (4) Shortness of breath Status: Acute (5) Left leg pain Status: Resolved (6) Generalized weakness Status: Acute (7) Hypertension Status: Chronic Qualifiers: Hypertension type: primary hypertension Qualified Code(s): I10 - Essential (primary) hypertension (8) Hyperlipidemia Status: Chronic Qualifiers: Hyperlipidemia type: mixed hyperlipidemia Qualified Code(s): E78.2 - Mixed hyperlipidemia (9) Diabetes mellitus, type 2 Status: Chronic 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
--- NOTE | 2021-12-26 16:48 | PCM.PROG ---
Progress Note - Progress Note for Day of Date of Exam: 11/17/21 - Subjective Subjective: WAS ADMITTED INPATIENT STATUS FOR TREATMENT OF NEW ONSET A-FIB WITH RVR, PNEUMONIA, AND GENERALIZED WEAKNESS. TODAY, HE IS ALERT AND ORIENTED, LYING IN BED ON MORNING ROUNDS. HE CONTINUES WITH COMPLAINTS OF A NON- PRODUCTIVE COUGH, INTERMITTENT SHORTNESS OF BREATH. HE REPORTS SLIGHT IMPROVEMENT IN SYMPTOMS TODAY. HE CONTINUES TO DENY A BOWEL MOVEMENT IN SEVERAL DAYS. HE REMAINS IN THE INTENSIVE CARE UNIT. ON EXAMINATION, A-FIB NOTED TO AUSCULTATION WITH NORMAL HR. BILATERAL LUNGS NOTED WITH DIMINISHED LUNG SOUNDS THROUGHOUT. ABDOMEN IS ROUND, SOFT, AND NON-TENDER WITH HYPOACTIVE BOWEL SOUNDS NOTED IN ALL QUADRANTS. NO UPPER OR LOWER EXTREMITY EDEMA NOTED. HIS VITALS THIS MORNING ARE: 98.7-89-20-99%-150/79. LABS WERE OBTAINED. ABNORMAL LAB VALUES INCLUDE THE FOLLOWING: RBC 3.29, HGB 9.5, HCT 27.6, AST 12, TOTAL PROTEIN 5.8, ALBUMIN 2.2. A CHEST XRAY WAS OBTAINED TODAY AND REVEALED: Increasing bilateral lower lobe pneumonia. No pneumothorax or other extrapulmonary air identified. HE IS CURRENTLY RECEIVING NORMAL SALINE AT KVO, LEVAQUIN 500MG IV DAILY, CARDIZEM 120MG PO DAILY, AMIODARONE 200MG PO BID, XOPENEX NEB TX TID, LOVENOX 40MG SC DAILY, ECOTRIN 325MG PO DAILY, THE POTASSIUM AND MAGNESIUM PROTOCOLS, MILK OF MAGNESIA PRN, MIRALAX AT BEDTIME, AND HIS HOME MEDICATIONS WERE RESUMED. WE WILL ADD KLONOPIN 0.5MG PO HS DUE TO COMPLAINTS OF NOT BEING ABLE TO REST AT NIGHT. OTHERWISE, WE PLAN TO FOLLOW UP WITH AM LABS AND CHEST XRAY AND CONTINUE TO MONITOR. TIME SPENT ON CLINICAL ASSESSMENT, REVIEWING LABS AND IMAGING, DECISION MAKING, AND DOCUMENTATION GREATER THAN 45 MINUTES. - Past Medical Family Social History Past Med/Fam/Surg Hx: No changes since H&P Allergies: Allergies amoxicillin [From Augmentin] Allergy (Verified 11/11/21 21:01) clavulanic acid [From Augmentin] Allergy (Verified 11/11/21 21:01) codeine Allergy (Verified 07/10/21 17:07) haloperidol [From Haldol] Allergy (Verified 07/10/21 17:07) lactose Allergy (Verified 07/10/21 17:07) promethazine [From Phenergan] Allergy (Verified 07/10/21 17:07) shellfish derived Allergy (Verified 07/10/21 17:07) - Review of Systems ROS: No change since H&P - Vital Signs and I&O's Vital Signs: Temperature 97.9 F Pulse Rate [Bilateral Radial] 101 Pulse Rate 69 Respiratory Rate 22 Blood Pressure [Left Arm] 123/57 Blood Pressure 124/59 O2 Sat by Pulse Oximetry 100 - Physical Exam Oriented: Person, Place Eyes: Normal Ear: Normal Nose: Normal Throat: Normal Respiratory: Generalized, Diminished Cardiovascular: Normal, Irregular : Normal Auscultation: Bowel Sounds: Decreased Tenderness: Normal Skin: Normal Musculoskeletal: Right, Leg, Tender Psychiatric: Normal Mood Description: Calm Affect: Normal Speech Pattern: Clear, Appropriate - Laboratory and Diagnostics Result Diagrams: 11/18/21 05:20 11/18/21 05:20 Labs: 11/15/21 11:21 Blood Blood Culture - Final 11/17/21 13:10 Sputum - Expectorated Sputum Sputum Culture - Final Methicillin Resis Staph Aureus 11/17/21 13:10 Sputum - Expectorated Sputum - Final 11/15/21 11:15 Blood Blood Culture - Final 11/11/21 19:15 Blood Blood Culture - Final 11/11/21 18:53 Blood Blood Culture - Final Laboratory WBC 5.9 X10^3/uL (3.6-10.0) 11/18/21 05:20 RBC 3.53 X10^6/uL (4.7-6.0) L 11/18/21 05:20 Hgb 10.3 g/dL (13.5-18.0) L 11/18/21 05:20 Hct 29.6 % (42.0-54.0) L 11/18/21 05:20 MCV 83.8 fL (80.0-100.0) 11/18/21 05:20 MCH 29.1 pg (27.0-34.0) 11/18/21 05:20 MCHC 34.7 g/dL (33.0-35.0) 11/18/21 05:20 RDW 14.8 % (11.6-16.5) 11/18/21 05:20 Plt Count 177 X10^3/uL (150.0-450.0) 11/18/21 05:20 MPV 7.8 fL (7.4-11.0) 11/18/21 05:20 Neut % (Auto) 72.3 % (42.0-75.0) 11/18/21 05:20 Lymph % (Auto) 15.4 % (21.0-51.0) L 11/18/21 05:20 [place] % (Auto) 8.3 % (0.0-13.0) 11/18/21 05:20 Eos % (Auto) 3.6 % (0.9-2.9) H 11/18/21 05:20 Baso % (Auto) 0.4 % (0.2-1.0) 11/18/21 05:20 Neut # (Auto) 4.3 x10^3/uL (2.2-4.8) 11/18/21 05:20 Lymph # (Auto) 0.9 X10^3/uL (1.3-2.9) L 11/18/21 05:20 [place] # (Auto) 0.5 x10^3/uL (0.3-0.8) 11/18/21 05:20 Eos # (Auto) 0.2 x10^3/uL (0.0-0.2) 11/18/21 05:20 Baso # (Auto) 0.0 X10^3/uL (0.0-0.1) 11/18/21 05:20 Absolute Nucleated RBC 0.0 /100WBC 11/18/21 05:20 PT 14.5 SECONDS (11.8-14.3) 11/11/21 18:53 INR Target Range - 11/11/21 18:53 INR 1.17 (0.8-1.3) 11/11/21 18:53 APTT 30.0 SECONDS (22.9-36.5) 11/11/21 18:53 PTT Comment - 11/11/21 18:53 D-Dimer 1.59 ug/ml (0.0-0.57) H* 11/12/21 04:40 Sodium 140 mmol/L (136-145) 11/18/21 05:20 Corrected Sodium TNP 11/18/21 05:20 Potassium 3.9 mmol/L (3.5-5.1) 11/18/21 05:20 Chloride 105 mmol/L (98-107) 11/18/21 05:20 Carbon Dioxide 28.1 mmol/L (21-32) 11/18/21 05:20 BUN 8 mg/dL (7-18) 11/18/21 05:20 Creatinine 0.78 mg/dL (0.70-1.30) 11/18/21 05:20 Est GFR (MDRD) Af Amer > 60 (>60) 11/18/21 05:20 Est GFR (MDRD) Non-Af > 60 (>60) 11/18/21 05:20 Glucose 97 mg/dL (65-99) 11/18/21 05:20 Lactic Acid 1.2 mmol/L (0.4-2.0) 11/11/21 18:53 Calcium 8.8 mg/dL (8.5-10.1) 11/18/21 05:20 Corrected Calcium 10.2 mg/dL (8.5-10.1) H 11/18/21 05:20 Magnesium 2.2 mg/dL (1.7-2.9) 11/12/21 04:40 Total Bilirubin 0.40 mg/dL (0.2-1.0) 11/18/21 05:20 AST 16 Units/L (15-37) 11/18/21 05:20 ALT 15 Units/L (12-78) 11/18/21 05:20 Alkaline Phosphatase 79 Units/L (46-116) 11/18/21 05:20 Creatine Kinase 13 Units/L (39-308) L 11/15/21 05:10 CK-MB (CK-2) < 1.0 ng/mL (0-4.0) 11/15/21 05:10 CK/CKMB % Calc 7.7 % (<4) 11/15/21 05:10 Troponin I High Sens 62.7 ng/L (4.0-60.0) H* 11/15/21 05:10 Total Protein 6.1 g/dL (6.4-8.2) L 11/18/21 05:20 Albumin 2.3 g/dL (3.4-5.0) L 11/18/21 05:20 Globulin 3.8 g/dL (2.5-4.5) 11/18/21 05:20 Albumin/Globulin Ratio 0.6 Ratio (1.1-2.1) L 11/18/21 05:20 Specimen Type Clean catch urine 11/12/21 11:10 Urine Color Yellow (YELLOW) 11/12/21 11:10 Urine Appearance Clear (CLEAR) 11/12/21 11:10 Urine pH 6.0 (5.0 - 8.0) 11/12/21 11:10 Ur Specific [place] 1.020 (1.000-1.030) 11/12/21 11:10 Urine Protein 1+ (NEGATIVE) 11/12/21 11:10 Urine Glucose (UA) Negative (NEGATIVE) 11/12/21 11:10 Urine Ketones Negative (NEGATIVE) 11/12/21 11:10 Urine Blood 1+ (NEGATIVE) 11/12/21 11:10 Urine Nitrite Negative (NEGATIVE) 11/12/21 11:10 Urine Bilirubin Negative (NEGATIVE) 11/12/21 11:10 Urine Urobilinogen Normal (NORMAL) 11/12/21 11:10 Ur Leukocyte Esterase Negative (NEGATIVE) 11/12/21 11:10 Urine RBC 0-2 /HPF (0-3) 11/12/21 11:10 Urine WBC None seen /HPF (0-5) 11/12/21 11:10 Ur Squamous Epith Cells Negative /HPF (NEGATIVE) 11/12/21 11:10 Amorphous Sediment Trace /HPF (NEGATIVE) 11/12/21 11:10 Urine Bacteria Negative /HPF (NEGATIVE) 11/12/21 11:10 Ur Culture Indicated? No/not indicated 11/12/21 11:10 - Plan (1) Atrial fibrillation with RVR Status: Acute Plan: NORMAL SALINE AT KVO, LEVAQUIN 500MG IV DAILY, CARDIZEM 120MG PO DAILY, AMIODARONE 200MG PO BID, XOPENEX NEB TX TID, LOVENOX 40MG SC DAILY, ECOTRIN 325MG PO DAILY, THE POTASSIUM AND MAGNESIUM PROTOCOLS, AND HIS HOME MEDICATIONS WERE RESUMED. (2) Pneumonia Status: Acute Qualifiers: Pneumonia type: due to unspecified organism Laterality: bilateral Lung lo cation: lower lobe of lung Qualified Code(s): J18.9 - Pneumonia, unspecified organism (3) Constipation Status: Acute Qualifiers: Constipation type: slow transit constipation Qualified Code(s): K59.01 - Slow transit constipation Plan: MILK OF MAGNESIA, COLACE, MIRALAX (4) Shortness of breath Status: Acute (5) Left leg pain Status: Resolved (6) Generalized weakness Status: Acute (7) Hypertension Status: Chronic Qualifiers: Hypertension type: primary hypertension Qualified Code(s): I10 - Essential (primary) hypertension (8) Hyperlipidemia Status: Chronic Qualifiers: Hyperlipidemia type: mixed hyperlipidemia Qualified Code(s): E78.2 - Mixed hyperlipidemia (9) Diabetes mellitus, type 2 Status: Chronic Qualifiers: Diabetes mellitus correction insulin use: without correction use Diabetes mellitus complication status: without complication Qualified Code(s): E11.9 - Type 2 diabetes mellitus without complications (10) BPH (benign prostatic hyperplasia) Status: Chronic Qualifiers: Lower urinary tract symptom presence: symptoms absent Qualified Code(s): N40.0 - Benign prostatic hyperplasia without lower urinary tract symptoms
== END 2021-11-18 14:24 | disposition home health service (06) | DRG 308 ==
LOC: ER 17:08 → ICU 20:39
PROVIDERS: ADMIT Obstetrics & Gynecology Obstetrics; ATTEND Internal Medicine
DX: E78.2 Mixed hyperlipidemia; I10 Essential (primary) hypertension; I48.0 Paroxysmal atrial fibrillation; J15.212 Pneumonia due to Methicillin resistant Staphylococcus aureus; R06.02 Shortness of breath; R94.31 Abnormal electrocardiogram [ECG] [EKG]; R26.89 Other abnormalities of gait and mobility; I25.10 Atherosclerotic heart disease of native coronary artery without angina pectoris; M79.605 Pain in left leg

== ENCOUNTER 2022-03-13 16:15 | Observation (INO) ==
[2022-03-13 19:24] LABS: BASOPHILS # (AUTO) 0.2 X10^3/uL (0.0-0.1); BASOPHILS % (AUTO) 3.8 % (0.2-1.0); EOSINOPHILS # (AUTO) 0.1 x10^3/uL (0.0-0.2); EOSINOPHILS % (AUTO) 2.8 % (0.9-2.9); HEMATOCRIT 31.7 % (42.0-54.0); LYMPHOCYTES # (AUTO) 0.5 X10^3/uL (1.3-2.9); LYMPHOCYTES % (AUTO) 9.7 % (21.0-51.0); MEAN CORPUSCULAR HEMOGLOBIN 30.1 pg (27.0-34.0); MEAN CORPUSCULAR HGB CONC 34.6 g/dL (33.0-35.0); MEAN PLATELET VOLUME 7.5 fL (7.4-11.0); MONOCYTES # (AUTO) 0.5 x10^3/uL (0.3-0.8); MONOCYTES % (AUTO) 8.8 % (0.0-13.0); NEUTROPHILS % (AUTO) 74.9 % (42.0-75.0); RED BLOOD COUNT 3.65 X10^6/uL (4.7-6.0); RED CELL DISTRIBUTION WIDTH 15.7 % (11.6-16.5); WHITE BLOOD COUNT 5.4 X10^3/uL (3.6-10.0)
[2022-03-13 19:37] LABS: ALANINE AMINOTRANSFERASE 25 Units/L (12-78); ALBUMIN 3.2 g/dL (3.4-5.0); ALKALINE PHOSPHATASE 86 Units/L (46-116); ASPARTATE AMINO TRANSFERASE 18 Units/L (15-37); BLOOD UREA NITROGEN 16 mg/dL (7-18); CALCIUM 8.7 mg/dL (8.5-10.1); CARBON DIOXIDE 30.6 mmol/L (21-32); CHLORIDE 104 mmol/L (98-107); COR CA(FOR HYPOALB) 9.3 mg/dL (8.5-10.1); COR NA(FOR HYPERGLY) 139 mmol/L (136-145); CREATININE 1.12 mg/dL (0.70-1.30); SODIUM 139 mmol/L (136-145); TOTAL PROTEIN 6.5 g/dL (6.4-8.2); eGFR NON BLACK RACES > 60 (>60)
[2022-03-13] MEDS: COLACE CAP 100 MG PO SCH (20:05)
[2022-03-13] MEDS: MIRALAX POWDER (1 DOSE 17 G) PO SCH (20:15)
[2022-03-13] MEDS: MILK OF MAGNESIA PO SCH (20:15)
[2022-03-13] MEDS: NS 1,000 ML IV 1,000 ML IV SCH (20:15)
[2022-03-13] MEDS ORDERED: DESYREL PO SCH (21:00)
[2022-03-13] MEDS ORDERED: VITAMIN B-12 PO SCH (21:00)
[2022-03-13] MEDS ORDERED: ZESTRIL TAB 5 MG PO SCH (21:00)
[2022-03-13] MEDS ORDERED: ZOCOR TAB 40 MG PO SCH (21:00)
[2022-03-13] MEDS ORDERED: CARDURA PO SCH (21:00)
--- NOTE | 2022-03-13 22:18 | RAD ---
HISTORYconstipation Relevant Clinical InformationSTUDYKUBCOMPARISONNone br.br.br nondistended loops of large and small bowel. There is a moderate amount of fecal material throughout the colon. No pathological soft tissue mass or calcification can be observed. The bony structures are grossly intact.IMPRESSIONNo evidence for acute abdominal pathology identified.Electronically signed by: Juan Drew (Mar 13, 2022 22:15:38)
[2022-03-13] MEDS: CORDARONE TAB 200 MG PO SCH (22:19)
[2022-03-13] MEDS: FESOTERODINE 4 MG PO SCH (22:20)
[2022-03-13] MEDS: COENZYME Q10 100 MG PO SCH (22:21)
[2022-03-13] MEDS: EXELON PO SCH (22:21)
[2022-03-14] MEDS ORDERED: TYLENOL 325 MG TAB PO PRN (03:39)
[2022-03-14] MEDS: CORDARONE TAB 200 MG PO SCH (06:01)
[2022-03-14 06:36] LABS: BASOPHILS % (AUTO) 0.3 % (0.2-1.0); EOSINOPHILS # (AUTO) 0.3 x10^3/uL (0.0-0.2); EOSINOPHILS % (AUTO) 3.5 % (0.9-2.9); HEMATOCRIT 29.4 % (42.0-54.0); HEMOGLOBIN 10.1 g/dL (13.5-18.0); LYMPHOCYTES # (AUTO) 1.1 X10^3/uL (1.3-2.9); LYMPHOCYTES % (AUTO) 15.8 % (21.0-51.0); MEAN CORPUSCULAR HEMOGLOBIN 29.6 pg (27.0-34.0); MEAN CORPUSCULAR HGB CONC 34.4 g/dL (33.0-35.0); MEAN PLATELET VOLUME 7.8 fL (7.4-11.0); MONOCYTES # (AUTO) 0.7 x10^3/uL (0.3-0.8); MONOCYTES % (AUTO) 9.6 % (0.0-13.0); NEUTROPHILS # (AUTO) 5.1 x10^3/uL (2.2-4.8); NEUTROPHILS % (AUTO) 70.8 % (42.0-75.0); RED BLOOD COUNT 3.42 X10^6/uL (4.7-6.0); RED CELL DISTRIBUTION WIDTH 15.4 % (11.6-16.5); WHITE BLOOD COUNT 7.2 X10^3/uL (3.6-10.0)
--- NOTE | 2022-03-14 06:38 | RAD ---
HISTORYAbdominal pain, [id number]/04/2022 FINDINGSThe abdominal gas pattern is nonspecific. Gas is seen within not significantly dilated small and large bowel. No abnormal masses or significant abnormal calcifications are identified. There is a moderately large amount of stool in the right colon unchanged from the prior examination. Regional skeleton is intact.IMPRESSIONNonspecific bowel gas patternElectronically signed by: MELECIO SHAW (Mar 14, 2022 06:36:42)
[2022-03-14 06:46] LABS: ALANINE AMINOTRANSFERASE 24 Units/L (12-78); ALBUMIN 3.1 g/dL (3.4-5.0); ALKALINE PHOSPHATASE 80 Units/L (46-116); ASPARTATE AMINO TRANSFERASE 15 Units/L (15-37); BLOOD UREA NITROGEN 14 mg/dL (7-18); CALCIUM 8.7 mg/dL (8.5-10.1); CARBON DIOXIDE 30.4 mmol/L (21-32); CHLORIDE 105 mmol/L (98-107); COR CA(FOR HYPOALB) 9.4 mg/dL (8.5-10.1); CREATININE 1.06 mg/dL (0.70-1.30); SODIUM 140 mmol/L (136-145); TOTAL PROTEIN 6.1 g/dL (6.4-8.2); eGFR NON BLACK RACES > 60 (>60)
[2022-03-14] MEDS ORDERED: LEXAPRO ONE (08:45)
[2022-03-14] MEDS ORDERED: PATIENT'S HOME MEDICATION (Aspirin 81 mg Tablet) PO SCH (09:00)
[2022-03-14] MEDS ORDERED: LEXAPRO PO SCH (09:00)
[2022-03-14] MEDS ORDERED: ASPIRIN 81 MG CHEWTAB PO SCH (09:00)
[2022-03-14] MEDS ORDERED: CARDIZEM CD 120 MG 24-HR PO SCH (09:00)
[2022-03-14] MEDS ORDERED: VITAMIN D3 25 mcg (1,000 UNITS) PO SCH (09:00)
[2022-03-14] MEDS ORDERED: ESCITALOPRAM OXALATE 20 MG PO SCH (09:00)
[2022-03-14] MEDS: NS 1,000 ML IV 1,000 ML IV SCH ×2 (09:12→20:55)
[2022-03-14] MEDS: MIRALAX POWDER (1 DOSE 17 G) PO SCH (09:14)
[2022-03-14] MEDS: MILK OF MAGNESIA PO SCH ×2 (09:14→20:00)
[2022-03-14] MEDS: COLACE CAP 100 MG PO SCH ×2 (09:14→20:00)
[2022-03-14] MEDS: EXELON PO SCH (09:14)
[2022-03-14] MEDS: PRASTERONE 25 MG PO SCH (09:15)
[2022-03-14] MEDS ORDERED: CITROMA PO ONE (10:02)
[2022-03-14] MEDS: HEMOCYTE-PLUS PO SCH (11:22)
[2022-03-14] MEDS ORDERED: MINERAL OIL PO SCH (12:00)
--- NOTE | 2022-03-14 12:20 | DR.H&P ---
H&P - History & Physical for Day of: H&P Date: 03/13/22 - Chief Complaint Chief Complaint: WAS SEEN IN THE OFFICE FOR COMPLAINTS OF LLQ ABDOMINAL PAIN AND CONSTIPATION. SYMPTOMS STARTED ON 03/03/22. HE HAS BEEN TAKING MILK OF MAGNESIA AND COLACE, BUT HAS BEEN UNABLE TO PRODUCE A BOWEL MOVEMENT. HE DESCRIBES PAIN CRAMPING, INTERMITTENT, AND RATED IT A 5/10. HE REPORTS THAT PAIN RADIATES TO THE BACK. HE ALSO COMPLAINS OF FREQUENT URINATION. HE WAS RECENTLY STARTED ON TOVIAZ 4MG HS BY HIS UROLOGIST. HIS PMH INCLUDES: CAD, HTN, SLEEP APNEA, ANEMIA, HYPERLIPIDEMIA, A-FIB, DM II, DEPRESSION, CARDIAC STENTS, CHOLECYSTECTOMY, PROSTATE SURGERY. DECISION WAS MADE TO ADMIT PATIENT TO THE HOSPITAL FOR FURTHER EVALUATION AND TREATMENT OF LLQ ABDOMINAL PAIN AND CONSTIPATION. ON ARRIVAL TO THE HOSPITAL, VITALS WERE: 97.2-72-18-99%-154/75. LABS WERE OBTAINED. WBC 5.4, RBC 3.65, HGB 11.0, HCT 31.7, PLT COUNT 137, SODIUM 139, POTASSIUM 4.6, CHLORIDE 104, BUN 16, CREATININE 1.12, GLUCOSE 118, CALCIUM 8.7, AST 18, ALT 25, ALK PHOS 86, TOTAL PROTEIN 6.5, ALBUMIN 3.2. COVID-19 NEGATIVE. A KUB WAS OBTAINED AND REVEALED: nondistended loops of large and small bowel. There is a moderate amount of fecal material throughout the colon. No pathological soft tissue mass or calcification can be observed. The bony structures are grossly intact. HE WAS STARTED ON NORMAL SALINE AT 75 ML/HR, COLACE 100MG PO BID, MILK OF MAGNESIA 30ML BID, MIRALAX 17G PO DAILY, AND HIS HOME MEDICATIONS WERE RESUMED. WE WILL ADMINISTER SOAP SUDS ENEMAS UNTIL PATIENT PRODUCES AN ADEQUATE BOWEL MOVEMENT. WE WILL MONITOR DAILY KUBS UNTIL CLEAR. OTHERWISE, WE PLAN TO FOLLOW-UP WITH AM LABS AND CONTINUE TO MONITOR. TIME SPENT ON CLINICAL ASSESSMENT, REVIWING LABS AND IMAGING, DECISION MAKING, AND DOCUMENTATION GREATER THAN 75 MINUTES. - History of Present Illness History of Present Illness: WAS SEEN IN THE OFFICE FOR COMPLAINTS OF LLQ ABDOMINAL PAIN AND CONSTIPATION. SYMPTOMS STARTED ON 03/03/22. HE HAS BEEN TAKING MILK OF MAGNESIA AND COLACE, BUT HAS BEEN UNABLE TO PRODUCE A BOWEL MOVEMENT. HE DESCRIBES PAIN CRAMPING, INTERMITTENT, AND RATED IT A 5/10. HE REPORTS THAT PAIN RADIATES TO THE BACK. HE ALSO COMPLAINS OF FREQUENT URINATION. HE WAS RECENTLY STARTED ON TOVIAZ 4MG HS BY HIS UROLOGIST. HIS PMH INCLUDES: CAD, HTN, SLEEP APNEA, ANEMIA, HYPERLIPIDEMIA, A-FIB, DM II, DEPRESSION, CARDIAC STENTS, CHOLECYSTECTOMY, PROSTATE SURGERY. DECISION WAS MADE TO ADMIT PATIENT TO THE HOSPITAL FOR FURTHER EVALUATION AND TREATMENT OF LLQ ABDOMINAL PAIN AND CONSTIPATION. ON ARRIVAL TO THE HOSPITAL, VITALS WERE: 97.2-72-18-99%-154/75. LABS WERE OBTAINED. WBC 5.4, RBC 3.65, HGB 11.0, HCT 31.7, PLT COUNT 137, SODIUM 139, POTASSIUM 4.6, CHLORIDE 104, BUN 16, CREATININE 1.12, GLUCOSE 118, CALCIUM 8.7, AST 18, ALT 25, ALK PHOS 86, TOTAL PROTEIN 6.5, ALBUMIN 3.2. COVID-19 NEGATIVE. A KUB WAS OBTAINED AND REVEALED: nondistended loops of large and small bowel. There is a moderate amount of fecal material throughout the colon. No pathological soft tissue mass or calcification can be observed. The bony structures are grossly intact. HE WAS STARTED ON NORMAL SALINE AT 75 ML/HR, COLACE 100MG PO BID, MILK OF MAGNESIA 30ML BID, MIRALAX 17G PO DAILY, AND HIS HOME MEDICATIONS WERE RESUMED. WE WILL ADMINISTER SOAP SUDS ENEMAS UNTIL PATIENT PRODUCES AN ADEQUATE BOWEL MOVEMENT. WE WILL MONITOR DAILY KUBS UNTIL CLEAR. OTHERWISE, WE PLAN TO FOLLOW-UP WITH AM LABS AND CONTINUE TO MONITOR. TIME SPENT ON CLINICAL ASSESSMENT, REVIWING LABS AND IMAGING, DECISION MAKING, AND DOCUMENTATION GREATER THAN 75 MINUTES. - Past Medical History Past Medical History: Coronary Artery Disease, Hypertension, Dyslipidemia, Diabetes, Dementia, Depression, Kidney Stones, Sleep Apnea Additional Medical History: Urinary Retention, Vision Deficit, Subdural Hematoma, [place], Sleep Apnea, Esophageal Disorders, UTI's, BPH, Muscle Weakness - Past Surgical History Surgical History: Angioplasty/Stents, Cholecystectomy, Ortho Surgery Additional Surgical History: Vasectomy, Cardiac Stents x2, Right Ulnar Relocation, Esphageal Dilation - Family History Family Medical History: Diabetes Mellitus, [place], Heart Failure, Hypertension - Social History Does patient currently use any type of tobacco product: No Have you used tobacco products in the last 12 months: No Type of Tobacco Use: None Does any household member use tobacco: No Alcohol Use: None Drug Use: None - Medications Home Medications: amoxicillin [From Augmentin] Allergy (Verified 01/09/22 19:22) clavulanic acid [From Augmentin] Allergy (Verified 01/09/22 19:22) codeine Allergy (Verified 01/09/22 19:22) haloperidol [From Haldol] Allergy (Verified 01/09/22 19:22) lactose Allergy (Verified 01/09/22 19:22) promethazine [From Phenergan] Allergy (Verified 01/09/22 19:22) shellfish derived Allergy (Verified 01/09/22 19:22) vibegron [From Gemtesa] Allergy (Verified 01/09/22 19:22) CONTINUE taking the following medications fesoterodine 4 mg tablet,extended release 24 hr (Toviaz) 4 mg PO HS 03/13/22 [History] B [id number] 106 mg iron-1 mg tablet 1 tab PO QDAY 03/14/22 [History] - Review of Systems Constitutional: Weakness Eyes: No Symptoms Reported ENT: No Symptoms Reported Respiratory: No Symptoms Reported Cardiovascular: No Symptoms Reported Gastrointestinal: See HPI, Abdominal Pain, Constipation Genitourinary: No Symptoms Reported Musculoskeletal: No Symptoms Reported Skin: No Symptoms Reported Neurological: No Symptoms Reported - Physical Exam Vital Signs: Temperature 98.5 F Pulse Rate [Left] 71 Respiratory Rate 18 Blood Pressure [Left Arm] 126/64 Blood Pressure [Standing] 138/65 Blood Pressure [Sitting] 140/68 Blood Pressure [Lying] 135/73 Blood Pressure 124/68 O2 Sat by Pulse Oximetry 98 Oriented: Normal Eyes: Normal Ear: Normal Nose: Normal Throat: Normal Respiratory: Clear Throughout Cardiovascular: Normal : Normal Auscultation: Bowel Sounds: Normal Palpation: Normal Tenderness: LLQ, Moderate Skin: Normal Musculoskeletal: Normal Psychiatric: Normal Mood Description: Calm Affect: Normal Speech Pattern: Clear - Assessment/Plan (1) Abdominal pain Qualifiers: Abdominal location: left lower quadrant Qualified Code(s): R10.32 - Left lower quadrant pain Status: Acute Plan: ADMIT, NORMAL SALINE AT 75 ML/HR, COLACE 100MG PO BID, MILK OF MAGNESIA 30ML BID, MIRALAX 17G PO DAILY, AND HIS HOME MEDICATIONS WERE RESUMED. SOAP SUDS ENEMAS UNTIL PATIENT PRODUCES AN ADEQUATE BOWEL MOVEMENT. (2) Constipation Qualifiers: Constipation type: slow transit constipation Qualified Code(s): K59.01 - Slow transit constipation Status: Acute (3) Atrial fibrillation with RVR Status: Chronic (4) Hypertension Qualifiers: Hypertension type: primary hypertension Qualified Code(s): I10 - Essential (primary) hypertension Status: Chronic (5) Hyperlipidemia Qualifiers: Hyperlipidemia type: mixed hyperlipidemia Qualified Code(s): E78.2 - Mixed hyperlipidemia Status: Chronic (6) Diabetes mellitus, type 2 Qualifiers: Diabetes mellitus termite helper insulin use: without senior care use Diabetes mellitus complication status: without complication Qualified Code(s): E11.9 - Type 2 diabetes mellitus without complications Status: Chronic (7) BPH (benign prostatic hyperplasia) Qualifiers: Lower urinary tract symptom presence: symptoms absent Qualified Code(s): N40.0 - Benign prostatic hyperplasia without lower urinary tract symptoms Status: Chronic - Allergies Allergies/Adverse Reactions: Allergies Allergy/AdvReac Type Severity Reaction Status Date / Time amoxicillin [From Augmentin] Allergy Verified 01/09/22 19:22 clavulanic acid Allergy Verified 01/09/22 19:22 [From Augmentin] codeine Allergy Verified 01/09/22 19:22 haloperidol [From Haldol] Allergy Verified 01/09/22 19:22 lactose Allergy Verified 01/09/22 19:22 promethazine [From Phenergan] Allergy Verified 01/09/22 19:22 shellfish derived Allergy Verified 01/09/22 19:22 vibegron [From Gemtesa] Allergy Verified 01/09/22 19:22
[2022-03-14 16:19] VITALS: BMI 21.1
[2022-03-14] MEDS: PATIENT'S HOME MEDICATION PO SCH ×3 (18:00→20:00)
[2022-03-14] MEDS: FESOTERODINE 4 MG PO SCH (20:00)
[2022-03-14] MEDS: COENZYME Q10 100 MG PO SCH (20:00)
[2022-03-14] MEDS ORDERED: PROVENTIL NEB TX 0.083% 2.5MG/ 3ML ONE (20:37)
[2022-03-14] MEDS ORDERED: PROVENTIL NEB TX 0.083% 2.5MG/ 3ML NEB ONE (20:43)
[2022-03-14] MEDS ORDERED: PATIENT'S HOME MEDICATION PO SCH ×4 (21:00)
[2022-03-14] MEDS ORDERED: CLARITIN PO SCH (21:00)
[2022-03-15] MEDS: PATIENT'S HOME MEDICATION PO SCH ×2 (04:51→09:38)
[2022-03-15 05:07] LABS: BASOPHILS % (AUTO) 0.5 % (0.2-1.0); EOSINOPHILS # (AUTO) 0.2 x10^3/uL (0.0-0.2); EOSINOPHILS % (AUTO) 5.2 % (0.9-2.9); HEMATOCRIT 29.4 % (42.0-54.0); HEMOGLOBIN 10.2 g/dL (13.5-18.0); LYMPHOCYTES # (AUTO) 1.1 X10^3/uL (1.3-2.9); LYMPHOCYTES % (AUTO) 25.5 % (21.0-51.0); MEAN CORPUSCULAR HEMOGLOBIN 29.9 pg (27.0-34.0); MEAN CORPUSCULAR HGB CONC 34.7 g/dL (33.0-35.0); MEAN CORPUSCULAR VOLUME 86.1 fL (80.0-100.0); MEAN PLATELET VOLUME 7.5 fL (7.4-11.0); MONOCYTES # (AUTO) 0.5 x10^3/uL (0.3-0.8); MONOCYTES % (AUTO) 10.7 % (0.0-13.0); NEUTROPHILS # (AUTO) 2.5 x10^3/uL (2.2-4.8); NEUTROPHILS % (AUTO) 58.1 % (42.0-75.0); RED BLOOD COUNT 3.42 X10^6/uL (4.7-6.0); RED CELL DISTRIBUTION WIDTH 15.6 % (11.6-16.5); WHITE BLOOD COUNT 4.4 X10^3/uL (3.6-10.0)
[2022-03-15 05:25] LABS: ALANINE AMINOTRANSFERASE 23 Units/L (12-78); ALKALINE PHOSPHATASE 83 Units/L (46-116); ASPARTATE AMINO TRANSFERASE 19 Units/L (15-37); BLOOD UREA NITROGEN 12 mg/dL (7-18); CALCIUM 8.6 mg/dL (8.5-10.1); CARBON DIOXIDE 30.7 mmol/L (21-32); CHLORIDE 107 mmol/L (98-107); COR CA(FOR HYPOALB) 9.4 mg/dL (8.5-10.1); CREATININE 1.07 mg/dL (0.70-1.30); SODIUM 142 mmol/L (136-145); TOTAL PROTEIN 6.1 g/dL (6.4-8.2); eGFR NON BLACK RACES > 60 (>60)
[2022-03-15] MEDS ORDERED: PATIENT'S HOME MEDICATION PO SCH ×3 (09:00)
[2022-03-15] MEDS: COLACE CAP 100 MG PO SCH (09:36)
[2022-03-15] MEDS: MIRALAX POWDER (1 DOSE 17 G) PO SCH (09:36)
[2022-03-15] MEDS: MILK OF MAGNESIA PO SCH (09:36)
[2022-03-15] MEDS: HEMOCYTE-PLUS PO SCH (09:37)
[2022-03-15] MEDS: PRASTERONE 25 MG PO SCH (09:39)
[2022-03-15] MEDS: NS 1,000 ML IV 1,000 ML IV SCH (09:40)
--- NOTE | 2022-03-15 12:33 | PCM.PROG ---
Progress Note Progress Note for Day of Date of Exam: 03/15/22 Subjective Subjective: PT IS A 76 YEAR OLD FEMALE WITH LLQ ABDOMINAL PAIN AND CONSTIPATION. SYMPTOMS STARTED ON 03/03/22. HIS PMH INCLUDES: CAD, HTN, SLEEP APNEA, ANEMIA, HYPERLIPIDEMIA, A-FIB, DM II, DEPRESSION, CARDIAC STENTS, CHOLECYSTECTOMY, PROSTATE SURGERY. THIS MORNING HE REPORTS IMPROVEMENT IN HIS SYMPTOMS. HE DID HAVE A BOWEL MOVEMENT THAT HAS HELPED IMPROVE ABDOMINAL PAIN. LABS/IMAGING WERE OBTAINED. WBC 4.4, HGB 10.2, PLT 137, NA 142, K 4.2, CREATININE 1.07, GLUCOSE 98. A KUB WAS OBTAINED AND REVEALED: nondistended loops of large and small bowel. There is a moderate amount of fecal material throughout the colon. No pathological soft tissue mass or calcification can be observed. The bony structures are grossly intact. WILL CONTINUE WITH CURRENT TREATMENTS THAT INCLUDE: NORMAL SALINE AT 75 ML/HR, COLACE 100MG PO BID, MILK OF MAGNESIA 30ML BID, MIRALAX 17G PO DAILY, AND HIS HOME MEDICATIONS WERE RESUMED. WE WILL ADMINISTER SOAP SUDS ENEMAS UNTIL PATIENT PRODUCES AN ADEQUATE BOWEL MOVEMENT. MONITOR DAILY KUBS UNTIL CLEAR. OTHERWISE, WE PLAN TO FOLLOW-UP WITH AM LABS AND CONTINUE TO MONITOR. Past Medical Family Social History Allergies: Allergies amoxicillin [From Augmentin] Allergy (Verified 01/09/22 19:22) clavulanic acid [From Augmentin] Allergy (Verified 01/09/22 19:22) codeine Allergy (Verified 01/09/22 19:22) haloperidol [From Haldol] Allergy (Verified 01/09/22 19:22) lactose Allergy (Verified 01/09/22 19:22) promethazine [From Phenergan] Allergy (Verified 01/09/22 19:22) shellfish derived Allergy (Verified 01/09/22 19:22) vibegron [From Gemtesa] Allergy (Verified 01/09/22 19:22) Review of Systems ROS: No change since H&P Vital Signs and I&O's Vital Signs: Temperature 97.7 F Pulse Rate [Left] 68 Pulse Rate 90 Respiratory Rate 18 Blood Pressure [Left Arm] 160/75 Blood Pressure [Standing] 138/65 Blood Pressure [Sitting] 140/68 Blood Pressure [Lying] 135/73 Blood Pressure 124/68 O2 Sat by Pulse Oximetry 96 Intake and Output: Intake & Output 03/12/22 03/13/22 03/14/22 03/15/22 23:59 23:59 23:59 23:59 Intake Total 546 / 546 3102 / 3102 982 / 982 Balance 546 / 546 3102 / 3102 982 / 982 Physical Exam Oriented: Normal Eyes: Normal Ear: Normal Nose: Normal Throat: Normal Cardiovascular: Normal : Normal Auscultation: Bowel Sounds: Normal Tenderness: LLQ and Moderate Skin: Normal Musculoskeletal: Normal Psychiatric: Normal Mood Description: Calm Affect: Normal Speech Pattern: Clear and Appropriate Laboratory and Diagnostics Result Diagrams: 03/15/22 04:26 03/15/22 04:26 Labs: Laboratory WBC 4.4 X10^3/uL (3.6-10.0) 03/15/22 04:26 RBC 3.42 X10^6/uL (4.7-6.0) L 03/15/22 04:26 Hgb 10.2 g/dL (13.5-18.0) L 03/15/22 04:26 Hct 29.4 % (42.0-54.0) L 03/15/22 04:26 MCV 86.1 fL (80.0-100.0) 03/15/22 04:26 MCH 29.9 pg (27.0-34.0) 03/15/22 04:26 MCHC 34.7 g/dL (33.0-35.0) 03/15/22 04:26 RDW 15.6 % (11.6-16.5) 03/15/22 04:26 Plt Count 137 X10^3/uL (150.0-450.0) L 03/15/22 04:26 MPV 7.5 fL (7.4-11.0) 03/15/22 04:26 Neut % (Auto) 58.1 % (42.0-75.0) 03/15/22 04:26 Lymph % (Auto) 25.5 % (21.0-51.0) 03/15/22 04:26 [place] % (Auto) 10.7 % (0.0-13.0) 03/15/22 04:26 Eos % (Auto) 5.2 % (0.9-2.9) H 03/15/22 04:26 Baso % (Auto) 0.5 % (0.2-1.0) 03/15/22 04:26 Neut # (Auto) 2.5 x10^3/uL (2.2-4.8) 03/15/22 04:26 Lymph # (Auto) 1.1 X10^3/uL (1.3-2.9) L 03/15/22 04:26 [place] # (Auto) 0.5 x10^3/uL (0.3-0.8) 03/15/22 04:26 Eos # (Auto) 0.2 x10^3/uL (0.0-0.2) 03/15/22 04:26 Baso # (Auto) 0.0 X10^3/uL (0.0-0.1) 03/15/22 04:26 Absolute Nucleated RBC 0.0 /100WBC 03/15/22 04:26 Sodium 142 mmol/L (136-145) 03/15/22 04:26 Corrected Sodium TNP 03/15/22 04:26 Potassium 4.2 mmol/L (3.5-5.1) 03/15/22 04:26 Chloride 107 mmol/L (98-107) 03/15/22 04:26 Carbon Dioxide 30.7 mmol/L (21-32) 03/15/22 04:26 BUN 12 mg/dL (7-18) 03/15/22 04:26 Creatinine 1.07 mg/dL (0.70-1.30) 03/15/22 04:26 Est GFR (MDRD) Af Amer > 60 (>60) 03/15/22 04:26 Est GFR (MDRD) Non-Af > 60 (>60) 03/15/22 04:26 Glucose 98 mg/dL (65-99) 03/15/22 04:26 Calcium 8.6 mg/dL (8.5-10.1) 03/15/22 04:26 Corrected Calcium 9.4 mg/dL (8.5-10.1) 03/15/22 04:26 Total Bilirubin 0.60 mg/dL (0.2-1.0) 03/15/22 04:26 AST 19 Units/L (15-37) 03/15/22 04:26 ALT 23 Units/L (12-78) 03/15/22 04:26 Alkaline Phosphatase 83 Units/L (46-116) 03/15/22 04:26 Total Protein 6.1 g/dL (6.4-8.2) L 03/15/22 04:26 Albumin 3.0 g/dL (3.4-5.0) L 03/15/22 04:26 Globulin 3.1 g/dL (2.5-4.5) 03/15/22 04:26 Albumin/Globulin Ratio 1.0 Ratio (1.1-2.1) L 03/15/22 04:26 SARS-CoV-2 (PCR) Negative (NEGATIVE) 03/13/22 16:44 Plan (1) Abdominal pain: Status: Acute Qualifiers: Abdominal location: left lower quadrant Qualified Code(s): R10.32 - Left lower quadrant pain Plan: ADMIT, NORMAL SALINE AT 75 ML/HR, COLACE 100MG PO BID, MILK OF MAGNESIA 30ML BID, MIRALAX 17G PO DAILY, AND HIS HOME MEDICATIONS WERE RESUMED. SOAP SUDS ENEMAS UNTIL PATIENT PRODUCES AN ADEQUATE BOWEL MOVEMENT. (2) Constipation: Status: Acute Qualifiers: Constipation type: slow transit constipation Qualified Code(s): K59.01 - Slow transit constipation (3) Atrial fibrillation with RVR: Status: Chronic (4) Hypertension: Status: Chronic Qualifiers: Hypertension type: primary hypertension Qualified Code(s): I10 - Essential (primary) hypertension (5) Hyperlipidemia: Status: Chronic Qualifiers: Hyperlipidemia type: mixed hyperlipidemia Qualified Code(s): E78.2 - Mixed hyperlipidemia (6) Diabetes mellitus, type 2: Status: Chronic Qualifiers: Diabetes mellitus complication status: without complication Diabetes mellitus terminal operations supervisor insulin use: without residential use Qualified Code(s): E11.9 - Type 2 diabetes mellitus without complications (7) BPH (benign prostatic hyperplasia): Status: Chronic Qualifiers: Lower urinary tract symptom presence: symptoms absent Qualified Code(s): N40.0 - Benign prostatic hyperplasia without lower urinary tract symptoms
--- NOTE | 2022-03-15 12:50 | RAD ---
HISTORYConstipationSTUDYKUBCOMPARISON r.br.br.br.br.br dilatation of small and large bowel. There is no evidence for mass, unusual fecal burden, ascites or visceral enlargement.IMPRESSIONIntestinal gas pattern consistent with nonobstructing dilatation/ileus. No abdominal abnormality otherwise noted. Small parenchymal infiltrate noted in the left lower lung.Electronically signed by: EMERSON IVAN (Mar 15, 2022 12:48:25)
[2022-03-15 13:33] VITALS: BP 136/67
== END 2022-03-15 14:39 | disposition home or self-care (01) ==
LOC: MED/SURG
PROVIDERS: ADMIT Internal Medicine; ATTEND Internal Medicine
DX: I10 Essential (primary) hypertension; N40.0 Benign prostatic hyperplasia without lower urinary tract symptoms; I48.91 Unspecified atrial fibrillation; R10.32 Left lower quadrant pain; E11.65 Type 2 diabetes mellitus with hyperglycemia; K59.01 Slow transit constipation; Z20.822 Contact with and (suspected) exposure to COVID-19; E78.2 Mixed hyperlipidemia

== ENCOUNTER 2022-12-10 11:48 | Inpatient (IN) ==
--- NOTE | 2022-12-10 12:03 | DR.DIZZY ---
HPI Time seen Time Seen by Provider: 12/10/22 12:01 PCP Primary Care Physician: DR GORDILLO Complaint Chief Complaint Doctor Comments: 77 y/o male sent in for evaluation. Having increasing weakness over the past 2 days, has had to use his walker. today was sitting up, eating. Became suddenly dizzy, weaker. Pt moving all extremities, is chronically non verbal. Follows commands well. No recent fever, URI symptoms, bowel or bladder issues. Has been having severe leg cramps recently. Chief Complaint:: PER EMS PT'S STATES THAT PT HAS HAD 2-3 DAYS OF WORSENING WEAKNESS AND EPISODES OF DIZZINESS. PER FAMILY PT IS AT HIS BASELINE MENTAL STATUS. DENIES PAIN AT TIME OF TRIAGE COVID-19 Coronavirus risk:travel/contact w/high risk person: No Has patient experienced Coronavirus symptoms: No Nurses Notes Reviewed Nurses Notes Review: Yes Source History Provided: EMS Mode of Arrival Mode of Arrival: EMS Timing Onset of Chief Complaint: 12/10/22 Context Stroke Symptoms: Dizziness PMH PMH Past Medical History: Yes Past Medical History: Anemia, Coronary Artery Disease, Dementia, Depression, Diabetes, Dyslipidemia, Hypothyroidism, Kidney Stones, SC and Sleep Apnea Past Medical History Comment: AFIB, BPH Past Surgical History: Yes Surgical History: Angioplasty/Stents, Cholecystectomy and Ortho Surgery Past Surgical History Comment: PROSTATE SURGERY Family History History of Family Medical Conditions: Yes Family Medical History: Diabetes Mellitus, SC, Coronary Artery Disease, Heart Failure and Hypertension Social History Does patient currently use any type of tobacco product: No Have you used tobacco products in the last 12 months: No Type of Tobacco Use: None Does any household member use tobacco: No Alcohol Use: None Do you use any recreational Drugs:: No Lives With: Spouse Lives Where: Home Travel Risk Coronavirus risk:travel/contact w/high risk person: No Has patient experienced Coronavirus symptoms: No Infectious screening In the last 2 months have you had wt loss of >10#?: NO Have you had fever, night sweats or hemotysis?: No Have you traveled outside the country in the last 6 months?: No Isolation: Standard ROS Review of Systems Constitutional: Weakness Eyes: Blurred Vision ENTM: No Symptoms Reported Respiratoy: No Symptoms Reported Cardiovascular: No Symptoms Reported Gastrointestinal/Abdominal: No Symptoms Reported Genitourinary: No Symptoms Reported Neurological: Weakness and Dizziness Musculoskeletal: Other (severe muscle cramps recently) Integumentary: No Symptoms Reported Hematologic/Lymphatic: No Symptoms Reported Psychiatric: No Symptoms Reported All Other Systems: Reviewed and Negative PE Vital Signs Vitals: Temperature 98.7 F Pulse Rate 56 Respiratory Rate 18 Blood Pressure [Left Arm] 136/67 Blood Pressure [Standing] 138/65 Blood Pressure [Sitting] 140/68 Blood Pressure [Lying] 135/73 Blood Pressure 180/88 O2 Sat by Pulse Oximetry 98 General General Appearance: Alert Head Head Exam: Normal Inspection, Atraumatic and Normocephalic Eyes Eye exam: PERRL and EOMI ENT ENT Exam: Mucous Membranes Moist Neck Neck Exam: Normal Inspection Respiratory Respiratory Exam: Normal Lung Sounds Bilat; negative Accessory Muscle Use or Respiratory Distress Cardiovascular Cardiovascular Exam: Regular Rate, Normal Rhythm and Normal Heart Sounds Abdominal Exam Abdominal Exam: Normal Bowel Sounds and Soft; negative Tenderness Extremeties Extremities Exam: Normal Inspection; negative Edema Neurologic Neurological Exam: Alert and CN II-XII Intact; negative Motor Sensory Deficit Skin Skin Exam: Warm and Dry COURSE Treatment Treatment: Pt with increasing weakness x 2 days, worsened this am. No evidence for CVA clinically. W/u initiated. Pt given IV fluids. 1425 - CXR concerning for developing RLL pneumonia. Will give IV rocephin. + having increasing spasms of legs. K+/Mg/Phos all acceptable. Will try IV benzodiazepine for spasms (initially ordered lorazepam, spouse questions if had adverse reaction, Will try low dose diazepam). Recommend admission for further treatment. Call put out to Dr Gordillo (discussed with his RN, Lauren). [facility] Labs Reviewed Laboratory Results Reviewed?: Yes Result Diagrams: 12/10/22 12:25 12/10/22 12:25 Laboratory: WBC 3.9 X10^3/uL (3.6-10.0) 12/10/22 12:25 RBC 3.82 X10^6/uL (4.7-6.0) L 12/10/22 12:25 Hgb 11.3 g/dL (13.5-18.0) L 12/10/22 12:25 Hct 33.3 % (42.0-54.0) L 12/10/22 12:25 MCV 87.2 fL (80.0-100.0) 12/10/22 12:25 MCH 29.6 pg (27.0-34.0) 12/10/22 12:25 MCHC 34.0 g/dL (33.0-35.0) 12/10/22 12:25 RDW 14.1 % (11.6-16.5) 12/10/22 12:25 Plt Count 167 X10^3/uL (150.0-450.0) 12/10/22 12:25 MPV 7.4 fL (7.4-11.0) 12/10/22 12:25 Neut % (Auto) 66.1 % (42.0-75.0) 12/10/22 12:25 Lymph % (Auto) 20.6 % (21.0-51.0) L 12/10/22 12:25 [place] % (Auto) 9.4 % (0.0-13.0) 12/10/22 12:25 Eos % (Auto) 3.3 % (0.9-2.9) H 12/10/22 12:25 Baso % (Auto) 0.6 % (0.2-1.0) 12/10/22 12:25 Neut # (Auto) 2.5 x10^3/uL (2.2-4.8) 12/10/22 12:25 Lymph # (Auto) 0.8 X10^3/uL (1.3-2.9) L 12/10/22 12:25 [place] # (Auto) 0.4 x10^3/uL (0.3-0.8) 12/10/22 12:25 Eos # (Auto) 0.1 x10^3/uL (0.0-0.2) 12/10/22 12:25 Baso # (Auto) 0.0 X10^3/uL (0.0-0.1) 12/10/22 12:25 Absolute Nucleated RBC 0.2 /100WBC 12/10/22 12:25 Sodium 140 mmol/L (136-145) 12/10/22 12:25 Corrected Sodium TNP 12/10/22 12:25 Potassium 4.1 mmol/L (3.5-5.1) 12/10/22 12:25 Chloride 106 mmol/L (98-107) 12/10/22 12:25 Carbon Dioxide 29.8 mmol/L (21-32) 12/10/22 12:25 BUN 16 mg/dL (7-18) 12/10/22 12:25 Creatinine 1.21 mg/dL (0.70-1.30) 12/10/22 12:25 Est GFR (MDRD) Af Amer > 60 (>60) 12/10/22 12:25 Est GFR (MDRD) Non-Af > 60 (>60) 12/10/22 12:25 Glucose 104 mg/dL (65-99) H 12/10/22 12:25 Lactic Acid 0.4 mmol/L (0.4-2.0) 12/10/22 14:40 Calcium 8.5 mg/dL (8.5-10.1) 12/10/22 12:25 Corrected Calcium 9.2 mg/dL (8.5-10.1) 12/10/22 12:25 Phosphorus 3.6 mg/dL (2.6-4.7) 12/10/22 12:25 Magnesium 2.0 mg/dL (2.0-2.9) 12/10/22 12:25 Total Bilirubin 0.60 mg/dL (0.2-1.0) 12/10/22 12:25 AST 27 Units/L (15-37) 12/10/22 12:25 ALT 32 Units/L (12-78) 12/10/22 12:25 Alkaline Phosphatase 78 Units/L (46-116) 12/10/22 12:25 Troponin I High Sens 14.6 ng/L (4.0-60.0) 12/10/22 12:25 Total Protein 6.6 g/dL (6.4-8.2) 12/10/22 12:25 Albumin 3.1 g/dL (3.4-5.0) L 12/10/22 12:25 Globulin 3.5 g/dL (2.5-4.5) 12/10/22 12:25 Albumin/Globulin Ratio 0.9 Ratio (1.1-2.1) L 12/10/22 12:25 Lipase 117 Units/L (73-393) 12/10/22 12:25 Specimen Type Clean catch urine 12/10/22 13:37 Urine Color Yellow (YELLOW) 12/10/22 13:37 Urine Appearance Clear (CLEAR) 12/10/22 13:37 Urine pH 7.0 (5.0 - 8.0) 12/10/22 13:37 Ur Specific [place] 1.010 (1.000-1.030) 12/10/22 13:37 Urine Protein 1+ (NEGATIVE) 12/10/22 13:37 Urine Glucose (UA) Negative (NEGATIVE) 12/10/22 13:37 Urine Ketones Negative (NEGATIVE) 12/10/22 13:37 Urine Blood Negative (NEGATIVE) 12/10/22 13:37 Urine Nitrite Negative (NEGATIVE) 12/10/22 13:37 Urine Bilirubin Negative (NEGATIVE) 12/10/22 13:37 Urine Urobilinogen Normal (NORMAL) 12/10/22 13:37 Ur Leukocyte Esterase Negative (NEGATIVE) 12/10/22 13:37 Urine RBC None seen /HPF (0-3) 12/10/22 13:37 Urine WBC None seen /HPF (0-5) 12/10/22 13:37 Ur Squamous Epith Cells Rare /HPF (NEGATIVE) 12/10/22 13:37 Urine Bacteria Negative /HPF (NEGATIVE) 12/10/22 13:37 Ur Culture Indicated? No/not indicated 12/10/22 13:37 Labs acceptable. XRAY XRAY Interpreted by: Self X-ray Results: + increased haziness of R lower lungs, no effusion. Opioid Opioid Risk Tool Age (Jorge box if 16-45): No History of Preadolescent Sexual Abuse: No Total: 0 Total Score Risk Category: Low Risk Copyright: Marck HAYES predicting aberrant behaviors Discharge Plan Diagnosis Discharge Problem: RLL pneumonia, Generalized weakness Discharge Plan Patient Disposition: 09 ADMITTED INPATIENT Condition: Stable Prescriptions: No Action cholecalciferol (vitamin D3) [Vitamin D3] 400 UNIT tablet 5,000 unit PO DAILY coenzyme Q10 [Q-Sorb Co Q-10] 100 MG capsule 100 mg PO HS doxazosin 2 mg Tablet 2 mg PO HS fesoterodine [Toviaz] 4 mg Tablet Extended Release 24 Hr 8 mg PO HS Hemocyte-Plus 106 mg iron- 1 mg Tablet 1 tab PO QDAY ibuprofen 800 mg tablet 400 mg PO BID PRN magnesium hydroxide [Milk of Magnesia] 400 mg/5 mL Suspension 45 ml PO DAILY PRN docusate sodium [Colace] 100 mg Capsule 100 mg PO DAILY PRN levalbuterol HCl 1.25 mg/3 mL solution for nebulization 3 ml INHALATION QID PRN Label Comments: INHALE 1 VIAL VIA NEBULIZER THREE TIMES A DAY FOR 10 DAYS THEN NEEDED polyethylene glycol 3350 [Miralax] 17 gram/dose Powder 17 g PO DAILY PRN lisinopril 5 mg Tablet 2.5 mg PO HS rivastigmine tartrate 3 mg capsule 3 mg PO BID escitalopram oxalate [Lexapro] 20 mg Tablet 20 mg PO DAILY prasterone (dhea) [DHEA] 25 mg Capsule 25 mg PO QHS PRN Label Comments: ONE TAB PO QHS ON THURSDAY, THURSDAY AND THURSDAY PER HML aspirin 81 mg Tablet 81 mg PO DAILY trazodone 50 mg tablet 50 mg PO HS Label Comments: TAKE 1 TABLET BY MOUTH EVERY DAY AT BEDTIME NEEDED simvastatin 40 mg tablet 40 mg PO HS cyanocobalamin (vitamin B-12) [B-12 DOTS] 500 mcg Tablet 500 mcg PO QHS PRN Label Comments: ONE SL HS ON THURSDAY, THURSDAY AND THURSDAY PER HML amiodarone [Pacerone] 200 mg tablet 200 mg PO QHS levothyroxine 75 mcg tablet 75 mcg PO QAM metoprolol succinate 25 mg tablet extended release 24 hr 12.5 mg PO QAM colesevelam 3.75 gram powder in packet 1 ea PO DAILY PRN (Reason: Constipation) Health Concerns: Post Hospitalization: new medications and changes needed to prevent readmission or further decline. Pt educated and given instructions on all concerns. Plan of Treatment: Continue with present treatment and follow up plan. Pt is to keep follow up appointment as instructed and take medications as ordered. Orders to Discharge Patient Discharge Orders: Transfer (Routine); Ordered 12/10/22 Ordered By: Fco Allred Follow ups/Referrals Follow ups/Referrals: Jose Roberto Gordillo [Primary Care Provider] - 3 days Instructions Instructions: Community-Acquired Pneumonia, Adult, [id number]
[2022-12-10] MEDS ORDERED: NS 1,000 ML IV 1,000 ML IV ONE (12:16)
[2022-12-10] MEDS ORDERED: NS 1,000 ML IV 1,000 ML ONE (12:21)
[2022-12-10 12:37] LABS: BASOPHILS % (AUTO) 0.6 % (0.2-1.0); EOSINOPHILS # (AUTO) 0.1 x10^3/uL (0.0-0.2); EOSINOPHILS % (AUTO) 3.3 % (0.9-2.9); HEMATOCRIT 33.3 % (42.0-54.0); HEMOGLOBIN 11.3 g/dL (13.5-18.0); LYMPHOCYTES # (AUTO) 0.8 X10^3/uL (1.3-2.9); LYMPHOCYTES % (AUTO) 20.6 % (21.0-51.0); MEAN CORPUSCULAR HEMOGLOBIN 29.6 pg (27.0-34.0); MEAN CORPUSCULAR VOLUME 87.2 fL (80.0-100.0); MEAN PLATELET VOLUME 7.4 fL (7.4-11.0); MONOCYTES # (AUTO) 0.4 x10^3/uL (0.3-0.8); MONOCYTES % (AUTO) 9.4 % (0.0-13.0); NEUTROPHILS # (AUTO) 2.5 x10^3/uL (2.2-4.8); NEUTROPHILS % (AUTO) 66.1 % (42.0-75.0); PLATELET COUNT 167 X10^3/uL (150.0-450.0); RED BLOOD COUNT 3.82 X10^6/uL (4.7-6.0); RED CELL DISTRIBUTION WIDTH 14.1 % (11.6-16.5); WHITE BLOOD COUNT 3.9 X10^3/uL (3.6-10.0)
[2022-12-10 12:48] LABS: ALANINE AMINOTRANSFERASE 32 Units/L (12-78); ALBUMIN 3.1 g/dL (3.4-5.0); ALKALINE PHOSPHATASE 78 Units/L (46-116); ASPARTATE AMINO TRANSFERASE 27 Units/L (15-37); BLOOD UREA NITROGEN 16 mg/dL (7-18); CALCIUM 8.5 mg/dL (8.5-10.1); CARBON DIOXIDE 29.8 mmol/L (21-32); CHLORIDE 106 mmol/L (98-107); COR CA(FOR HYPOALB) 9.2 mg/dL (8.5-10.1); CREATININE 1.21 mg/dL (0.70-1.30); GLUCOSE 104 mg/dL (65-99); LIPASE 117 Units/L (73-393); PHOSPHORUS 3.6 mg/dL (2.6-4.7); POTASSIUM 4.1 mmol/L (3.5-5.1); SODIUM 140 mmol/L (136-145); TOTAL PROTEIN 6.6 g/dL (6.4-8.2); eGFR NON BLACK RACES > 60 (>60)
[2022-12-10 13:47] LABS: BILIRUBIN,URINE NEGATIVE (NEGATIVE); BLOOD/HEMOGLOBIN,URINE NEGATIVE (NEGATIVE); GLUCOSE, URINE NEGATIVE (NEGATIVE); KETONES,URINE NEGATIVE (NEGATIVE); LEUKOCYTE ESTERASE ,URINE NEGATIVE (NEGATIVE); NITRITES,URINE NEGATIVE (NEGATIVE); PROTEIN,URINE 1+ (NEGATIVE); UROBILINOGEN,URINE NORMAL (NORMAL)
[2022-12-10 13:54] LABS: COLOR,URINE YELLOW (YELLOW)
[2022-12-10 13:55] LABS: APPEARANCE,URINE CLEAR (CLEAR); BACTERIA,URINE NEGATIVE /HPF (NEGATIVE); RBC,URINE NONE SEEN /HPF (0-3); SQUAMOUS EPITHELIAL CELL,UR RARE /HPF (NEGATIVE)
[2022-12-10] MEDS ORDERED: ROCEPHIN VIAL 1 GRAM 1 G in NS 100 ML IV 100 ML IV ONE (14:12)
[2022-12-10] MEDS ORDERED: ROCEPHIN VIAL 1 GRAM IV ONE (14:23)
[2022-12-10] MEDS ORDERED: ROCEPHIN VIAL 1 GRAM ONE (14:24)
[2022-12-10] MEDS ORDERED: ATIVAN INJ 2 MG VIAL IVP ONE (14:28)
[2022-12-10] MEDS ORDERED: ATIVAN INJ 2 MG VIAL ONE (14:30)
[2022-12-10] MEDS ORDERED: VALIUM INJ IVP ONE (14:31)
[2022-12-10] MEDS ORDERED: VALIUM INJ ONE (14:33)
[2022-12-10] MEDS ORDERED: COLESEVELAM PO PRN (16:08)
[2022-12-10] MEDS ORDERED: MOTRIN TAB 800 MG PO PRN (16:08)
[2022-12-10] MEDS ORDERED: XOPENEX 1.25 MG/3 ML NEBULE NEB PRN (16:08)
[2022-12-10] MEDS ORDERED: MIRALAX POWDER (255 GRAMS BTL) PO PRN (16:08)
[2022-12-10] MEDS: ROCEPHIN VIAL 1 GRAM 1 G in NS 100 ML IV 100 ML IV SCH (16:25)
[2022-12-10] MEDS: D5 1/2 NS 1,000 ML 1,000 ML IV SCH (17:13)
[2022-12-10] MEDS: CORDARONE TAB 200 MG PO SCH (20:43)
[2022-12-10] MEDS: VITAMIN B-12 PO SCH (20:43)
[2022-12-10] MEDS: CARDURA PO SCH (20:43)
[2022-12-10] MEDS: ZESTRIL TAB 5 MG PO SCH (20:43)
[2022-12-10] MEDS: ZOCOR TAB 40 MG PO SCH (20:43)
[2022-12-10] MEDS: EXELON PO SCH (20:44)
[2022-12-10] MEDS: FESOTERODINE 4 MG PO SCH (20:58)
[2022-12-10] MEDS ORDERED: COENZYME Q10 100 MG PO SCH (21:00)
[2022-12-10] MEDS ORDERED: DESYREL PO SCH (21:00)
[2022-12-10] MEDS ORDERED: PRASTERONE 25 MG PO SCH (21:00)
[2022-12-10] MEDS: PULMICORT NEB TX 0.5 MG NEB SCH (21:06)
--- NOTE | 2022-12-10 21:16 | RAD ---
HISTORYWEAKNESS PER EMS PT'S STATES THAT PT HAS HAD 2-3 DAYS OF WORSENING WEAKNESS AND EPISODES OF DIZZINESS. PER FAMILY PT IS AT HIS BASELINE MENTAL STATUSSTUDYCHEST, 1 VIEWCOMPARISONFrontal chest radiograph October 25, 2022FINDINGSPulmonary vascular congestion. Bilateral airspace infiltrates right greater than left.IMPRESSIONChronic congestive changes are suspected with modest improved aeration in the left base since the prior study. Pneumonia difficult to exclude radiographically.Electronically signed by: Samuel Islas (December 10, 2022 21:14:54)
[2022-12-11] MEDS: XOPENEX 1.25 MG/3 ML NEBULE NEB SCH ×4 (00:10→17:36)
[2022-12-11] MEDS: D5 1/2 NS 1,000 ML 1,000 ML IV SCH ×2 (04:32→18:09)
[2022-12-11 06:00] LABS: BASOPHILS % (AUTO) 0.3 % (0.2-1.0); EOSINOPHILS # (AUTO) 0.2 x10^3/uL (0.0-0.2); EOSINOPHILS % (AUTO) 3.1 % (0.9-2.9); HEMATOCRIT 31.8 % (42.0-54.0); LYMPHOCYTES # (AUTO) 1.1 X10^3/uL (1.3-2.9); LYMPHOCYTES % (AUTO) 18.4 % (21.0-51.0); MEAN CORPUSCULAR HEMOGLOBIN 29.9 pg (27.0-34.0); MEAN CORPUSCULAR HGB CONC 34.7 g/dL (33.0-35.0); MEAN CORPUSCULAR VOLUME 86.2 fL (80.0-100.0); MEAN PLATELET VOLUME 7.9 fL (7.4-11.0); MONOCYTES # (AUTO) 0.6 x10^3/uL (0.3-0.8); MONOCYTES % (AUTO) 9.6 % (0.0-13.0); NEUTROPHILS # (AUTO) 4.1 x10^3/uL (2.2-4.8); NEUTROPHILS % (AUTO) 68.6 % (42.0-75.0); PLATELET COUNT 152 X10^3/uL (150.0-450.0); RED BLOOD COUNT 3.69 X10^6/uL (4.7-6.0); RED CELL DISTRIBUTION WIDTH 14.1 % (11.6-16.5)
[2022-12-11 06:25] LABS: ALANINE AMINOTRANSFERASE 30 Units/L (12-78); ALBUMIN 2.9 g/dL (3.4-5.0); ALKALINE PHOSPHATASE 71 Units/L (46-116); ASPARTATE AMINO TRANSFERASE 29 Units/L (15-37); BLOOD UREA NITROGEN 12 mg/dL (7-18); CALCIUM 8.3 mg/dL (8.5-10.1); CARBON DIOXIDE 28.1 mmol/L (21-32); CHLORIDE 104 mmol/L (98-107); COR CA(FOR HYPOALB) 9.2 mg/dL (8.5-10.1); CREATININE 0.96 mg/dL (0.70-1.30); GLUCOSE 103 mg/dL (65-99); POTASSIUM 3.4 mmol/L (3.5-5.1); SODIUM 139 mmol/L (136-145); TOTAL PROTEIN 6.2 g/dL (6.4-8.2); eGFR NON BLACK RACES > 60 (>60)
[2022-12-11] MEDS: PULMICORT NEB TX 0.5 MG NEB SCH ×2 (08:03→20:35)
[2022-12-11] MEDS ORDERED: VITAMIN D3 125 mcg (5,000 UNITS) PO SCH (09:00)
[2022-12-11] MEDS ORDERED: LEXAPRO ONE (09:48)
[2022-12-11] MEDS: LEXAPRO PO SCH (09:58)
[2022-12-11] MEDS: HEMOCYTE-PLUS PO SCH (09:59)
[2022-12-11] MEDS: EXELON PO SCH ×2 (09:59→20:56)
[2022-12-11] MEDS: SYNTHROID 75 mcg TAB PO SCH (09:59)
[2022-12-11] MEDS: LOPRESSOR TAB 25 MG PO SCH (09:59)
[2022-12-11] MEDS: ASPIRIN EC 81 MG PO SCH (09:59)
[2022-12-11] MEDS: LOVENOX INJ 40 MG SYR SC SCH (10:00)
[2022-12-11] MEDS: VITAMIN D3 125 mcg (5,000 UNITS) PO SCH (10:41)
[2022-12-11] MEDS: ROCEPHIN VIAL 1 GRAM 1 G in NS 100 ML IV 100 ML IV SCH (10:41)
[2022-12-11] MEDS: PROTONIX INJ 40 MG VIAL IVP SCH (11:26)
[2022-12-11] MEDS: MOTRIN TAB 800 MG PO PRN (13:57)
[2022-12-11] MEDS ORDERED: MICRO K EXTEN CAP 10 MEQ PO PRN (15:10)
[2022-12-11] MEDS ORDERED: K-RIDER 10 MEQ/NS 100 ML 10 MEQ/100 ML BAG IV PRN (15:10)
[2022-12-11] MEDS ORDERED: K-DUR TAB 20 MEQ PO PRN (15:10)
[2022-12-11] MEDS ORDERED: POTASSIUM CHL 60 MEQ/NS 0.45% 500 ML IV PRN (15:10)
[2022-12-11] MEDS ORDERED: KLOR-CON PO PRN (15:10)
[2022-12-11] MEDS ORDERED: POTASSIUM CHL 40 MEQ/NS 0.45% 500 ML IV PRN (15:10)
[2022-12-11] MEDS ORDERED: MAGNESIUM SULFATE 1 GRAM/100 mL PREMIX 1 G/100 ML BAG IV ONE (15:17)
[2022-12-11] MEDS ORDERED: MICRO K EXTEN CAP 10 MEQ PO ONE (15:17)
[2022-12-11] MEDS: MAGNESIUM SULFATE 1 GRAM/100 mL PREMIX 1 G/100 ML BAG IV PRN (15:22)
[2022-12-11] MEDS: CORDARONE TAB 200 MG PO SCH (20:54)
[2022-12-11] MEDS: VITAMIN B-12 PO SCH (20:54)
[2022-12-11] MEDS: ZESTRIL TAB 5 MG PO SCH (20:56)
[2022-12-11] MEDS: CARDURA PO SCH (20:56)
[2022-12-11] MEDS: ZOCOR TAB 40 MG PO SCH (20:57)
[2022-12-11] MEDS: FESOTERODINE 4 MG PO SCH (20:59)
[2022-12-11] MEDS ORDERED: DESYREL PO SCH (21:00)
[2022-12-12] MEDS: XOPENEX 1.25 MG/3 ML NEBULE NEB SCH ×4 (00:15→18:03)
[2022-12-12 06:11] LABS: BASOPHILS % (AUTO) 0.5 % (0.2-1.0); EOSINOPHILS # (AUTO) 0.2 x10^3/uL (0.0-0.2); EOSINOPHILS % (AUTO) 4.4 % (0.9-2.9); HEMOGLOBIN 10.4 g/dL (13.5-18.0); LYMPHOCYTES % (AUTO) 19.1 % (21.0-51.0); MEAN CORPUSCULAR HEMOGLOBIN 30.1 pg (27.0-34.0); MEAN CORPUSCULAR HGB CONC 34.6 g/dL (33.0-35.0); MONOCYTES # (AUTO) 0.5 x10^3/uL (0.3-0.8); MONOCYTES % (AUTO) 8.8 % (0.0-13.0); NEUTROPHILS # (AUTO) 3.7 x10^3/uL (2.2-4.8); NEUTROPHILS % (AUTO) 67.2 % (42.0-75.0); PLATELET COUNT 141 X10^3/uL (150.0-450.0); RED BLOOD COUNT 3.44 X10^6/uL (4.7-6.0); RED CELL DISTRIBUTION WIDTH 14.5 % (11.6-16.5); WHITE BLOOD COUNT 5.5 X10^3/uL (3.6-10.0)
[2022-12-12 06:22] LABS: ALANINE AMINOTRANSFERASE 28 Units/L (12-78); ALBUMIN 2.8 g/dL (3.4-5.0); ALKALINE PHOSPHATASE 74 Units/L (46-116); ASPARTATE AMINO TRANSFERASE 21 Units/L (15-37); BLOOD UREA NITROGEN 8 mg/dL (7-18); CALCIUM 8.1 mg/dL (8.5-10.1); CARBON DIOXIDE 29.2 mmol/L (21-32); CHLORIDE 106 mmol/L (98-107); COR CA(FOR HYPOALB) 9.1 mg/dL (8.5-10.1); CREATININE 0.91 mg/dL (0.70-1.30); GLUCOSE 102 mg/dL (65-99); POTASSIUM 3.5 mmol/L (3.5-5.1); SODIUM 139 mmol/L (136-145); eGFR NON BLACK RACES > 60 (>60)
--- NOTE | 2022-12-12 07:45 | RAD ---
HISTORYShortness of breathSTUDYChest AP [id number]/2023FINDINGSHear t is enlarged. Pulmonary venous congestion is present and more prominent than on the prior examination. Perihilar interstitial changes are now present suggestive of mild but worsening congestive heart failure. No alveolar edema, alveolar infiltrates, areas of consolidation or pleural effusions identified. Bony thorax is unremarkable.IMPRESSIONMild cardiomegaly with increasing congestive heart failureElectronically signed by: MELECIO SHAW (December 12, 2022 07:43:50)
--- NOTE | 2022-12-12 09:13 | DR.H&P ---
H&P - History & Physical for Day of: H&P Date: 12/10/22 - Chief Complaint Chief Complaint: WEAKNESS, DIZZINESS - History of Present Illness History of Present Illness: IS A 77 YEAR OLD PATIENT OF OURS. HE HAS A PMH OF CAD, HTN, SLEEP APNEA, ANEMIA, HYPERLIPIDEMIA, A-FIB, DM II, DEPRESSION, CARDIAC STENTS, CHOLECYSTECTOMY, PROSTATE SURGERY. HE PRESENTED TO THE EMERGENCY ROOM WITH COMPLAINTS OF INCREASING WEAKNESS, DIZZINESS, AND LEG CRAMPS FOR THE PAST TWO DAYS. PATIENTS SPOUSE REPORTS THAT HE IS USUALLY ABLE TO AMBULATE WITHOUT THE USE OF A WALKER, BUT HAS HAD TO USE IT SINCE SYMPTOMS STARTED. HE DENIES RECENT FEVER, URI SYMPTOMS, BOWEL OR BLADDER ISSUES. HIS SPOUSE REPORTS THAT HE IS AT BASELINE MENTAL STATUS. UPON EXAMINATION, PATIENT IS ABLE TO MOVE ALL EXTREMITIES WELL AND FOLLOWED VERBAL INSTRUCTIONS. PATIENT IS CHRONICALLY NON VERBAL. ON ARRIVAL, HIS VITALS WERE 98.7-53-22-98%-150/73. LABS WERE OBTAINED. WBC 3.9, RBC 3.82, HGB 11.3, HCT 33.3, PLT COUNT 167, SODIUM 140, POTASSIUM 4.1, CHLORIDE 106, BUN 16, CREATININE 1.21, GLUCOSE 104, CALCIUM 8.5, PHOSPHORUS 3.6, MAGNESIUM 2.0, AST 27, ALT 32, ALK PHOS 78, TOTAL PROTEIN 6.6, ALBUMIN 3.1, LIPASE 117. A URINALYSIS WAS OBTAINED AND WAS UNREMARKABLE. RESPIRATORY VIRAL PANEL AND BLOOD CULTURES WERE SET UP. A CHEST XRAY WAS OBTAINED AND REVEALED: Pulmonary vascular congestion. Bilateral airspace infiltrates right greater than left. ON ROOM AIR, PATIENTS SATURATIONS WERE DROPPING TO 86%. HE WAS PLACED ON OXYGEN VIA NASAL CANNULA AT 2 LPM. SATURATIONS INCREASED TO 100%. IN THE ER, HE WAS GIVEN A NORMAL SALINE BOLUS, ROCEPHIN 1G IV X 1 DOSE, VALIUM 2MG IV X 1. HE WAS ADMITTED TO THE HOSPITAL OBSERVATION STATUS FOR FURTHER EVALUATION AND TREATMENT OF RIGHT LOWER LOBE PNEUMONIA AND GENERALIZED WEAKNESS. HE WAS STARTED ON D51/2 NS AT 80 ML/HR, ROCEPHIN 1G IV DAILY, PULMICORT NEBS BID, XOPENEX NEBS Q6H, LOVENOX 40MG SC DAILY, PROTONIX 40MG IV DAILY, AND HIS HOME MEDICATIONS WERE RESUMED. HOME MEDICATIONS INCLUDE: AMIODARONE, ASPIRIN, VITAMIN D3, VITAMIN B12, COLACE, ARDURA, LEXAPRO, IBUPROFEN, LEVOTHYROXINE, LISINOPRIL, METOPROLOL, HEMOCYTE PLUS, MIRALAX, EXELON, SIMVASTATIN, AND TRAZODONE. WE WILL HAVE PHYSICAL THERAPY EVALUATE HIM. OTHERWISE, WE WILL FOLLOW-UP WITH AM LABS AND CHEST XRAY AND CONTINUE TO MONITOR. TIME SPENT ON CLINICAL ASSESSMENT, REVIWING LABS AND IMAGING, DECISION MAKING, AND DOCUMENTATION GREATER THAN 75 MINUTES. - Past Medical History Past Medical History: HI, Coronary Artery Disease, Dyslipidemia, Diabetes, Dementia, Depression, Hypothyroidism, Anemia, Kidney Stones, Sleep Apnea Additional Medical History: Urinary Retention, Vision Deficit, Subdural Hematoma, [place], Sleep Apnea, Esophageal Disorders, UTI's, BPH, Muscle Weakness - Past Surgical History Surgical History: Angioplasty/Stents, Cholecystectomy, Ortho Surgery Additional Surgical History: Vasectomy, Cardiac Stents x2, Right Ulnar Relocation, Esphageal Dilation - Family History Family Medical History: Diabetes Mellitus, HI, Coronary Artery Disease, Heart Failure, Hypertension - Social History Does patient currently use any type of tobacco product: No Have you used tobacco products in the last 12 months: No Type of Tobacco Use: None Does any household member use tobacco: No Alcohol Use: None - Medications Home Medications: amoxicillin [From Augmentin] Allergy (Verified 01/09/22 19:22) carbidopa Allergy (Verified 10/25/22 07:54) clavulanic acid [From Augmentin] Allergy (Verified 01/09/22 19:22) codeine Allergy (Verified 01/09/22 19:22) haloperidol [From Haldol] Allergy (Verified 01/09/22 19:22) lactose Allergy (Verified 01/09/22 19:22) levodopa Allergy (Verified 10/25/22 07:54) promethazine [From Phenergan] Allergy (Verified 01/09/22 19:22) shellfish derived Allergy (Verified 01/09/22 19:22) tramadol Allergy (Verified 10/25/22 07:54) vibegron [From Gemtesa] Allergy (Verified 01/09/22 19:22) CONTINUE taking the following medications docusate sodium 100 mg capsule (Colace) 100 mg PO DAILY PRN 12/10/22 [History] ibuprofen 800 mg tablet 400 mg PO BID PRN 12/10/22 [History] levalbuterol HCl 1.25 mg/3 mL solution for nebulization 3 ml inhalation QID PRN 12/10/22 [History] magnesium hydroxide 400 mg/5 mL oral suspension (Milk of Magnesia) 45 ml PO DAILY PRN 12/10/22 [History] polyethylene glycol 3350 17 gram/dose oral powder (Miralax) 17 g PO DAILY PRN 12/10/22 [History] - Review of Systems Constitutional: Weakness Eyes: No Symptoms Reported ENT: No Symptoms Reported Respiratory: No Symptoms Reported Cardiovascular: [place] Gastrointestinal: No Symptoms Reported Genitourinary: No Symptoms Reported Musculoskeletal: No Symptoms Reported Skin: No Symptoms Reported Neurological: Weakness - Physical Exam Vital Signs: Temperature 97.6 F Pulse Rate [Left Radial] 52 Pulse Rate 51 Respiratory Rate 19 Blood Pressure [Left Arm] 124/66 Blood Pressure [Standing] 138/65 Blood Pressure [Sitting] 140/68 Blood Pressure [Lying] 135/73 Blood Pressure 171/76 O2 Sat by Pulse Oximetry 95 Oriented: Person, Place Eyes: Normal Ear: Normal Nose: Normal Throat: Normal Respiratory: Diminished Throughout Cardiovascular: Normal : Normal Auscultation: Bowel Sounds: Normal Palpation: Normal Tenderness: Normal Skin: Normal Musculoskeletal: Normal Psychiatric: Normal Mood Description: Calm Affect: Normal Speech Pattern: Clear - Assessment/Plan (1) Pneumonia Qualifiers: Pneumonia type: due to unspecified organism Laterality: right Lung location: lower lobe of lung Qualified Code(s): J18.9 - Pneumonia, unspecified organism Status: Acute Plan: ADMIT, SUPPLEMENTAL OXYGEN, RESPIRATORY THERAPY, D51/2 NS AT 80 ML/HR, ROCEPHIN 1G IV DAILY, PULMICORT NEBS BID, XOPENEX NEBS Q6H, LOVENOX 40MG SC DAILY, PROTONIX 40MG IV DAILY, AND HIS HOME MEDICATIONS WERE RESUMED. (2) Generalized weakness Status: Acute (3) Atrial fibrillation Qualifiers: Atrial fibrillation type: unspecified Qualified Code(s): I48.91 - Unspecified atrial fibrillation Status: Acute (4) Hypertension Qualifiers: Hypertension type: primary hypertension Status: Chronic (5) Hyperlipidemia Qualifiers: Hyperlipidemia type: mixed hyperlipidemia Status: Chronic (6) Dementia Qualifiers: Dementia type: unspecified type Dementia severity: unspecified severity Dementia behavioral or psychological symptom: unspecified whether behavioral, psychotic, or mood disturbance or anxiety Qualified Code(s): F03.90 - Unspecified dementia, unspecified severity, without behavioral disturbance, psychotic disturbance, mood disturbance, and anxiety Status: Chronic (7) CAD (coronary artery disease) Qualifiers: Coronary Disease-Associated Artery/Lesion type: [place] artery Tribal vs. transplanted heart: [place] heart Associated angina: unspecified whether angina present Qualified Code(s): I25.10 - Atherosclerotic heart disease of [place] coronary artery without angina pectoris Status: Chronic - Allergies Allergies/Adverse Reactions: Allergies Allergy/AdvReac Type Severity Reaction Status Date / Time amoxicillin [From Augmentin] Allergy Verified 01/09/22 19:22 carbidopa Allergy Verified 10/25/22 07:54 clavulanic acid Allergy Verified 01/09/22 19:22 [From Augmentin] codeine Allergy Verified 01/09/22 19:22 haloperidol [From Haldol] Allergy Verified 01/09/22 19:22 lactose Allergy Verified 01/09/22 19:22 levodopa Allergy Verified 10/25/22 07:54 promethazine [From Phenergan] Allergy Verified 01/09/22 19:22 shellfish derived Allergy Verified 01/09/22 19:22 tramadol Allergy Verified 10/25/22 07:54 vibegron [From Gemtesa] Allergy Verified 01/09/22 19:22
[2022-12-12] MEDS: ROCEPHIN VIAL 1 GRAM 1 G in NS 100 ML IV 100 ML IV SCH (09:19)
[2022-12-12] MEDS: PULMICORT NEB TX 0.5 MG NEB SCH ×2 (09:30→21:05)
[2022-12-12] MEDS ORDERED: LEXAPRO ONE (09:53)
[2022-12-12] MEDS: LOPRESSOR TAB 25 MG PO SCH (10:27)
[2022-12-12] MEDS: VITAMIN D3 125 mcg (5,000 UNITS) PO SCH (10:27)
[2022-12-12] MEDS: SYNTHROID 75 mcg TAB PO SCH (10:28)
[2022-12-12] MEDS: LEXAPRO PO SCH (10:28)
[2022-12-12] MEDS: HEMOCYTE-PLUS PO SCH (10:28)
[2022-12-12] MEDS: EXELON PO SCH ×2 (10:28→20:32)
[2022-12-12] MEDS: ASPIRIN EC 81 MG PO SCH (10:28)
[2022-12-12] MEDS: LOVENOX INJ 40 MG SYR SC SCH (10:29)
[2022-12-12] MEDS: PROTONIX INJ 40 MG VIAL IVP SCH (10:29)
[2022-12-12] MEDS: POTASSIUM CHLORIDE LIQ 20 MEQ UDC PO PRN (14:13)
[2022-12-12] MEDS: D5 1/2 NS 1,000 ML 1,000 ML IV SCH ×3 (18:27→23:19)
[2022-12-12] MEDS: ZOCOR TAB 40 MG PO SCH (20:30)
[2022-12-12] MEDS: MILK OF MAGNESIA PO PRN (20:30)
[2022-12-12] MEDS: CARDURA PO SCH (20:30)
[2022-12-12] MEDS: ZESTRIL TAB 5 MG PO SCH (20:34)
[2022-12-12] MEDS: VITAMIN B-12 PO SCH (20:35)
[2022-12-12] MEDS: CORDARONE TAB 200 MG PO SCH (20:41)
[2022-12-12] MEDS: FESOTERODINE 4 MG PO SCH (20:47)
[2022-12-13] MEDS: XOPENEX 1.25 MG/3 ML NEBULE NEB SCH ×5 (00:05→17:00)
[2022-12-13 05:56] LABS: BASOPHILS % (AUTO) 0.4 % (0.2-1.0); EOSINOPHILS # (AUTO) 0.4 x10^3/uL (0.0-0.2); EOSINOPHILS % (AUTO) 6.9 % (0.9-2.9); HEMATOCRIT 30.6 % (42.0-54.0); HEMOGLOBIN 10.5 g/dL (13.5-18.0); LYMPHOCYTES % (AUTO) 18.7 % (21.0-51.0); MEAN CORPUSCULAR HEMOGLOBIN 30.1 pg (27.0-34.0); MEAN CORPUSCULAR HGB CONC 34.5 g/dL (33.0-35.0); MEAN CORPUSCULAR VOLUME 87.2 fL (80.0-100.0); MEAN PLATELET VOLUME 8.3 fL (7.4-11.0); MONOCYTES # (AUTO) 0.5 x10^3/uL (0.3-0.8); MONOCYTES % (AUTO) 9.7 % (0.0-13.0); NEUTROPHILS # (AUTO) 3.6 x10^3/uL (2.2-4.8); NEUTROPHILS % (AUTO) 64.3 % (42.0-75.0); PLATELET COUNT 138 X10^3/uL (150.0-450.0); RED BLOOD COUNT 3.51 X10^6/uL (4.7-6.0); RED CELL DISTRIBUTION WIDTH 13.9 % (11.6-16.5); WHITE BLOOD COUNT 5.6 X10^3/uL (3.6-10.0)
[2022-12-13 06:10] LABS: ALANINE AMINOTRANSFERASE 29 Units/L (12-78); ALBUMIN 2.7 g/dL (3.4-5.0); ALKALINE PHOSPHATASE 75 Units/L (46-116); ASPARTATE AMINO TRANSFERASE 23 Units/L (15-37); BLOOD UREA NITROGEN 6 mg/dL (7-18); CALCIUM 8.2 mg/dL (8.5-10.1); CARBON DIOXIDE 27.6 mmol/L (21-32); CHLORIDE 104 mmol/L (98-107); COR CA(FOR HYPOALB) 9.2 mg/dL (8.5-10.1); CREATININE 0.85 mg/dL (0.70-1.30); GLUCOSE 107 mg/dL (65-99); POTASSIUM 3.4 mmol/L (3.5-5.1); SODIUM 137 mmol/L (136-145); eGFR NON BLACK RACES > 60 (>60)
--- NOTE | 2022-12-13 07:13 | RAD ---
HISTORYSOBSTUDYAP chestCOMPARISONMay 2022FINDINGSIncreasing airspace disease in both lungs with new small right pleural effusion. Heart size is similar.IMPRESSIONIncreasing infiltrates consistent with pneumonia/edema and right pleural effusion.Electronically signed by: EMERSON IVAN (December 13, 2022 07:11:42)
[2022-12-13] MEDS: PULMICORT NEB TX 0.5 MG NEB SCH ×3 (07:56→20:30)
[2022-12-13] MEDS ORDERED: LEXAPRO ONE (08:20)
[2022-12-13] MEDS: EXELON PO SCH ×2 (09:48→20:39)
[2022-12-13] MEDS: LOVENOX INJ 40 MG SYR SC SCH (09:48)
[2022-12-13] MEDS: ROCEPHIN VIAL 1 GRAM 1 G in NS 100 ML IV 100 ML IV SCH (09:48)
[2022-12-13] MEDS: LOPRESSOR TAB 25 MG PO SCH (09:49)
[2022-12-13] MEDS: VITAMIN D3 125 mcg (5,000 UNITS) PO SCH (09:49)
[2022-12-13] MEDS: PROTONIX INJ 40 MG VIAL IVP SCH (09:49)
[2022-12-13] MEDS: HEMOCYTE-PLUS PO SCH (09:49)
[2022-12-13] MEDS: SYNTHROID 75 mcg TAB PO SCH (09:49)
[2022-12-13] MEDS: LEXAPRO PO SCH (09:49)
[2022-12-13] MEDS: ASPIRIN EC 81 MG PO SCH (09:49)
[2022-12-13] MEDS: POTASSIUM CHLORIDE LIQ 20 MEQ UDC PO PRN ×2 (09:50→13:14)
[2022-12-13] MEDS: D5 1/2 NS 1,000 ML 1,000 ML IV SCH ×2 (10:12→18:07)
--- NOTE | 2022-12-13 11:21 | PCM.PROG ---
Progress Note Progress Note for Day of Date of Exam: 12/13/22 Subjective Subjective: PT IS A 77 YEAR OLD MALE WITH PMH OF CAD, HTN, SLEEP APNEA, ANEMIA, HYPERLIPIDEMIA, A-FIB, DM II, DEPRESSION, CARDIAC STENTS, CHOLECYSTECTOMY, PROSTATE SURGERY. PATIENT IS CHRONICALLY NON VERBAL. HE WAS ADMITTED FOR RIGHT LOWER LOBE PNEUMONIA AND GENERALIZED WEAKNESS. THIS MORNING HE IS RESTING COMFORTABLY IN BED. NO ACUTE EVENTS OVERNIGHT. LABS/IMAGING: WBC 5.6, HGB 10.5, PLT 138, NA 137, K 3.4, CREATININE 0.85, GLUCOSE 107, RESPIRATORY VIRAL PANEL AND BLOOD CULTURES WERE SET UP. A CHEST XRAY WAS OBTAINED AND REVEALED: Increasing infiltrates consistent with pneumonia/edema and right pleural effusion. HE IS CURRENTLY RECEIVING D51/2 NS AT 80 ML/HR, ROCEPHIN 1G IV DAILY, PULMICORT NEBS BID, XOPENEX NEBS Q6H, LOVENOX 40MG SC DAILY, PROTONIX 40MG IV DAILY, AND HIS HOME MEDICATIONS WERE RESUMED. HOME MEDICATIONS INCLUDE: AMIODARONE, ASPIRIN, VITAMIN D3, VITAMIN B12, COLACE, ARDURA, LEXAPRO, IBUPROFEN, LEVOTHYROXINE, LISINOPRIL, METOPROLOL, HEMOCYTE PLUS, MIRALAX, EXELON, SIMVASTATIN, AND TRAZODONE. PHYSICAL THERAPY TO EVALUATE HIM. OTHERWISE, WILL CONTINUE WITH CURRENT TREATMENT PLAN. CONTINUE TO FOLLOW-UP WITH AM LABS AND CHEST XRAY AND MONITOR. Past Medical Family Social History Allergies: Allergies amoxicillin [From Augmentin] Allergy (Verified 01/09/22 19:22) carbidopa Allergy (Verified 10/25/22 07:54) clavulanic acid [From Augmentin] Allergy (Verified 01/09/22 19:22) codeine Allergy (Verified 01/09/22 19:22) haloperidol [From Haldol] Allergy (Verified 01/09/22 19:22) lactose Allergy (Verified 01/09/22 19:22) levodopa Allergy (Verified 10/25/22 07:54) promethazine [From Phenergan] Allergy (Verified 01/09/22 19:22) shellfish derived Allergy (Verified 01/09/22 19:22) tramadol Allergy (Verified 10/25/22 07:54) vibegron [From Gemtesa] Allergy (Verified 01/09/22 19:22) Vital Signs and I&O's Vital Signs: Temperature 97.7 F Pulse Rate [Left Radial] 60 Pulse Rate 64 Respiratory Rate 20 Blood Pressure [Right Arm] 140/73 Blood Pressure [Left Arm] 145/71 Blood Pressure [Standing] 138/65 Blood Pressure [Sitting] 140/68 Blood Pressure [Lying] 135/73 Blood Pressure 171/76 O2 Sat by Pulse Oximetry 96 Intake and Output: Intake & Output 12/10/22 12/11/22 12/12/22 12/13/22 23:59 23:59 23:59 23:59 Intake Total 120 / 120 1520 / 1520 1500 / 1500 321 / 321 Balance 120 / 120 1520 / 1520 1500 / 1500 321 / 321 Physical Exam Oriented: Person and Place Eyes: Normal Ear: Normal Nose: Normal Throat: Normal Respiratory: Rhonchi Cardiovascular: Normal : Normal Auscultation: Bowel Sounds: Normal Tenderness: Normal Skin: Normal Musculoskeletal: Normal Psychiatric: Normal Mood Description: Calm Affect: Normal Speech Pattern: Delayed Laboratory and Diagnostics Result Diagrams: 12/13/22 05:01 12/13/22 05:01 Labs: 12/10/22 14:45 Blood Blood Culture - Preliminary 12/10/22 14:40 Blood Blood Culture - Preliminary Laboratory WBC 5.6 X10^3/uL (3.6-10.0) 12/13/22 05:01 RBC 3.51 X10^6/uL (4.7-6.0) L 12/13/22 05:01 Hgb 10.5 g/dL (13.5-18.0) L 12/13/22 05:01 Hct 30.6 % (42.0-54.0) L 12/13/22 05:01 MCV 87.2 fL (80.0-100.0) 12/13/22 05:01 MCH 30.1 pg (27.0-34.0) 12/13/22 05:01 MCHC 34.5 g/dL (33.0-35.0) 12/13/22 05:01 RDW 13.9 % (11.6-16.5) 12/13/22 05:01 Plt Count 138 X10^3/uL (150.0-450.0) L 12/13/22 05:01 MPV 8.3 fL (7.4-11.0) 12/13/22 05:01 Neut % (Auto) 64.3 % (42.0-75.0) 12/13/22 05:01 Lymph % (Auto) 18.7 % (21.0-51.0) L 12/13/22 05:01 [place] % (Auto) 9.7 % (0.0-13.0) 12/13/22 05:01 Eos % (Auto) 6.9 % (0.9-2.9) H 12/13/22 05:01 Baso % (Auto) 0.4 % (0.2-1.0) 12/13/22 05:01 Neut # (Auto) 3.6 x10^3/uL (2.2-4.8) 12/13/22 05:01 Lymph # (Auto) 1.0 X10^3/uL (1.3-2.9) L 12/13/22 05:01 [place] # (Auto) 0.5 x10^3/uL (0.3-0.8) 12/13/22 05:01 Eos # (Auto) 0.4 x10^3/uL (0.0-0.2) H 12/13/22 05:01 Baso # (Auto) 0.0 X10^3/uL (0.0-0.1) 12/13/22 05:01 Absolute Nucleated RBC 0.0 /100WBC 12/13/22 05:01 Sodium 137 mmol/L (136-145) 12/13/22 05:01 Corrected Sodium TNP 12/13/22 05:01 Potassium 3.4 mmol/L (3.5-5.1) L 12/13/22 05:01 Chloride 104 mmol/L (98-107) 12/13/22 05:01 Carbon Dioxide 27.6 mmol/L (21-32) 12/13/22 05:01 BUN 6 mg/dL (7-18) L 12/13/22 05:01 Creatinine 0.85 mg/dL (0.70-1.30) 12/13/22 05:01 Est GFR (MDRD) Af Amer > 60 (>60) 12/13/22 05:01 Est GFR (MDRD) Non-Af > 60 (>60) 12/13/22 05:01 Glucose 107 mg/dL (65-99) H 12/13/22 05:01 POC Glucose (mg/dL) 134 mg/dL (65-99) H 12/13/22 10:47 Lactic Acid 0.4 mmol/L (0.4-2.0) 12/10/22 14:40 Calcium 8.2 mg/dL (8.5-10.1) L 12/13/22 05:01 Corrected Calcium 9.2 mg/dL (8.5-10.1) 12/13/22 05:01 Phosphorus 3.6 mg/dL (2.6-4.7) 12/10/22 12:25 Magnesium 1.9 mg/dL (2.0-2.9) L 12/13/22 05:01 Total Bilirubin 0.60 mg/dL (0.2-1.0) 12/13/22 05:01 AST 23 Units/L (15-37) 12/13/22 05:01 ALT 29 Units/L (12-78) 12/13/22 05:01 Alkaline Phosphatase 75 Units/L (46-116) 12/13/22 05:01 Troponin I High Sens 14.6 ng/L (4.0-60.0) 12/10/22 12:25 B-Natriuretic Peptide 390 pg/mL (0-79) H 12/12/22 05:33 Total Protein 6.0 g/dL (6.4-8.2) L 12/13/22 05:01 Albumin 2.7 g/dL (3.4-5.0) L 12/13/22 05:01 Globulin 3.3 g/dL (2.5-4.5) 12/13/22 05:01 Albumin/Globulin Ratio 0.8 Ratio (1.1-2.1) L 12/13/22 05:01 Lipase 117 Units/L (73-393) 12/10/22 12:25 Specimen Type Clean catch urine 12/10/22 13:37 Urine Color Yellow (YELLOW) 12/10/22 13:37 Urine Appearance Clear (CLEAR) 12/10/22 13:37 Urine pH 7.0 (5.0 - 8.0) 12/10/22 13:37 Ur Specific [place] 1.010 (1.000-1.030) 12/10/22 13:37 Urine Protein 1+ (NEGATIVE) 12/10/22 13:37 Urine Glucose (UA) Negative (NEGATIVE) 12/10/22 13:37 Urine Ketones Negative (NEGATIVE) 12/10/22 13:37 Urine Blood Negative (NEGATIVE) 12/10/22 13:37 Urine Nitrite Negative (NEGATIVE) 12/10/22 13:37 Urine Bilirubin Negative (NEGATIVE) 12/10/22 13:37 Urine Urobilinogen Normal (NORMAL) 12/10/22 13:37 Ur Leukocyte Esterase Negative (NEGATIVE) 12/10/22 13:37 Urine RBC None seen /HPF (0-3) 12/10/22 13:37 Urine WBC None seen /HPF (0-5) 12/10/22 13:37 Ur Squamous Epith Cells Rare /HPF (NEGATIVE) 12/10/22 13:37 Urine Bacteria Negative /HPF (NEGATIVE) 12/10/22 13:37 Ur Culture Indicated? No/not indicated 12/10/22 13:37 Plan (1) Pneumonia: Status: Acute Qualifiers: Pneumonia type: due to unspecified organism Laterality: right Lung location: lower lobe of lung Qualified Code(s): J18.9 - Pneumonia, unspecified organism Plan: ADMIT, SUPPLEMENTAL OXYGEN, RESPIRATORY THERAPY, D51/2 NS AT 80 ML/HR, ROCEPHIN 1G IV DAILY, PULMICORT NEBS BID, XOPENEX NEBS Q6H, LOVENOX 40MG SC DAILY, PROTONIX 40MG IV DAILY, AND HIS HOME MEDICATIONS WERE RESUMED. (2) Generalized weakness: Status: Acute (3) Atrial fibrillation: Status: Acute Qualifiers: Atrial fibrillation type: unspecified Qualified Code(s): I48.91 - Unspecified atrial fibrillation (4) Hypertension: Status: Chronic Qualifiers: Hypertension type: primary hypertension (5) Hyperlipidemia: Status: Chronic Qualifiers: Hyperlipidemia type: mixed hyperlipidemia (6) Dementia: Status: Chronic Qualifiers: Dementia type: unspecified type Dementia severity: unspecified severity Dementia behavioral or psychological symptom: unspecified whether behavioral, psychotic, or mood disturbance or anxiety Qualified Code(s): F03.90 - Unspecified dementia, unspecified severity, without behavioral disturbance, psychotic disturbance, mood disturbance, and anxiety (7) CAD (coronary artery disease): Status: Chronic Qualifiers: Coronary Disease-Associated Artery/Lesion type: [place] artery [place] vs. transplanted heart: [place] heart Associated angina: unspecified whether angina present Qualified Code(s): I25.10 - Atherosclerotic heart disease of [place] coronary artery without angina pectoris
[2022-12-13] MEDS: MAGNESIUM SULFATE 1 GRAM/100 mL PREMIX 1 G/100 ML BAG IV PRN ×2 (11:54→13:14)
[2022-12-13] MEDS: ZOCOR TAB 40 MG PO SCH (20:37)
[2022-12-13] MEDS: ZESTRIL TAB 5 MG PO SCH (20:38)
[2022-12-13] MEDS: CORDARONE TAB 200 MG PO SCH (20:38)
[2022-12-13] MEDS: CARDURA PO SCH (20:39)
[2022-12-13] MEDS: VITAMIN B-12 PO SCH (20:39)
[2022-12-13] MEDS: FESOTERODINE 4 MG PO SCH (20:40)
[2022-12-13] MEDS: MILK OF MAGNESIA PO PRN (20:41)
[2022-12-14] MEDS: XOPENEX 1.25 MG/3 ML NEBULE NEB SCH ×5 (00:37→17:43)
[2022-12-14] MEDS: D5 1/2 NS 1,000 ML 1,000 ML IV SCH ×3 (02:43→11:44)
[2022-12-14 05:03] LABS: BASOPHILS % (AUTO) 0.5 % (0.2-1.0); EOSINOPHILS # (AUTO) 0.4 x10^3/uL (0.0-0.2); EOSINOPHILS % (AUTO) 7.7 % (0.9-2.9); HEMATOCRIT 29.5 % (42.0-54.0); HEMOGLOBIN 10.2 g/dL (13.5-18.0); LYMPHOCYTES # (AUTO) 1.1 X10^3/uL (1.3-2.9); LYMPHOCYTES % (AUTO) 20.7 % (21.0-51.0); MEAN CORPUSCULAR HGB CONC 34.5 g/dL (33.0-35.0); MEAN CORPUSCULAR VOLUME 87.1 fL (80.0-100.0); MEAN PLATELET VOLUME 8.2 fL (7.4-11.0); MONOCYTES # (AUTO) 0.6 x10^3/uL (0.3-0.8); MONOCYTES % (AUTO) 10.6 % (0.0-13.0); NEUTROPHILS # (AUTO) 3.2 x10^3/uL (2.2-4.8); NEUTROPHILS % (AUTO) 60.5 % (42.0-75.0); PLATELET COUNT 139 X10^3/uL (150.0-450.0); RED BLOOD COUNT 3.39 X10^6/uL (4.7-6.0); RED CELL DISTRIBUTION WIDTH 14.2 % (11.6-16.5); WHITE BLOOD COUNT 5.4 X10^3/uL (3.6-10.0)
[2022-12-14 05:18] LABS: ALANINE AMINOTRANSFERASE 28 Units/L (12-78); ALBUMIN 2.6 g/dL (3.4-5.0); ALKALINE PHOSPHATASE 77 Units/L (46-116); ASPARTATE AMINO TRANSFERASE 25 Units/L (15-37); BLOOD UREA NITROGEN 5 mg/dL (7-18); CALCIUM 7.8 mg/dL (8.5-10.1); CARBON DIOXIDE 29.6 mmol/L (21-32); CHLORIDE 103 mmol/L (98-107); COR CA(FOR HYPOALB) 8.9 mg/dL (8.5-10.1); CREATININE 0.87 mg/dL (0.70-1.30); GLUCOSE 91 mg/dL (65-99); POTASSIUM 3.9 mmol/L (3.5-5.1); SODIUM 136 mmol/L (136-145); TOTAL PROTEIN 5.8 g/dL (6.4-8.2); eGFR NON BLACK RACES > 60 (>60)
--- NOTE | 2022-12-14 06:06 | RAD ---
HISTORYSOBSTUDYCHEST, 1 [id number]/06/2023.FINDINGSThe trachea is midline. The cardiac silhouette is at the upper limits of normal in size. There is diffuse interstitial prominence and small bilateral pleural effusions. There is no pneumothorax. The bony thorax is grossly unremarkable.IMPRESSIONPersistent pulmonary edema and/or infiltrates with small bilateral pleural effusions.Electronically signed by: MICHELLE SALGADO (December 14, 2022 06:05:26)
[2022-12-14] MEDS: HEMOCYTE-PLUS PO SCH (08:30)
[2022-12-14] MEDS ORDERED: LEXAPRO ONE (08:31)
[2022-12-14] MEDS: EXELON PO SCH ×2 (08:45→20:06)
[2022-12-14] MEDS: SYNTHROID 75 mcg TAB PO SCH (08:45)
[2022-12-14] MEDS: LOPRESSOR TAB 25 MG PO SCH (08:45)
[2022-12-14] MEDS: ASPIRIN EC 81 MG PO SCH (08:45)
[2022-12-14] MEDS: VITAMIN D3 125 mcg (5,000 UNITS) PO SCH (08:46)
[2022-12-14] MEDS: LEXAPRO PO SCH (08:46)
[2022-12-14] MEDS: COLACE CAP 100 MG PO PRN (08:46)
[2022-12-14] MEDS: LOVENOX INJ 40 MG SYR SC SCH (08:47)
[2022-12-14] MEDS: ROCEPHIN VIAL 1 GRAM 1 G in NS 100 ML IV 100 ML IV SCH (08:47)
[2022-12-14] MEDS: PROTONIX INJ 40 MG VIAL IVP SCH (08:47)
[2022-12-14] MEDS: PULMICORT NEB TX 0.5 MG NEB SCH ×2 (09:23→21:47)
[2022-12-14] MEDS ORDERED: LASIX IVP ONE (10:33)
--- NOTE | 2022-12-14 11:02 | PCM.PROG ---
Progress Note Progress Note for Day of Date of Exam: 12/14/22 Subjective Subjective: PT IS A 77 YEAR OLD MALE WITH PMH OF CAD, HTN, SLEEP APNEA, ANEMIA, HYPERLIPIDEMIA, A-FIB, DM II, DEPRESSION, CARDIAC STENTS, CHOLECYSTECTOMY, PROSTATE SURGERY. PATIENT IS CHRONICALLY NON VERBAL. HE WAS ADMITTED FOR RIGHT LOWER LOBE PNEUMONIA AND GENERALIZED WEAKNESS. PT IS IN BED THIS MORNING. REPORTS HE APPEARS TO BE DOING BETTER. NO ACUTE EVENTS OVERNIGHT. LABS/IMAGING: WBC 5.4, HGB 10.2, PLT 139, NA 136, K 3.9, CREATININE 0.87, GLUCOSE 91, RESPIRATORY VIRAL PANEL AND BLOOD CULTURES WERE SET UP. A CHEST XRAY WAS OBTAINED AND REVEALED: Persistent pulmonary edema and/or infiltrates with small bilateral pleural effusions. HE IS CURRENTLY RECEIVING D51/2 NS AT 80 ML/HR, ROCEPHIN 1G IV DAILY, PULMICORT NEBS BID, XOPENEX NEBS Q6H, LOVENOX 40MG SC DAILY, PROTONIX 40MG IV DAILY, AND HIS HOME MEDICATIONS WERE RESUMED. HOME MEDICATIONS INCLUDE: AMIODARONE, ASPIRIN, VITAMIN D3, VITAMIN B12, COLACE, ARDURA, LEXAPRO, IBUPROFEN, LEVOTHYROXINE, LISINOPRIL, METOPROLOL, HEMOCYTE PLUS, MIRALAX, EXELON, SIMVASTATIN, AND TRAZODONE. PHYSICAL THERAPY TO EVALUATE HIM. WILL ORDER IV LASIX 20MG X 1 DOSE. OTHERWISE, WILL CONTINUE WITH CURRENT TREATMENT PLAN. CONTINUE TO FOLLOW-UP WITH AM LABS AND CHEST XRAY AND MONITOR. Past Medical Family Social History Allergies: Allergies amoxicillin [From Augmentin] Allergy (Verified 01/09/22 19:22) carbidopa Allergy (Verified 10/25/22 07:54) clavulanic acid [From Augmentin] Allergy (Verified 01/09/22 19:22) codeine Allergy (Verified 01/09/22 19:22) haloperidol [From Haldol] Allergy (Verified 01/09/22 19:22) lactose Allergy (Verified 01/09/22 19:22) levodopa Allergy (Verified 10/25/22 07:54) promethazine [From Phenergan] Allergy (Verified 01/09/22 19:22) shellfish derived Allergy (Verified 01/09/22 19:22) tramadol Allergy (Verified 10/25/22 07:54) vibegron [From Gemtesa] Allergy (Verified 01/09/22 19:22) Review of Systems ROS changes noted: SEE HPI Vital Signs and I&O's Vital Signs: Temperature 98.2 F Pulse Rate [Left Radial] 60 Pulse Rate 61 Respiratory Rate 20 Blood Pressure [Right Arm] 160/74 Blood Pressure [Left Arm] 135/63 Blood Pressure [Standing] 138/65 Blood Pressure [Sitting] 140/68 Blood Pressure [Lying] 135/73 Blood Pressure 171/76 O2 Sat by Pulse Oximetry 96 Intake and Output: Intake & Output 12/11/22 12/12/22 12/13/22 12/14/22 23:59 23:59 23:59 23:59 Intake Total 1520 / 1520 1500 / 1500 2003 658 / 658 Balance 1520 / 1520 1500 / 1500 2003 658 / 658 Physical Exam Oriented: Person and Place Eyes: Normal Ear: Normal Nose: Normal Throat: Normal Respiratory: Rhonchi Cardiovascular: Normal : Normal Auscultation: Bowel Sounds: Normal Tenderness: Normal Skin: Normal Musculoskeletal: Normal Psychiatric: Normal Mood Description: Calm Affect: Normal Speech Pattern: Clear and Appropriate Laboratory and Diagnostics Result Diagrams: 12/14/22 04:30 12/14/22 04:30 Labs: 12/10/22 14:45 Blood Blood Culture - Preliminary 12/10/22 14:40 Blood Blood Culture - Preliminary Laboratory WBC 5.4 X10^3/uL (3.6-10.0) 12/14/22 04:30 RBC 3.39 X10^6/uL (4.7-6.0) L 12/14/22 04:30 Hgb 10.2 g/dL (13.5-18.0) L 12/14/22 04:30 Hct 29.5 % (42.0-54.0) L 12/14/22 04:30 MCV 87.1 fL (80.0-100.0) 12/14/22 04:30 MCH 30.0 pg (27.0-34.0) 12/14/22 04:30 MCHC 34.5 g/dL (33.0-35.0) 12/14/22 04:30 RDW 14.2 % (11.6-16.5) 12/14/22 04:30 Plt Count 139 X10^3/uL (150.0-450.0) L 12/14/22 04:30 MPV 8.2 fL (7.4-11.0) 12/14/22 04:30 Neut % (Auto) 60.5 % (42.0-75.0) 12/14/22 04:30 Lymph % (Auto) 20.7 % (21.0-51.0) L 12/14/22 04:30 [place] % (Auto) 10.6 % (0.0-13.0) 12/14/22 04:30 Eos % (Auto) 7.7 % (0.9-2.9) H 12/14/22 04:30 Baso % (Auto) 0.5 % (0.2-1.0) 12/14/22 04:30 Neut # (Auto) 3.2 x10^3/uL (2.2-4.8) 12/14/22 04:30 Lymph # (Auto) 1.1 X10^3/uL (1.3-2.9) L 12/14/22 04:30 [place] # (Auto) 0.6 x10^3/uL (0.3-0.8) 12/14/22 04:30 Eos # (Auto) 0.4 x10^3/uL (0.0-0.2) H 12/14/22 04:30 Baso # (Auto) 0.0 X10^3/uL (0.0-0.1) 12/14/22 04:30 Absolute Nucleated RBC 0.0 /100WBC 12/14/22 04:30 Sodium 136 mmol/L (136-145) 12/14/22 04:30 Corrected Sodium TNP 12/14/22 04:30 Potassium 3.9 mmol/L (3.5-5.1) 12/14/22 04:30 Chloride 103 mmol/L (98-107) 12/14/22 04:30 Carbon Dioxide 29.6 mmol/L (21-32) 12/14/22 04:30 BUN 5 mg/dL (7-18) L 12/14/22 04:30 Creatinine 0.87 mg/dL (0.70-1.30) 12/14/22 04:30 Est GFR (MDRD) Af Amer > 60 (>60) 12/14/22 04:30 Est GFR (MDRD) Non-Af > 60 (>60) 12/14/22 04:30 Glucose 91 mg/dL (65-99) 12/14/22 04:30 POC Glucose (mg/dL) 92 mg/dL (65-99) 12/14/22 06:09 Lactic Acid 0.4 mmol/L (0.4-2.0) 12/10/22 14:40 Calcium 7.8 mg/dL (8.5-10.1) L 12/14/22 04:30 Corrected Calcium 8.9 mg/dL (8.5-10.1) 12/14/22 04:30 Phosphorus 3.6 mg/dL (2.6-4.7) 12/10/22 12:25 Magnesium 1.9 mg/dL (2.0-2.9) L 12/13/22 05:01 Total Bilirubin 0.50 mg/dL (0.2-1.0) 12/14/22 04:30 AST 25 Units/L (15-37) 12/14/22 04:30 ALT 28 Units/L (12-78) 12/14/22 04:30 Alkaline Phosphatase 77 Units/L (46-116) 12/14/22 04:30 Troponin I High Sens 14.6 ng/L (4.0-60.0) 12/10/22 12:25 B-Natriuretic Peptide 390 pg/mL (0-79) H 12/12/22 05:33 Total Protein 5.8 g/dL (6.4-8.2) L 12/14/22 04:30 Albumin 2.6 g/dL (3.4-5.0) L 12/14/22 04:30 Globulin 3.2 g/dL (2.5-4.5) 12/14/22 04:30 Albumin/Globulin Ratio 0.8 Ratio (1.1-2.1) L 12/14/22 04:30 Lipase 117 Units/L (73-393) 12/10/22 12:25 Specimen Type Clean catch urine 12/10/22 13:37 Urine Color Yellow (YELLOW) 12/10/22 13:37 Urine Appearance Clear (CLEAR) 12/10/22 13:37 Urine pH 7.0 (5.0 - 8.0) 12/10/22 13:37 Ur Specific [place] 1.010 (1.000-1.030) 12/10/22 13:37 Urine Protein 1+ (NEGATIVE) 12/10/22 13:37 Urine Glucose (UA) Negative (NEGATIVE) 12/10/22 13:37 Urine Ketones Negative (NEGATIVE) 12/10/22 13:37 Urine Blood Negative (NEGATIVE) 12/10/22 13:37 Urine Nitrite Negative (NEGATIVE) 12/10/22 13:37 Urine Bilirubin Negative (NEGATIVE) 12/10/22 13:37 Urine Urobilinogen Normal (NORMAL) 12/10/22 13:37 Ur Leukocyte Esterase Negative (NEGATIVE) 12/10/22 13:37 Urine RBC None seen /HPF (0-3) 12/10/22 13:37 Urine WBC None seen /HPF (0-5) 12/10/22 13:37 Ur Squamous Epith Cells Rare /HPF (NEGATIVE) 12/10/22 13:37 Urine Bacteria Negative /HPF (NEGATIVE) 12/10/22 13:37 Ur Culture Indicated? No/not indicated 12/10/22 13:37 Resp Viral Panel (PCR) See scanned report 12/10/22 17:40 Plan (1) Pneumonia: Status: Acute Qualifiers: Pneumonia type: due to unspecified organism Laterality: right Lung location: lower lobe of lung Qualified Code(s): J18.9 - Pneumonia, unspecified organism Plan: ADMIT, SUPPLEMENTAL OXYGEN, RESPIRATORY THERAPY, D51/2 NS AT 80 ML/HR, ROCEPHIN 1G IV DAILY, PULMICORT NEBS BID, XOPENEX NEBS Q6H, LOVENOX 40MG SC DAILY, PROTONIX 40MG IV DAILY, AND HIS HOME MEDICATIONS WERE RESUMED. (2) Generalized weakness: Status: Acute (3) Atrial fibrillation: Status: Acute Qualifiers: Atrial fibrillation type: unspecified Qualified Code(s): I48.91 - Unspecified atrial fibrillation (4) Hypertension: Status: Chronic Qualifiers: Hypertension type: primary hypertension (5) Hyperlipidemia: Status: Chronic Qualifiers: Hyperlipidemia type: mixed hyperlipidemia (6) Dementia: Status: Chronic Qualifiers: Dementia type: unspecified type Dementia severity: unspecified severity Dementia behavioral or psychological symptom: unspecified whether behavioral, psychotic, or mood disturbance or anxiety Qualified Code(s): F03.90 - Unspecified dementia, unspecified severity, without behavioral disturbance, psychotic disturbance, mood disturbance, and anxiety (7) CAD (coronary artery disease): Status: Chronic Qualifiers: Coronary Disease-Associated Artery/Lesion type: [place] artery [place] vs. transplanted heart: [place] heart Associated angina: unspecified whether angina present Qualified Code(s): I25.10 - Atherosclerotic heart disease of [place] coronary artery without angina pectoris
[2022-12-14] MEDS: CORDARONE TAB 200 MG PO SCH (20:05)
[2022-12-14] MEDS: ZESTRIL TAB 5 MG PO SCH (20:06)
[2022-12-14] MEDS: ZOCOR TAB 40 MG PO SCH (20:06)
[2022-12-14] MEDS: CARDURA PO SCH (20:06)
[2022-12-14] MEDS: VITAMIN B-12 PO SCH (20:07)
--- NOTE | 2022-12-14 21:13 | CT ---
History: INCREASED CONFUSION Relevant Clinical InformationExam :BRAIN W/O CONTechnique: Thin section axial ct images of the brain were obtained from the foramen magnum to the vertex without contrast. Sagittal and coronal reconstructions were also performed.Comparison: 10/25/2022Findings:The ventricles are within normal limits in size. No midline shift, mass effect or extra-axial fluid collections. No evidence of acute hemorrhage or acute macroinfarction. Mild cortical atrophy compatible with patient's age. Decreased attenuation in the periventricular and subcortical white matter consistent with microvascular ischemic white matter changes. Remote lacunar type infarct within the left thalamus and left nadege.The visualized paranasal sinuses and mastoids are unremarkable. The calvarium is intact. Is sandra holes present in the right frontal and right parietal regions.Impression:Normal noncontrast CT of the brain; no acute intracranial pathology mild cortical atrophy with microvascular ischemic white matter changes.Remote lacunar type infarct left thalamus.No acute intracranial pathology.Electronically signed by: Juan Drew (December 14, 2022 21:11:30)
[2022-12-14] MEDS: FESOTERODINE 4 MG PO SCH (22:26)
[2022-12-15] MEDS: XOPENEX 1.25 MG/3 ML NEBULE NEB SCH ×5 (00:15→21:24)
[2022-12-15 05:04] LABS: BASOPHILS # (AUTO) 0.1 X10^3/uL (0.0-0.1); BASOPHILS % (AUTO) 2.2 % (0.2-1.0); EOSINOPHILS # (AUTO) 0.4 x10^3/uL (0.0-0.2); EOSINOPHILS % (AUTO) 7.1 % (0.9-2.9); HEMATOCRIT 32.2 % (42.0-54.0); LYMPHOCYTES % (AUTO) 17.9 % (21.0-51.0); MEAN CORPUSCULAR HEMOGLOBIN 29.7 pg (27.0-34.0); MEAN CORPUSCULAR HGB CONC 34.2 g/dL (33.0-35.0); MEAN CORPUSCULAR VOLUME 86.9 fL (80.0-100.0); MEAN PLATELET VOLUME 8.2 fL (7.4-11.0); MONOCYTES # (AUTO) 0.5 x10^3/uL (0.3-0.8); MONOCYTES % (AUTO) 8.9 % (0.0-13.0); NEUTROPHILS # (AUTO) 3.5 x10^3/uL (2.2-4.8); NEUTROPHILS % (AUTO) 63.9 % (42.0-75.0); PLATELET COUNT 142 X10^3/uL (150.0-450.0); RED CELL DISTRIBUTION WIDTH 14.2 % (11.6-16.5); WHITE BLOOD COUNT 5.4 X10^3/uL (3.6-10.0)
[2022-12-15 05:13] LABS: ALANINE AMINOTRANSFERASE 34 Units/L (12-78); ALBUMIN 2.9 g/dL (3.4-5.0); ALKALINE PHOSPHATASE 84 Units/L (46-116); ASPARTATE AMINO TRANSFERASE 31 Units/L (15-37); BLOOD UREA NITROGEN 5 mg/dL (7-18); CALCIUM 8.4 mg/dL (8.5-10.1); CARBON DIOXIDE 32.9 mmol/L (21-32); CHLORIDE 103 mmol/L (98-107); COR CA(FOR HYPOALB) 9.3 mg/dL (8.5-10.1); CREATININE 0.88 mg/dL (0.70-1.30); GLUCOSE 93 mg/dL (65-99); POTASSIUM 4.2 mmol/L (3.5-5.1); SODIUM 137 mmol/L (136-145); TOTAL PROTEIN 6.4 g/dL (6.4-8.2); eGFR NON BLACK RACES > 60 (>60)
[2022-12-15] MEDS: D5 1/2 NS 1,000 ML 1,000 ML IV SCH ×2 (05:30→22:28)
--- NOTE | 2022-12-15 06:29 | RAD ---
HISTORYShortness of breath, pneumoniaSTUDYChest AP [id number]/07/2023FINDINGSHear t size is normal. Aorta is calcified. Amada are normal. Abnormal parenchymal density in the right lower lung field likely represents combination of infiltrate and right pleural effusion. There is now small perihilar right upper lobe infiltrate present. Perihilar interstitial lung changes on the left unchanged. Increased retrocardiac density obscuring the left hemidiaphragm is again identified could be on the basis of pleural effusion, consolidation, atelectasis or combination. Bony thorax is unremarkable with the exception of right-sided AC joint and glenohumeral joint degenerative joint diseaseIMPRESSIONNew perihilar right upper lobe infiltrateNo change increased density right lung base likely a combination of infiltrate and pleural effusionNo change left perihilar infiltrateNo change increased density retrocardiac area left lower lobe. Differential diagnosis as aboveElectronically signed by: MELECIO SHAW (December 15, 2022 06:28:40)
[2022-12-15] MEDS: PULMICORT NEB TX 0.5 MG NEB SCH ×2 (09:00→21:24)
[2022-12-15] MEDS ORDERED: DULCOLAX SUPPOSITORY 10 MG RECTAL ONE (09:23)
[2022-12-15] MEDS ORDERED: LASIX IVP ONE (09:23)
[2022-12-15] MEDS ORDERED: TYLENOL 325 MG TAB PO PRN (09:25)
[2022-12-15] MEDS ORDERED: LEXAPRO ONE (09:29)
[2022-12-15] MEDS: ROCEPHIN VIAL 1 GRAM 1 G in NS 100 ML IV 100 ML IV SCH (09:35)
[2022-12-15] MEDS: PROTONIX INJ 40 MG VIAL IVP SCH (09:36)
[2022-12-15] MEDS: LOVENOX INJ 40 MG SYR SC SCH (09:37)
[2022-12-15] MEDS: LEXAPRO PO SCH (09:37)
[2022-12-15] MEDS: LOPRESSOR TAB 25 MG PO SCH (09:38)
[2022-12-15] MEDS: VITAMIN D3 125 mcg (5,000 UNITS) PO SCH (09:38)
[2022-12-15] MEDS: EXELON PO SCH ×2 (09:38→20:44)
[2022-12-15] MEDS: ASPIRIN EC 81 MG PO SCH (09:38)
[2022-12-15] MEDS: SYNTHROID 75 mcg TAB PO SCH (09:38)
[2022-12-15] MEDS: HEMOCYTE-PLUS PO SCH (09:39)
--- NOTE | 2022-12-15 15:37 | RAD ---
HISTORYCONSTIPATIONSTUDYKUBCOMPARISON r.br.br.br.br.br imagesFINDINGSGas and stool in non-distended colon and rectum.Gas in scattered loops [id number] distended small bowel.No gross free.No abnormal calcifications.No acute osseous abnormality.Imaged portion of the lungs are clear.IMPRESSIONGas in scattered loops [id number] distended small bowel. Findings could represent a nonspecific enteritis, ileus or mechanical obstruction.Electronically signed by: Lobo Peralta (December 15, 2022 15:36:13)
[2022-12-15] MEDS: ZESTRIL TAB 5 MG PO SCH (20:42)
[2022-12-15] MEDS: CARDURA PO SCH (20:43)
[2022-12-15] MEDS: CORDARONE TAB 200 MG PO SCH (20:44)
[2022-12-15] MEDS: VITAMIN B-12 PO SCH (20:44)
[2022-12-15] MEDS: ZOCOR TAB 40 MG PO SCH (20:44)
[2022-12-15] MEDS: FESOTERODINE 4 MG PO SCH (20:45)
[2022-12-15] MEDS: MOTRIN TAB 800 MG PO PRN (21:27)
[2022-12-16] MEDS: XOPENEX 1.25 MG/3 ML NEBULE NEB SCH ×4 (00:32→17:09)
[2022-12-16] MEDS: D5 1/2 NS 1,000 ML 1,000 ML IV SCH ×2 (01:02→16:37)
[2022-12-16 04:55] LABS: BASOPHILS % (AUTO) 0.6 % (0.2-1.0); EOSINOPHILS # (AUTO) 0.3 x10^3/uL (0.0-0.2); EOSINOPHILS % (AUTO) 6.5 % (0.9-2.9); HEMATOCRIT 30.8 % (42.0-54.0); HEMOGLOBIN 10.6 g/dL (13.5-18.0); LYMPHOCYTES # (AUTO) 1.1 X10^3/uL (1.3-2.9); LYMPHOCYTES % (AUTO) 22.9 % (21.0-51.0); MEAN CORPUSCULAR HEMOGLOBIN 29.9 pg (27.0-34.0); MEAN CORPUSCULAR HGB CONC 34.6 g/dL (33.0-35.0); MEAN CORPUSCULAR VOLUME 86.4 fL (80.0-100.0); MONOCYTES # (AUTO) 0.5 x10^3/uL (0.3-0.8); MONOCYTES % (AUTO) 10.5 % (0.0-13.0); NEUTROPHILS # (AUTO) 2.8 x10^3/uL (2.2-4.8); NEUTROPHILS % (AUTO) 59.5 % (42.0-75.0); PLATELET COUNT 142 X10^3/uL (150.0-450.0); RED BLOOD COUNT 3.56 X10^6/uL (4.7-6.0); RED CELL DISTRIBUTION WIDTH 13.9 % (11.6-16.5); WHITE BLOOD COUNT 4.7 X10^3/uL (3.6-10.0)
[2022-12-16 05:11] LABS: ALANINE AMINOTRANSFERASE 37 Units/L (12-78); ALBUMIN 2.7 g/dL (3.4-5.0); ALKALINE PHOSPHATASE 78 Units/L (46-116); ASPARTATE AMINO TRANSFERASE 30 Units/L (15-37); BLOOD UREA NITROGEN 7 mg/dL (7-18); CALCIUM 8.1 mg/dL (8.5-10.1); CARBON DIOXIDE 30.9 mmol/L (21-32); CHLORIDE 103 mmol/L (98-107); COR CA(FOR HYPOALB) 9.1 mg/dL (8.5-10.1); GLUCOSE 91 mg/dL (65-99); POTASSIUM 3.9 mmol/L (3.5-5.1); SODIUM 140 mmol/L (136-145); TOTAL PROTEIN 6.1 g/dL (6.4-8.2); eGFR NON BLACK RACES > 60 (>60)
--- NOTE | 2022-12-16 05:25 | RAD ---
HISTORYCONSTIPATIONSTUDYKUBCOMPARISON r.br.br.br.br.br multiple air-filled loops of small bowel with prominent amount of retained fecal material throughout the colon. Distal colonic gas is noted to be present. No pathological soft tissue mass or calcification can be observed. The bony structures are grossly intact.IMPRESSIONNonspecific bowel gas pattern with multiple air-filled loops of small bowel and prominent amount of retained fecal material throughout the colon is observed. Distal colonic gas is noted to be present.Electronically signed by: YOCASTA SU (December 16, 2022 05:24:27)
--- NOTE | 2022-12-16 05:26 | RAD ---
HISTORYShortness of breathSTUDYCHEST, 1 [id number]/08/2023FINDINGSThe trachea is midline. The cardiac silhouette is enlarged with a tortuous thoracic aorta. Pleural parenchymal opacity the right lower lobe is observed consistent with bronchopneumonia and peripneumonic effusion. The bony thorax is unremarkable.IMPRESSIONRight lower lobe bronchopneumonia and parapneumonic effusion.Electronically signed by: YOCASTA SU (December 16, 2022 05:25:16)
[2022-12-16] MEDS: PULMICORT NEB TX 0.5 MG NEB SCH ×2 (08:09→20:45)
[2022-12-16] MEDS: ROCEPHIN VIAL 1 GRAM 1 G in NS 100 ML IV 100 ML IV SCH (08:52)
[2022-12-16] MEDS: PROTONIX INJ 40 MG VIAL IVP SCH (08:52)
[2022-12-16] MEDS: LOVENOX INJ 40 MG SYR SC SCH (08:55)
[2022-12-16] MEDS: HEMOCYTE-PLUS PO SCH (08:55)
[2022-12-16] MEDS: ASPIRIN EC 81 MG PO SCH (08:55)
[2022-12-16] MEDS: EXELON PO SCH ×2 (08:55→20:35)
[2022-12-16] MEDS: LOPRESSOR TAB 25 MG PO SCH ×2 (08:56→14:00)
[2022-12-16] MEDS: LEXAPRO PO SCH (08:56)
[2022-12-16] MEDS: SYNTHROID 75 mcg TAB PO SCH (09:04)
[2022-12-16] MEDS: VITAMIN D3 125 mcg (5,000 UNITS) PO SCH (09:05)
--- NOTE | 2022-12-16 18:34 | PCM.PROG ---
Progress Note - Progress Note for Day of Date of Exam: 12/11/22 - Subjective Subjective: IS CURRENTLY OBSERVATION STATUS FOR TREATMENT OF PNEUMONIA AND GENERALIZED WEAKNESS. HE HAS A PMH OF ATRIAL FIBRILLATION, HTN, HYPERLIPIDEMIA, DEMENTIA, AND CAD. TODAY, HE IS LYING IN BED WITH EYES CLOSED ON MORNING ROUNDS. HE AWAKENS TO VERBAL STIMULI. HIS SPOUSE IS AT BEDSIDE AND R EPORTS THAT HE HAS HAD AN UNEVENTFUL NIGHT. ON EXAMINATION, HE IS NOTED TO BE BRADYCARDIC WITH HR IN THE 50s. BILATERAL LUNGS ARE NOTED WITH DIMINISHED LUNG SOUNDS THROUGHOUT. ABDOMEN IS ROUND, SOFT, AND NON-TENDER WITH NORMAL BOWEL SOUNDS NOTED IN ALL QUADRANTS. TRACE UPPER AND LOWER EXTREMITY EDEMA NOTED. NO SIGNIFICANT EDEMA. HE DOES HAVE DIFFUSE UPPER AND LOWER EXTREMITY MUSCLE ATROPHY. HIS VITALS THIS MORNING ARE: 97.6-67-18-96%-178/82. LABS WERE OBTAINED. WBC 6.0, RBC 3.69, HGB 11.0, HCT 31.8, PLT COUNT 152, SODIUM 139, POTASSIUM 3.4, CHLORIDE 104, BUN 12, CREATININE 0.96, GLUCOSE 103, CALCIUM 8.3, MAGNESIUM 1.8, AST 29, ALT 30, ALK PHOS 71, TOTAL PROTEIN 6.2, ALBUMIN 2.9. BLOOD CULTURES AND A RESPIRATORY VIRAL PANEL ARE PENDING. SHE IS CURRENTLY RECEIVING D51/2 NS AT 80 ML/HR, ROCEPHIN 1G IV DAILY, PULMICORT NEBS BID, XOPENEX NEBS Q6H, LOVENOX 40MG SC DAILY, PROTONIX 40MG IV DAILY, AND HIS HOME MEDICATIONS WERE RESUMED. HOME MEDICATIONS INCLUDE: AMIODARONE, ASPIRIN, VITAMIN D3, VITAMIN B12, COLACE, ARDURA, LEXAPRO, IBUPROFEN, LEVOTHYROXINE, LISINOPRIL, METOPROLOL, HEMOCYTE PLU S, MIRALAX, EXELON, SIMVASTATIN, AND TRAZODONE. WE WILL HAVE PHYSICAL THERAPY EVALUATE HIM. OTHERWISE, WE WILL FOLLOW-UP WITH AM LABS AND CHEST XRAY AND CONTINUE TO MONITOR. TIME SPENT ON CLINICAL ASSESSMENT, REVIWING LABS AND IMAGING, DECISION MAKING, AND DOCUMENTATION GREATER THAN 45 MINUTES. - Past Medical Family Social History Past Med/Fam/Surg Hx: No changes since H&P Allergies: Allergies amoxicillin [From Augmentin] Allergy (Verified 01/09/22 19:22) carbidopa Allergy (Verified 10/25/22 07:54) clavulanic acid [From Augmentin] Allergy (Verified 01/09/22 19:22) codeine Allergy (Verified 01/09/22 19:22) haloperidol [From Haldol] Allergy (Verified 01/09/22 19:22) lactose Allergy (Verified 01/09/22 19:22) levodopa Allergy (Verified 10/25/22 07:54) promethazine [From Phenergan] Allergy (Verified 01/09/22 19:22) shellfish derived Allergy (Verified 01/09/22 19:22) tramadol Allergy (Verified 10/25/22 07:54) vibegron [From Gemtesa] Allergy (Verified 01/09/22 19:22) - Review of Systems ROS: No change since H&P - Vital Signs and I&O's Vital Signs: Temperature 97.6 F Pulse Rate [Left Radial] 58 Pulse Rate 62 Respiratory Rate 18 Blood Pressure [Right Arm] 155/70 Blood Pressure [Left Arm] 169/83 Blood Pressure [Standing] 138/65 Blood Pressure [Sitting] 140/68 Blood Pressure [Lying] 135/73 Blood Pressure 171/76 O2 Sat by Pulse Oximetry 97 Intake and Output: Intake & Output 12/14/22 12/15/22 12/16/22 12/17/22 11:59 11:59 11:59 11:59 Intake Total 2341 / 2341 1796 / 1796 882 / 882 Balance 2341 / 2341 1796 882 / 882 - Physical Exam Oriented: Person, Place Eyes: Normal Ear: Normal Nose: Normal Throat: Normal Respiratory: Diminished Cardiovascular: Bradycardia : Normal Auscultation: Bowel Sounds: Normal Palpation: Normal Tenderness: Normal Skin: Normal Musculoskeletal: Normal Psychiatric: Normal Mood Description: Calm Affect: Normal Speech Pattern: Clear, Appropriate - Laboratory and Diagnostics Result Diagrams: 12/16/22 04:38 12/16/22 04:38 Labs: 12/10/22 14:45 Blood Blood Culture - Final 12/10/22 14:40 Blood Blood Culture - Final Laboratory WBC 4.7 X10^3/uL (3.6-10.0) 12/16/22 04:38 RBC 3.56 X10^6/uL (4.7-6.0) L 12/16/22 04:38 Hgb 10.6 g/dL (13.5-18.0) L 12/16/22 04:38 Hct 30.8 % (42.0-54.0) L 12/16/22 04:38 MCV 86.4 fL (80.0-100.0) 12/16/22 04:38 MCH 29.9 pg (27.0-34.0) 12/16/22 04:38 MCHC 34.6 g/dL (33.0-35.0) 12/16/22 04:38 RDW 13.9 % (11.6-16.5) 12/16/22 04:38 Plt Count 142 X10^3/uL (150.0-450.0) L 12/16/22 04:38 MPV 8.0 fL (7.4-11.0) 12/16/22 04:38 Neut % (Auto) 59.5 % (42.0-75.0) 12/16/22 04:38 Lymph % (Auto) 22.9 % (21.0-51.0) 12/16/22 04:38 [place] % (Auto) 10.5 % (0.0-13.0) 12/16/22 04:38 Eos % (Auto) 6.5 % (0.9-2.9) H 12/16/22 04:38 Baso % (Auto) 0.6 % (0.2-1.0) 12/16/22 04:38 Neut # (Auto) 2.8 x10^3/uL (2.2-4.8) 12/16/22 04:38 Lymph # (Auto) 1.1 X10^3/uL (1.3-2.9) L 12/16/22 04:38 [place] # (Auto) 0.5 x10^3/uL (0.3-0.8) 12/16/22 04:38 Eos # (Auto) 0.3 x10^3/uL (0.0-0.2) H 12/16/22 04:38 Baso # (Auto) 0.0 X10^3/uL (0.0-0.1) 12/16/22 04:38 Absolute Nucleated RBC 0.1 /100WBC 12/16/22 04:38 Sodium 140 mmol/L (136-145) 12/16/22 04:38 Corrected Sodium TNP 12/16/22 04:38 Potassium 3.9 mmol/L (3.5-5.1) 12/16/22 04:38 Chloride 103 mmol/L (98-107) 12/16/22 04:38 Carbon Dioxide 30.9 mmol/L (21-32) 12/16/22 04:38 BUN 7 mg/dL (7-18) 12/16/22 04:38 Creatinine 0.90 mg/dL (0.70-1.30) 12/16/22 04:38 Est GFR (MDRD) Af Amer > 60 (>60) 12/16/22 04:38 Est GFR (MDRD) Non-Af > 60 (>60) 12/16/22 04:38 Glucose 91 mg/dL (65-99) 12/16/22 04:38 POC Glucose (mg/dL) 114 mg/dL (65-99) H 12/16/22 16:26 Lactic Acid 0.4 mmol/L (0.4-2.0) 12/10/22 14:40 Calcium 8.1 mg/dL (8.5-10.1) L 12/16/22 04:38 Corrected Calcium 9.1 mg/dL (8.5-10.1) 12/16/22 04:38 Phosphorus 3.6 mg/dL (2.6-4.7) 12/10/22 12:25 Magnesium 1.9 mg/dL (2.0-2.9) L 12/13/22 05:01 Total Bilirubin 0.50 mg/dL (0.2-1.0) 12/16/22 04:38 AST 30 Units/L (15-37) 12/16/22 04:38 ALT 37 Units/L (12-78) 12/16/22 04:38 Alkaline Phosphatase 78 Units/L (46-116) 12/16/22 04:38 Troponin I High Sens 14.6 ng/L (4.0-60.0) 12/10/22 12:25 B-Natriuretic Peptide 446 pg/mL (0-79) H 12/15/22 04:41 Total Protein 6.1 g/dL (6.4-8.2) L 12/16/22 04:38 Albumin 2.7 g/dL (3.4-5.0) L 12/16/22 04:38 Globulin 3.4 g/dL (2.5-4.5) 12/16/22 04:38 Albumin/Globulin Ratio 0.8 Ratio (1.1-2.1) L 12/16/22 04:38 Lipase 117 Units/L (73-393) 12/10/22 12:25 Specimen Type Clean catch urine 12/10/22 13:37 Urine Color Yellow (YELLOW) 12/10/22 13:37 Urine Appearance Clear (CLEAR) 12/10/22 13:37 Urine pH 7.0 (5.0 - 8.0) 12/10/22 13:37 Ur Specific [place] 1.010 (1.000-1.030) 12/10/22 13:37 Urine Protein 1+ (NEGATIVE) 12/10/22 13:37 Urine Glucose (UA) Negative (NEGATIVE) 12/10/22 13:37 Urine Ketones Negative (NEGATIVE) 12/10/22 13:37 Urine Blood Negative (NEGATIVE) 12/10/22 13:37 Urine Nitrite Negative (NEGATIVE) 12/10/22 13:37 Urine Bilirubin Negative (NEGATIVE) 12/10/22 13:37 Urine Urobilinogen Normal (NORMAL) 12/10/22 13:37 Ur Leukocyte Esterase Negative (NEGATIVE) 12/10/22 13:37 Urine RBC None seen /HPF (0-3) 12/10/22 13:37 Urine WBC None seen /HPF (0-5) 12/10/22 13:37 Ur Squamous Epith Cells Rare /HPF (NEGATIVE) 12/10/22 13:37 Urine Bacteria Negative /HPF (NEGATIVE) 12/10/22 13:37 Ur Culture Indicated? No/not indicated 12/10/22 13:37 Resp Viral Panel (PCR) See scanned report 12/10/22 17:40 - Plan (1) Pneumonia Status: Acute Qualifiers: Pneumonia type: due to unspecified organism Laterality: right Lung location: lower lobe of lung Qualified Code(s): J18.9 - Pneumonia, unspecified organism Plan: SUPPLEMENTAL OXYGEN, RESPIRATORY THERAPY, D51/2 NS AT 80 ML/HR, ROCEPHIN 1G IV DAILY, PULMICORT NEBS BID, XOPENEX NEBS Q6H, LOVENOX 40MG SC DAILY, PROTONIX 40MG IV DAILY, AND HIS HOME MEDICATIONS WERE RESUMED. (2) Generalized weakness Status: Acute (3) Atrial fibrillation Status: Acute Qualifiers: Atrial fibrillation type: unspecified Qualified Code(s): I48.91 - Unspecified atrial fibrillation (4) Hypertension Status: Chronic Qualifiers: Hypertension type: primary hypertension (5) Hyperlipidemia Status: Chronic Qualifiers: Hyperlipidemia type: mixed hyperlipidemia (6) Dementia Status: Chronic Qualifiers: Dementia type: unspecified type Dementia severity: unspecified severity Dementia behavioral or psychological symptom: unspecified whether behavioral, psychotic, or mood disturbance or anxiety Qualified Code(s): F03.90 - Unspecified dementia, unspecified severity, without behavioral disturbance, psychotic disturbance, mood disturbance, and anxiety (7) CAD (coronary artery disease) Status: Chronic Qualifiers: Coronary Disease-Associated Artery/Lesion type: [place] artery [place] vs. tr ansplanted heart: [place] heart Associated angina: unspecified whether angina present Qualified Code(s): I25.10 - Atherosclerotic heart disease of [place] coronary artery without angina pectoris
--- NOTE | 2022-12-16 18:48 | PCM.PROG ---
Progress Note - Progress Note for Day of Date of Exam: 12/16/22 - Subjective Subjective: IS CURRENTLY INPATIENT STATUS FOR TREATMENT OF STREPTOCOCCUS PNEUMONIA FAILED OUTPATIENT TREATMENT, CHF, AND GENERALIZED WEAKNESS. HE HAS ALSO HAD SOME CONSTIPATION SINCE ADMISSION. HE HAS A PMH OF ATRIAL FIBRILLATION, HTN, HYPERLIPIDEMIA, DEMENTIA, AND CAD. TODAY, HE IS LYING IN BED WITH EYES CLOSED ON MORNING ROUNDS. HE AWAKENS TO VERBAL STIMULI. HIS SPOUSE IS AT BEDSIDE AND REPORTS THAT HE HAS HAD AN UNEVENTFUL NIGHT. SHE REPORTS THAT HE CONTINUES TO HAVE DYSPHAGIA. HE IS SCHEDULED FOR A REGULAR BARIUM SWALLOW TEST TODAY, BUT HE ACTUALLY NEEDS A MODIFIED BARIUM SWALLOW TEST, WHICH IS NOT AVAILABLE AT OUR FACILITY. ON EXAMINATION, HEART IS REGULAR IN RATE AND RHYTHM. BILATERAL LUNGS ARE NOTED WITH LUNG RHONCHI THROUGHOUT. ABDOMEN IS ROUND, SOFT, AND NON-TENDER WITH NORMAL BOWEL SOUNDS NOTED IN ALL QUADRANTS. TRACE UPPER AND LOWER EXTREMITY EDEMA NOTED. NO SIGNIFICANT EDEMA. HE DOES HAVE DIFFUSE UPPER AND LOWER EXTREMITY MUSCLE ATROPHY. HIS VITALS THIS MORNING ARE: 97.4-62-18-94%-158/74. LABS WERE OBTAINED. WBC 4.7, RBC 3.56, HGB 10.6, HCT 30.8, PLT COUNT 142, SODIUM 140, POTASSIUM 3.9, BUN 7, CREATININE 0.90, GLUCOSE 91, CALCIUM 8.1, AST 30, ALT 37, ALK PHOS 78, TOTAL PROTEIN 6.1, ALBUMIN 2.7. A CHEST XRAY WAS OBTAINED AND REVEALED: Right lower lobe bronchopneumonia and parapneumonic effusion. A KUB WAS OBTAINED AND REVEALED: Nonspecific bowel gas pattern with multiple air-filled loops of small bowel and prominent amount of retained fecal material throughout the colon is observed. Distal colonic gas is noted to be present. SHE IS CURRENTLY RECEIVING D51/2 NS AT 75 ML/HR, ROCEPHIN 1G IV DAILY, PULMICORT NEBS BID, XOPENEX NEBS Q6H, LOVENOX 40MG SC DAILY, P ROTONIX 40MG IV DAILY, THE POTASSIUM AND MAGNESIUM PROTOCOLS, AND HIS HOME MEDICATIONS WERE RESUMED. HOME MEDICATIONS INCLUDE: AMIODARONE, ASPIRIN, VITAMIN D3, VITAMIN B12, COLACE, ARDURA, LEXAPRO, IBUPROFEN, LEVOTHYROXINE, LISINOPRIL, METOPROLOL, HEMOCYTE PLUS, MIRALAX, EXELON, SIMVASTATIN, AND TRAZODONE. WE WILL HAVE PHYSICAL THERAPY EVALUATE HIM. OTHERWISE, WE WILL FOLLOW-UP WITH AM LABS AND CHEST XRAY AND CONTINUE TO MONITOR. TIME SPENT ON CLINICAL ASSESSMENT, REVIWING LABS AND IMAGING, DECISION MAKING, AND DOCUMENTATION GREATER THAN 45 MINUTES. - Past Medical Family Social History Past Med/Fam/Surg Hx: No changes since H&P Allergies: Allergies amoxicillin [From Augmentin] Allergy (Verified 01/09/22 19:22) carbidopa Allergy (Verified 10/25/22 07:54) clavulanic acid [From Augmentin] Allergy (Verified 01/09/22 19:22) codeine Allergy (Verified 01/09/22 19:22) haloperidol [From Haldol] Allergy (Verified 01/09/22 19:22) lactose Allergy (Verified 01/09/22 19:22) levodopa Allergy (Verified 10/25/22 07:54) promethazine [From Phenergan] Allergy (Verified 01/09/22 19:22) shellfish derived Allergy (Verified 01/09/22 19:22) tramadol Allergy (Verified 10/25/22 07:54) vibegron [From Gemtesa] Allergy (Verified 01/09/22 19:22) - Review of Systems ROS: No change since H&P - Vital Signs and I&O's Vital Signs: Temperature 97.6 F Pulse Rate [Left Radial] 58 Pulse Rate 62 Respiratory Rate 18 Blood Pressure [Right Arm] 155/70 Blood Pressure [Left Arm] 169/83 Blood Pressure [Standing] 138/65 Blood Pressure [Sitting] 140/68 Blood Pressure [Lying] 135/73 Blood Pressure 171/76 O2 Sat by Pulse Oximetry 97 Intake and Output: Intake & Output 12/14/22 12/15/22 12/16/22 12/17/22 11:59 11:59 11:59 11:59 Intake Total 2340 / 2341 1796 Balance 2341 / 2341 1796 - Physical Exam Oriented: Person, Place Eyes: Normal Ear: Normal Nose: Normal Throat: Normal Respiratory: Diminished Cardiovascular: Bradycardia : Normal Auscultation: Bowel Sounds: Normal Tenderness: Normal Skin: Normal Musculoskeletal: Normal Psychiatric: Normal Mood Description: Calm Affect: Normal Speech Pattern: Clear, Appropriate - Laboratory and Diagnostics Result Diagrams: 12/16/22 04:38 12/16/22 04:38 Labs: 12/10/22 14:45 Blood Blood Culture - Final 12/10/22 14:40 Blood Blood Culture - Final Laboratory WBC 4.7 X10^3/uL (3.6-10.0) 12/16/22 04:38 RBC 3.56 X10^6/uL (4.7-6.0) L 12/16/22 04:38 Hgb 10.6 g/dL (13.5-18.0) L 12/16/22 04:38 Hct 30.8 % (42.0-54.0) L 12/16/22 04:38 MCV 86.4 fL (80.0-100.0) 12/16/22 04:38 MCH 29.9 pg (27.0-34.0) 12/16/22 04:38 MCHC 34.6 g/dL (33.0-35.0) 12/16/22 04:38 RDW 13.9 % (11.6-16.5) 12/16/22 04:38 Plt Count 142 X10^3/uL (150.0-450.0) L 12/16/22 04:38 MPV 8.0 fL (7.4-11.0) 12/16/22 04:38 Neut % (Auto) 59.5 % (42.0-75.0) 12/16/22 04:38 Lymph % (Auto) 22.9 % (21.0-51.0) 12/16/22 04:38 [place] % (Auto) 10.5 % (0.0-13.0) 12/16/22 04:38 Eos % (Auto) 6.5 % (0.9-2.9) H 12/16/22 04:38 Baso % (Auto) 0.6 % (0.2-1.0) 12/16/22 04:38 Neut # (Auto) 2.8 x10^3/uL (2.2-4.8) 12/16/22 04:38 Lymph # (Auto) 1.1 X10^3/uL (1.3-2.9) L 12/16/22 04:38 [place] # (Auto) 0.5 x10^3/uL (0.3-0.8) 12/16/22 04:38 Eos # (Auto) 0.3 x10^3/uL (0.0-0.2) H 12/16/22 04:38 Baso # (Auto) 0.0 X10^3/uL (0.0-0.1) 12/16/22 04:38 Absolute Nucleated RBC 0.1 /100WBC 12/16/22 04:38 Sodium 140 mmol/L (136-145) 12/16/22 04:38 Corrected Sodium TNP 12/16/22 04:38 Potassium 3.9 mmol/L (3.5-5.1) 12/16/22 04:38 Chloride 103 mmol/L (98-107) 12/16/22 04:38 Carbon Dioxide 30.9 mmol/L (21-32) 12/16/22 04:38 BUN 7 mg/dL (7-18) 12/16/22 04:38 Creatinine 0.90 mg/dL (0.70-1.30) 12/16/22 04:38 Est GFR (MDRD) Af Amer > 60 (>60) 12/16/22 04:38 Est GFR (MDRD) Non-Af > 60 (>60) 12/16/22 04:38 Glucose 91 mg/dL (65-99) 12/16/22 04:38 POC Glucose (mg/dL) 114 mg/dL (65-99) H 12/16/22 16:26 Lactic Acid 0.4 mmol/L (0.4-2.0) 12/10/22 14:40 Calcium 8.1 mg/dL (8.5-10.1) L 12/16/22 04:38 Corrected Calcium 9.1 mg/dL (8.5-10.1) 12/16/22 04:38 Phosphorus 3.6 mg/dL (2.6-4.7) 12/10/22 12:25 Magnesium 1.9 mg/dL (2.0-2.9) L 12/13/22 05:01 Total Bilirubin 0.50 mg/dL (0.2-1.0) 12/16/22 04:38 AST 30 Units/L (15-37) 12/16/22 04:38 ALT 37 Units/L (12-78) 12/16/22 04:38 Alkaline Phosphatase 78 Units/L (46-116) 12/16/22 04:38 Troponin I High Sens 14.6 ng/L (4.0-60.0) 12/10/22 12:25 B-Natriuretic Peptide 446 pg/mL (0-79) H 12/15/22 04:41 Total Protein 6.1 g/dL (6.4-8.2) L 12/16/22 04:38 Albumin 2.7 g/dL (3.4-5.0) L 12/16/22 04:38 Globulin 3.4 g/dL (2.5-4.5) 12/16/22 04:38 Albumin/Globulin Ratio 0.8 Ratio (1.1-2.1) L 12/16/22 04:38 Lipase 117 Units/L (73-393) 12/10/22 12:25 Specimen Type Clean catch urine 12/10/22 13:37 Urine Color Yellow (YELLOW) 12/10/22 13:37 Urine Appearance Clear (CLEAR) 12/10/22 13:37 Urine pH 7.0 (5.0 - 8.0) 12/10/22 13:37 Ur Specific [place] 1.010 (1.000-1.030) 12/10/22 13:37 Urine Protein 1+ (NEGATIVE) 12/10/22 13:37 Urine Glucose (UA) Negative (NEGATIVE) 12/10/22 13:37 Urine Ketones Negative (NEGATIVE) 12/10/22 13:37 Urine Blood Negative (NEGATIVE) 12/10/22 13:37 Urine Nitrite Negative (NEGATIVE) 12/10/22 13:37 Urine Bilirubin Negative (NEGATIVE) 12/10/22 13:37 Urine Urobilinogen Normal (NORMAL) 12/10/22 13:37 Ur Leukocyte Esterase Negative (NEGATIVE) 12/10/22 13:37 Urine RBC None seen /HPF (0-3) 12/10/22 13:37 Urine WBC None seen /HPF (0-5) 12/10/22 13:37 Ur Squamous Epith Cells Rare /HPF (NEGATIVE) 12/10/22 13:37 Urine Bacteria Negative /HPF (NEGATIVE) 12/10/22 13:37 Ur Culture Indicated? No/not indicated 12/10/22 13:37 Resp Viral Panel (PCR) See scanned report 12/10/22 17:40 - Plan (1) Pneumonia Status: Acute Qualifiers: Pneumonia type: due to unspecified organism Laterality: right Lung location: lower lobe of lung Qualified Code(s): J18.9 - Pneumonia, unspecified organism Plan: SUPPLEMENTAL OXYGEN, RESPIRATORY THERAPY, D51/2 NS AT 80 ML/HR, ROCEPHIN 1G IV DAILY, PULMICORT NEBS BID, XOPENEX NEBS Q6H, LOVENOX 40MG SC DAILY, PROTONIX 40MG IV DAILY, AND HIS HOME MEDICATIONS WERE RESUMED. (2) Generalized weakness Status: Acute (3) Atrial fibrillation Status: Acute Qualifiers: Atrial fibrillation type: unspecified Qualified Code(s): I48.91 - Unsp ecified atrial fibrillation (4) Hypertension Status: Chronic Qualifiers: Hypertension type: primary hypertension (5) Hyperlipidemia Status: Chronic Qualifiers: Hyperlipidemia type: mixed hyperlipidemia (6) Dementia Status: Chronic Qualifiers: Dementia type: unspecified type Dementia severity: unspecified severity Dementia behavioral or psychological symptom: unspecified whether behavioral, psychotic, or mood disturbance or anxiety Qualified Code(s): F03.90 - Unspecified dementia, unspecified severity, without behavioral disturbance, psychotic disturbance, mood disturbance, and anxiety (7) CAD (coronary artery disease) Status: Chronic Qualifiers: Coronary Disease-Associated Artery/Lesion type: [place] artery [place] vs. transplanted heart: [place] heart Associated angina: unspecified whether angina present Qualified Code(s): I25.10 - Atherosclerotic heart disease of [place] coronary artery without angina pectoris
[2022-12-16] MEDS: CARDURA PO SCH (20:35)
[2022-12-16] MEDS: ZESTRIL TAB 5 MG PO SCH (20:35)
[2022-12-16] MEDS: FESOTERODINE 4 MG PO SCH (20:36)
[2022-12-16] MEDS: ZOCOR TAB 40 MG PO SCH (20:36)
[2022-12-16] MEDS: CORDARONE TAB 200 MG PO SCH (20:36)
[2022-12-17] MEDS: XOPENEX 1.25 MG/3 ML NEBULE NEB SCH ×4 (00:20→17:14)
[2022-12-17] MEDS: D5 1/2 NS 1,000 ML 1,000 ML IV SCH ×3 (00:47→16:37)
[2022-12-17 06:30] LABS: BASOPHILS % (AUTO) 0.6 % (0.2-1.0); EOSINOPHILS # (AUTO) 0.2 x10^3/uL (0.0-0.2); EOSINOPHILS % (AUTO) 5.9 % (0.9-2.9); HEMATOCRIT 29.2 % (42.0-54.0); HEMOGLOBIN 10.2 g/dL (13.5-18.0); MEAN CORPUSCULAR HEMOGLOBIN 30.2 pg (27.0-34.0); MEAN CORPUSCULAR HGB CONC 34.8 g/dL (33.0-35.0); MEAN CORPUSCULAR VOLUME 86.9 fL (80.0-100.0); MEAN PLATELET VOLUME 8.5 fL (7.4-11.0); MONOCYTES # (AUTO) 0.5 x10^3/uL (0.3-0.8); NEUTROPHILS # (AUTO) 2.4 x10^3/uL (2.2-4.8); NEUTROPHILS % (AUTO) 57.5 % (42.0-75.0); PLATELET COUNT 144 X10^3/uL (150.0-450.0); RED BLOOD COUNT 3.36 X10^6/uL (4.7-6.0); RED CELL DISTRIBUTION WIDTH 14.2 % (11.6-16.5); WHITE BLOOD COUNT 4.2 X10^3/uL (3.6-10.0)
[2022-12-17 06:43] LABS: ALANINE AMINOTRANSFERASE 36 Units/L (12-78); ALBUMIN 2.6 g/dL (3.4-5.0); ALKALINE PHOSPHATASE 73 Units/L (46-116); ASPARTATE AMINO TRANSFERASE 31 Units/L (15-37); BLOOD UREA NITROGEN 6 mg/dL (7-18); CALCIUM 8.2 mg/dL (8.5-10.1); CARBON DIOXIDE 27.4 mmol/L (21-32); CHLORIDE 107 mmol/L (98-107); COR CA(FOR HYPOALB) 9.3 mg/dL (8.5-10.1); CREATININE 0.82 mg/dL (0.70-1.30); GLUCOSE 95 mg/dL (65-99); MAGNESIUM 1.8 mg/dL (2.0-2.9); POTASSIUM 3.6 mmol/L (3.5-5.1); SODIUM 142 mmol/L (136-145); TOTAL PROTEIN 5.8 g/dL (6.4-8.2); eGFR NON BLACK RACES > 60 (>60)
--- NOTE | 2022-12-17 07:03 | RAD ---
HISTORYPneumonia and shortness of breathSTUDYCHEST, 1 [id number]/2023FINDINGSThe trachea is midline. The cardiac silhouette is enlarged with a tortuous thoracic aorta. Pleural parenchymal opacity the right lower lobe is observed with improved aeration. Right-sided pleural effusion is noted. The bony thorax is unremarkable.IMPRESSIONPersistent right-sided pleural effusion with improved aeration of the right lower lobe.Electronically signed by: YOCASTA SU (December 17, 2022 06:58:56)
[2022-12-17] MEDS ORDERED: LEXAPRO ONE (07:59)
[2022-12-17] MEDS: PULMICORT NEB TX 0.5 MG NEB SCH ×2 (08:41→21:00)
[2022-12-17 09:26] VITALS: BMI 22.2
[2022-12-17] MEDS: ASPIRIN EC 81 MG PO SCH (09:53)
[2022-12-17] MEDS: EXELON PO SCH ×2 (09:54→20:15)
[2022-12-17] MEDS: VITAMIN D3 125 mcg (5,000 UNITS) PO SCH (09:54)
[2022-12-17] MEDS: LEXAPRO PO SCH (09:54)
[2022-12-17] MEDS: LOPRESSOR TAB 25 MG PO SCH (09:54)
[2022-12-17] MEDS: HEMOCYTE-PLUS PO SCH (09:54)
[2022-12-17] MEDS: ROCEPHIN VIAL 1 GRAM 1 G in NS 100 ML IV 100 ML IV SCH (09:55)
[2022-12-17] MEDS: PROTONIX INJ 40 MG VIAL IVP SCH (09:55)
[2022-12-17] MEDS: SYNTHROID 75 mcg TAB PO SCH (09:55)
[2022-12-17] MEDS: LOVENOX INJ 40 MG SYR SC SCH (09:55)
[2022-12-17] MEDS: COLACE CAP 100 MG PO PRN (09:56)
[2022-12-17] MEDS: MAGNESIUM SULFATE 1 GRAM/100 mL PREMIX 1 G/100 ML BAG IV PRN (09:57)
--- NOTE | 2022-12-17 11:35 | PCM.PROG ---
Progress Note - Progress Note for Day of Date of Exam: 12/17/22 - Subjective Subjective: IS CURRENTLY INPATIENT STATUS FOR TREATMENT OF STREPTOCOCCUS PNEUMONIA FAILED OUTPATIENT TREATMENT, CHF, AND GENERALIZED WEAKNESS. HE HAS ALSO HAD SOME CONSTIPATION SINCE ADMISSION. HE HAS A PMH OF ATRIAL FIBRILLATION, HTN, HYPERLIPIDEMIA, DEMENTIA, AND CAD. TODAY, HE IS ALERT AND ORIENTED, LYING IN BED ON MORNING ROUNDS. PATIENT IS ABLE TO ANSWER QUESTIONS AND FOLLOW COMMANDS APPROPRIATELY. HIS SPOUSE IS AT BEDSIDE AND REPORTS THAT HE HAS HAD AN UNEVENTFUL NIGHT. PATIENT COMPLAINS OF SHORTNESS OF BREATH, SLIGHTLY IMPROVED SINCE ADMISSION. HE CONTINUES WITH GENERALIZED WEAKNESS. ON EXAMINATION, HEART IS REGULAR IN RATE AND RHYTHM. BILATERAL LUNGS ARE NOTED WITH RHONCHI THROUGHOUT. ABDOMEN IS ROUND, SOFT, AND NON-TENDER WITH NORMAL BOWEL SOUNDS NOTED IN ALL QUADRANTS. NO SIGNIFICANT EDEMA NOTED TO EXTREMITIES. HE DOES HAVE DIFFUSE UPPER AND LOWER EXTREMITY MUSCLE ATROPHY. HIS VITALS THIS MORNING ARE: 97.5-65-18-98%-183/84. LABS WERE OBTAINED. WBC 4.2, RBC 3.36, HGB 10.2, HCT 29.2, PLT COUNT 144, SODIUM 142, POTASSIUM 3.6, CHLORIDE 107, BUN 6, CREATININE 0.82, GLUCOSE 95, CALCIUM 8.2, MAGNESIUM 1.8, AST 31, ALT 36, ALK PHSO 73, TOTAL PROTEIN 5.8, ALBUMIN 2.6. A CHEST XRAY WAS OBTAINED AND REVEALED: Persistent right-sided pleural effusion with improved aeration of the right lower lobe. HE IS CURRENTLY RECEIVING D51/2 NS AT 75 ML/HR, ROCEPHIN 1G IV DAILY, PULMICORT NEBS BID, XOPENEX NEBS Q6H, LOVENOX 40MG SC DAILY, PROTONIX 40MG IV DAILY, THE POTASSIUM AND MAGNESIUM PROTOCOLS, AND HIS HOME MEDICATIONS WERE RESUMED. HOME MEDICATIONS INCLUDE: AMIODARONE, ASPIRIN, VITAMIN D3, VITAMIN B12, COLACE, ARDURA, LEXAPRO, IBUPROFEN, LEVOTHYROXINE, LISINOPRIL, METOPROLOL, HEMOCYTE PLUS, MIRALAX, EXELON, SIMVASTATIN, AND TRAZODONE. WE WILL CONTINUE WITH CURRENT PLAN OF CARE TODAY. OTHERWISE, WE WILL FOLLOW-UP WITH AM LABS AND CHEST XRAY AND CONTINUE TO MONITOR. TIME SPENT ON CLINICAL ASSESSMENT, REVIWING LABS AND IMAGING, DECISION MAKING, AND DOCUMENTATION GREATER THAN 45 MINUTES. - Past Medical Family Social History Past Med/Fam/Surg Hx: No changes since H&P Allergies: Allergies amoxicillin [From Augmentin] Allergy (Verified 01/09/22 19:22) carbidopa Allergy (Verified 10/25/22 07:54) clavulanic acid [From Augmentin] Allergy (Verified 01/09/22 19:22) codeine Allergy (Verified 01/09/22 19:22) haloperidol [From Haldol] Allergy (Verified 01/09/22 19:22) lactose Allergy (Verified 01/09/22 19:22) levodopa Allergy (Verified 10/25/22 07:54) promethazine [From Phenergan] Allergy (Verified 01/09/22 19:22) shellfish derived Allergy (Verified 01/09/22 19:22) tramadol Allergy (Verified 10/25/22 07:54) vibegron [From Gemtesa] Allergy (Verified 01/09/22 19:22) - Review of Systems ROS: No change since H&P - Vital Signs and I&O's Vital Signs: Temperature 97.5 F Pulse Rate [Left Radial] 65 Pulse Rate 73 Respiratory Rate 18 Blood Pressure [Right Arm] 155/70 Blood Pressure [Left Arm] 183/84 Blood Pressure [Standing] 138/65 Blood Pressure [Sitting] 140/68 Blood Pressure [Lying] 135/73 Blood Pressure 171/76 O2 Sat by Pulse Oximetry 98 Intake and Output: Intake & Output 12/14/22 12/15/22 12/16/22 12/17/22 11:59 11:59 11:59 11:59 Intake Total 2341 / 2341 1797 / 1797 2001 1734 / 1734 Balance 2341 / 2341 1797 / 1797 2001 1734 / 1734 - Physical Exam Oriented: Person, Place Eyes: Normal Ear: Normal Nose: Normal Throat: Normal Respiratory: Diminished Cardiovascular: Bradycardia : Normal Auscultation: Bowel Sounds: Normal Palpation: Normal Tenderness: Normal Skin: Normal Musculoskeletal: Normal Psychiatric: Normal Mood Description: Calm Affect: Normal Speech Pattern: Clear, Appropriate - Laboratory and Diagnostics Result Diagrams: 12/17/22 04:53 12/17/22 04:53 Labs: 12/10/22 14:45 Blood Blood Culture - Final 12/10/22 14:40 Blood Blood Culture - Final Laboratory WBC 4.2 X10^3/uL (3.6-10.0) 12/17/22 04:53 RBC 3.36 X10^6/uL (4.7-6.0) L 12/17/22 04:53 Hgb 10.2 g/dL (13.5-18.0) L 12/17/22 04:53 Hct 29.2 % (42.0-54.0) L 12/17/22 04:53 MCV 86.9 fL (80.0-100.0) 12/17/22 04:53 MCH 30.2 pg (27.0-34.0) 12/17/22 04:53 MCHC 34.8 g/dL (33.0-35.0) 12/17/22 04:53 RDW 14.2 % (11.6-16.5) 12/17/22 04:53 Plt Count 144 X10^3/uL (150.0-450.0) L 12/17/22 04:53 MPV 8.5 fL (7.4-11.0) 12/17/22 04:53 Neut % (Auto) 57.5 % (42.0-75.0) 12/17/22 04:53 Lymph % (Auto) 25.0 % (21.0-51.0) 12/17/22 04:53 [place] % (Auto) 11.0 % (0.0-13.0) 12/17/22 04:53 Eos % (Auto) 5.9 % (0.9-2.9) H 12/17/22 04:53 Baso % (Auto) 0.6 % (0.2-1.0) 12/17/22 04:53 Neut # (Auto) 2.4 x10^3/uL (2.2-4.8) 12/17/22 04:53 Lymph # (Auto) 1.0 X10^3/uL (1.3-2.9) L 12/17/22 04:53 [place] # (Auto) 0.5 x10^3/uL (0.3-0.8) 12/17/22 04:53 Eos # (Auto) 0.2 x10^3/uL (0.0-0.2) 12/17/22 04:53 Baso # (Auto) 0.0 X10^3/uL (0.0-0.1) 12/17/22 04:53 Absolute Nucleated RBC 0.0 /100WBC 12/17/22 04:53 Sodium 142 mmol/L (136-145) 12/17/22 04:53 Corrected Sodium TNP 12/17/22 04:53 Potassium 3.6 mmol/L (3.5-5.1) 12/17/22 04:53 Chloride 107 mmol/L (98-107) 12/17/22 04:53 Carbon Dioxide 27.4 mmol/L (21-32) 12/17/22 04:53 BUN 6 mg/dL (7-18) L 12/17/22 04:53 Creatinine 0.82 mg/dL (0.70-1.30) 12/17/22 04:53 Est GFR (MDRD) Af Amer > 60 (>60) 12/17/22 04:53 Est GFR (MDRD) Non-Af > 60 (>60) 12/17/22 04:53 Glucose 95 mg/dL (65-99) 12/17/22 04:53 POC Glucose (mg/dL) 104 mg/dL (65-99) H 12/17/22 05:13 Lactic Acid 0.4 mmol/L (0.4-2.0) 12/10/22 14:40 Calcium 8.2 mg/dL (8.5-10.1) L 12/17/22 04:53 Corrected Calcium 9.3 mg/dL (8.5-10.1) 12/17/22 04:53 Phosphorus 3.6 mg/dL (2.6-4.7) 12/10/22 12:25 Magnesium 1.8 mg/dL (2.0-2.9) L 12/17/22 04:53 Total Bilirubin 0.40 mg/dL (0.2-1.0) 12/17/22 04:53 AST 31 Units/L (15-37) 12/17/22 04:53 ALT 36 Units/L (12-78) 12/17/22 04:53 Alkaline Phosphatase 73 Units/L (46-116) 12/17/22 04:53 Troponin I High Sens 14.6 ng/L (4.0-60.0) 12/10/22 12:25 B-Natriuretic Peptide 446 pg/mL (0-79) H 12/15/22 04:41 Total Protein 5.8 g/dL (6.4-8.2) L 12/17/22 04:53 Albumin 2.6 g/dL (3.4-5.0) L 12/17/22 04:53 Globulin 3.2 g/dL (2.5-4.5) 12/17/22 04:53 Albumin/Globulin Ratio 0.8 Ratio (1.1-2.1) L 12/17/22 04:53 Lipase 117 Units/L (73-393) 12/10/22 12:25 Specimen Type Clean catch urine 12/10/22 13:37 Urine Color Yellow (YELLOW) 12/10/22 13:37 Urine Appearance Clear (CLEAR) 12/10/22 13:37 Urine pH 7.0 (5.0 - 8.0) 12/10/22 13:37 Ur Specific [place] 1.010 (1.000-1.030) 12/10/22 13:37 Urine Protein 1+ (NEGATIVE) 12/10/22 13:37 Urine Glucose (UA) Negative (NEGATIVE) 12/10/22 13:37 Urine Ketones Negative (NEGATIVE) 12/10/22 13:37 Urine Blood Negative (NEGATIVE) 12/10/22 13:37 Urine Nitrite Negative (NEGATIVE) 12/10/22 13:37 Urine Bilirubin Negative (NEGATIVE) 12/10/22 13:37 Urine Urobilinogen Normal (NORMAL) 12/10/22 13:37 Ur Leukocyte Esterase Negative (NEGATIVE) 12/10/22 13:37 Urine RBC None seen /HPF (0-3) 12/10/22 13:37 Urine WBC None seen /HPF (0-5) 12/10/22 13:37 Ur Squamous Epith Cells Rare /HPF (NEGATIVE) 12/10/22 13:37 Urine Bacteria Negative /HPF (NEGATIVE) 12/10/22 13:37 Ur Culture Indicated? No/not indicated 12/10/22 13:37 Resp Viral Panel (PCR) See scanned report 12/10/22 17:40 - Plan (1) Pneumonia Status: Acute Qualifiers: Pneumonia type: due to unspecified organism Laterality: right Lung location: lower lobe of lung Qualified Code(s): J18.9 - Pneumonia, unspecified organism Plan: SUPPLEMENTAL OXYGEN, RESPIRATORY THERAPY, D51/2 NS AT 80 ML/HR, ROCEPHIN 1G IV DAILY, PULMICORT NEBS BID, XOPENEX NEBS Q6H, LOVENOX 40MG SC DAILY, PROTONIX 40MG IV DAILY, AND HIS HOME MEDICATIONS WERE RESUMED. (2) Generalized weakness Status: Acute (3) Atrial fibrillation Status: Acute Qualifiers: Atrial fibrillation type: unspecified Qualified Code(s): I48.91 - Unspecified atrial fibrillation (4) Hypertension Status: Chronic Qualifiers: Hypertension type: primary hypertension (5) Hyperlipidemia Status: Chronic Qualifiers: Hyperlipidemia type: mixed hyperlipidemia (6) Dementia Status: Chronic Qualifiers: Dementia type: unspecified type Dementia severity: unspecified severity Dementia behavioral or psychological symptom: unspecified whether behavioral, psychotic, or mood disturbance or anxiety Qualified Code(s): F03.90 - Unspecified dementia, unspecified severity, without behavioral disturbance, psychotic disturbance, mood disturbance, and anxiety (7) CAD (coronary artery disease) Status: Chronic Qualifiers: Coronary Disease-Associated Artery/Lesion type: [place] artery [place] vs. transplanted heart: [place] heart Associated angina: unspecified whether angina present Qualified Code(s): I25.10 - Atherosclerotic heart disease of [place] coronary artery without angina pectoris
[2022-12-17] MEDS: K-DUR TAB 20 MEQ PO SCH (11:59)
[2022-12-17] MEDS: CARDURA PO SCH (20:14)
[2022-12-17] MEDS: ZESTRIL TAB 5 MG PO SCH (20:15)
[2022-12-17] MEDS: ZOCOR TAB 40 MG PO SCH (20:15)
[2022-12-17] MEDS: CORDARONE TAB 200 MG PO SCH (20:15)
[2022-12-17] MEDS: FESOTERODINE 4 MG PO SCH (20:48)
[2022-12-17] MEDS ORDERED: VITAMIN B-12 PO SCH (21:00)
[2022-12-18] MEDS: D5 1/2 NS 1,000 ML 1,000 ML IV SCH (05:33)
--- NOTE | 2022-12-18 05:50 | RAD ---
HISTORYShortness of breathSTUDYSingle-view [id number] trachea is midline. The cardiac silhouette is enlarged with a tortuous thoracic aorta. Stable right lower lobe infiltrate with blunting of the right costophrenic angle consistent very small right-sided pleural effusion. The bony thorax is unremarkable.IMPRESSIONStable radiographElectronically signed by: YOCASTA SU (December 18, 2022 05:48:40)
[2022-12-18] MEDS: XOPENEX 1.25 MG/3 ML NEBULE NEB SCH ×2 (06:00)
[2022-12-18 06:24] LABS: BASOPHILS % (AUTO) 0.7 % (0.2-1.0); EOSINOPHILS # (AUTO) 0.2 x10^3/uL (0.0-0.2); EOSINOPHILS % (AUTO) 4.7 % (0.9-2.9); HEMATOCRIT 29.3 % (42.0-54.0); HEMOGLOBIN 10.1 g/dL (13.5-18.0); LYMPHOCYTES % (AUTO) 25.3 % (21.0-51.0); MEAN CORPUSCULAR HEMOGLOBIN 30.1 pg (27.0-34.0); MEAN CORPUSCULAR HGB CONC 34.3 g/dL (33.0-35.0); MEAN CORPUSCULAR VOLUME 87.6 fL (80.0-100.0); MEAN PLATELET VOLUME 8.3 fL (7.4-11.0); MONOCYTES # (AUTO) 0.4 x10^3/uL (0.3-0.8); MONOCYTES % (AUTO) 10.4 % (0.0-13.0); NEUTROPHILS # (AUTO) 2.4 x10^3/uL (2.2-4.8); NEUTROPHILS % (AUTO) 58.9 % (42.0-75.0); PLATELET COUNT 137 X10^3/uL (150.0-450.0); RED BLOOD COUNT 3.34 X10^6/uL (4.7-6.0); RED CELL DISTRIBUTION WIDTH 14.1 % (11.6-16.5)
[2022-12-18 06:27] LABS: ALANINE AMINOTRANSFERASE 36 Units/L (12-78); ALBUMIN 2.6 g/dL (3.4-5.0); ALKALINE PHOSPHATASE 71 Units/L (46-116); ASPARTATE AMINO TRANSFERASE 32 Units/L (15-37); BLOOD UREA NITROGEN 4 mg/dL (7-18); CARBON DIOXIDE 29.7 mmol/L (21-32); CHLORIDE 107 mmol/L (98-107); COR CA(FOR HYPOALB) 9.1 mg/dL (8.5-10.1); CREATININE 0.83 mg/dL (0.70-1.30); GLUCOSE 96 mg/dL (65-99); MAGNESIUM 1.8 mg/dL (2.0-2.9); POTASSIUM 3.5 mmol/L (3.5-5.1); SODIUM 141 mmol/L (136-145); TOTAL PROTEIN 5.8 g/dL (6.4-8.2); eGFR NON BLACK RACES > 60 (>60)
[2022-12-18] MEDS ORDERED: LEXAPRO ONE (08:06)
[2022-12-18] MEDS: PULMICORT NEB TX 0.5 MG NEB SCH (08:15)
[2022-12-18] MEDS: ASPIRIN EC 81 MG PO SCH (09:24)
[2022-12-18] MEDS: ROCEPHIN VIAL 1 GRAM 1 G in NS 100 ML IV 100 ML IV SCH (09:24)
[2022-12-18] MEDS: LOVENOX INJ 40 MG SYR SC SCH (09:24)
[2022-12-18] MEDS: K-DUR TAB 20 MEQ PO SCH (09:25)
[2022-12-18] MEDS: PROTONIX INJ 40 MG VIAL IVP SCH (09:25)
[2022-12-18] MEDS: LOPRESSOR TAB 25 MG PO SCH (09:26)
[2022-12-18] MEDS: EXELON PO SCH (09:26)
[2022-12-18] MEDS: LEXAPRO PO SCH (09:26)
[2022-12-18] MEDS: VITAMIN D3 125 mcg (5,000 UNITS) PO SCH (09:27)
[2022-12-18] MEDS: SYNTHROID 75 mcg TAB PO SCH (09:27)
[2022-12-18] MEDS: HEMOCYTE-PLUS PO SCH (09:27)
[2022-12-18] MEDS: MAGNESIUM SULFATE 1 GRAM/100 mL PREMIX 1 G/100 ML BAG IV PRN (09:58)
[2022-12-18 10:36] VITALS: BP 165/78
== END 2022-12-18 14:05 | disposition home health service (06) | DRG 194 ==
LOC: ER 11:48 → MED/SURG 11:48
PROVIDERS: ADMIT Internal Medicine; ATTEND Internal Medicine